=== PATIENT | female | born 1950 | race Caucasian/White ===

== ENCOUNTER 2019-08-08 19:57 | Inpatient (IN) | payer BC, MEDICARE ==
[~2019-08-08] VITALS: Ht 154.9 cm; Wt 88.6 kg
--- NOTE | 2019-08-08 20:04 | NUR ---
Verbal order from Dr Maciel to cancel the NS bolus since patient had 3L of NS at [facility].
[2019-08-08] MEDS ORDERED: normal saline 1000ML IV soln IV ONE (20:05)
--- NOTE | 2019-08-08 20:31 | NUR ---
Pt aware that we need a urine sample when she is able to give us one.
[2019-08-08 20:37] LABS: BASOPHILS % (AUTO) 0.1 % (0-1); EOSINOPHILS # (AUTO) 0.1 X10'3 (0-0.9); EOSINOPHILS % (AUTO) 0.5 % (0-6); HEMOGLOBIN 10.9 g/dl (12.0-16.0); LYMPHOCYTES # (AUTO) 0.6 X10'3 (1.1-4.8); LYMPHOCYTES % (AUTO) 4.2 % (21-51); MEAN CORPUSCULAR HEMOGLOBIN 31.1 PG (27.0-31.0); MEAN CORPUSCULAR HGB CONC 32.9 g/dL (33.0-36.5); MEAN CORPUSCULAR VOLUME 94.5 FL (78-98); MEAN PLATELET VOLUME 8.6 FL (7.4-10.4); MONOCYTES # (AUTO) 0.8 X10'3 (0-0.9); MONOCYTES % (AUTO) 5.6 % (2-12); NEUTROPHILS % (AUTO) 89.6 % (42-75); PLATELET COUNT 198 X10'3 (140-440); RED BLOOD COUNT 3.49 X10'6 (4.20-5.60); RED CELL DISTRIBUTION WIDTH 14.4 % (11.5-14.5); WHITE BLOOD COUNT 14.5 X10'3 (4.5-11.0)
[2019-08-08 20:48] LABS: PARTIAL THROMBOPLASTIN TIME 25 SECONDS (22-32)
[2019-08-08 20:57] LABS: ALANINE AMINOTRANSFERASE 19 U/L (12-78); ALBUMIN 2.8 G/DL (3.4-5.0); ALBUMIN/GLOBULIN RATIO 0.7 (1.1-1.5); ALKALINE PHOSPHATASE 67 IU/L (46-116); ANION GAP 12 (8-16); ASPARTATE AMINO TRANSFERASE 13 U/L (10-37); BILIRUBIN,TOTAL 0.7 MG/DL (0.1-1.0); BLOOD UREA NITROGEN 32 MG/DL (7-18); BUN/CREATININE RATIO 16.8 (6.6-38.0); CALCIUM 8.7 MG/DL (8.5-10.1); CHLORIDE 105 MMOL/L (99-107); CREATININE 1.91 MG/DL (0.40-0.90); GLUCOSE 137 MG/DL (70-104); MAGNESIUM 1.8 MG/DL (1.5-2.4); SODIUM 140 MMOL/L (135-145); TOTAL CARBON DIOXIDE 22.8 MMOL/L (24-32); eGFR 26 ML/MIN
[2019-08-08] MEDS ORDERED: temazepam 15mg capsule PO PRN (21:00)
[2019-08-08] MEDS ORDERED: GLIP5TAB13 PO (21:05)
[2019-08-08] MEDS ORDERED: SITA100T11 PO (21:05)
[2019-08-08] MEDS ORDERED: METF1000 PO (21:05)
[2019-08-08] MEDS ORDERED: GABA600T13 PO (21:05)
[2019-08-08] MEDS ORDERED: DULO-31 PO (21:05)
[2019-08-08] MEDS ORDERED: MERC50TA16 PO (21:05)
[2019-08-08] MEDS ORDERED: ATOR10TA70 PO (21:05)
[2019-08-08] MEDS ORDERED: PANT40TA4 PO (21:05)
[2019-08-08] MEDS ORDERED: BENA1TAB14 PO (21:05)
[2019-08-08] MEDS ORDERED: FOLI0.4T14 PO (21:12)
[2019-08-08] MEDS ORDERED: bisacodyl 10mg suppository rectal RC PRN (21:30)
[2019-08-08] MEDS ORDERED: magnesium Cl slow-release 64mg tablet PO PRN (21:30)
[2019-08-08] MEDS ORDERED: magnesium 2GM in 50ml NS 50 ML IV PRN (21:30)
[2019-08-08] MEDS ORDERED: metoclopramide 5 mg/ml inj IV PRN (21:30)
[2019-08-08] MEDS ORDERED: magnesium hydroxide 30ml (MOM) UD suspension PO PRN (21:30)
[2019-08-08] MEDS ORDERED: HYDROcodone/acetaminophen 10/325mg tab PO PRN (21:30)
[2019-08-08] MEDS ORDERED: acetaminophen 650mg rectal suppository RC PRN (21:30)
[2019-08-08] MEDS ORDERED: potassium Cl 20 mEq SR tablet PO PRN ×2 (21:30)
[2019-08-08] MEDS ORDERED: HYDROmorphone inj. 0.5 MG/0.5 ML DISP.SYRIN IV PRN (21:30)
[2019-08-08] MEDS ORDERED: potassium CL 10mEq/100ml bag 100 ML IV PRN ×2 (21:30)
[2019-08-08] MEDS ORDERED: ondansetron/PF 4mg/2ml inj IV PRN (21:30)
[2019-08-08] MEDS ORDERED: HYDROmorphone 1 mg/ml syringe IV PRN (21:30)
[2019-08-08] MEDS ORDERED: magnesium 4gm in 100ml NS 100 ML IV PRN (21:30)
[2019-08-08] MEDS ORDERED: mag hydrox/Alum hydrox/simeth 30ml oral suspension PO PRN (21:30)
[2019-08-08] MEDS ORDERED: acetaminophen 325mg tablet PO PRN ×2 (21:30)
[2019-08-08 21:39] LABS: CLARITY,URINE CLEAR (Clear); COLOR,URINE YELLOW (Yellow); GLUCOSE, URINE NEGATIVE (Neg); KETONES,URINE NEGATIVE (Neg); LEUKOCYTE ESTERASE ,URINE SMALL (Neg); NITRITES, URINE NEGATIVE (Neg); OCCULT BLOOD,URINE NEGATIVE (Neg); PH,URINE 5.5 (4.8-8.0); PROTEIN,URINE 30 mg/dl (Neg)
[2019-08-08 21:41] LABS: UA COLLECTION TYPE CLN CATCH MIDSTREAM
[2019-08-08 21:50] LABS: BACTERIA,URINE FEW /HPF (Neg); RBC,URINE NONE SEEN /HPF (0-2); SQUAMOUS EPITHELIAL CELL,UR FEW /LPF (FEW); WBC,URINE 0-4 /HPF (0-4)
[2019-08-08 22:50] VITALS: BP 122/45
[2019-08-08] MEDS: VANCOmycin 1250MG/NS 250ml Bag 250 ML IV SCH (23:24)
[2019-08-08] MEDS: normal saline 1000ml 1,000 ML IV SCH (23:28)
--- NOTE | 2019-08-08 23:35 | NUR ---
PT'S EKG SHOWED AFIB. PT IS NOT ON ANY BLOOD THINNERS AND NOT IN HISTORY. DR. FAIRBANKS MADE AWARE THIS IS NEW FOR THE PATIENT. LEFT MESSAGE WITH RECEIVING NURSE ON ORTH ABOUT PT'S NEW ONSET AFIB FROM EKG FOUND AT [facility] IN THE ED. DR. FAIRBANKS STATES HE WILL F/U WITH IT.
--- NOTE | 2019-08-08 23:37 | NUR ---
LAST NOTE IN REGARDS TO NEW ONSET AFIB WAS WRITTEN BY THIS NURSE LYSSA SCHERER NOT LYSSA GLEZ.
[2019-08-09] VITALS (20 sets, daily range): BP systolic 94–135; BP diastolic 31–84
[2019-08-09] MEDS: piperacillin/tazo 3.375gm/50ml 50 ML IV SCH ×3 (01:28→16:03)
[2019-08-09 05:09] LABS: BASOPHILS % (AUTO) 0.4 % (0-1); EOSINOPHILS # (AUTO) 0.1 X10'3 (0-0.9); EOSINOPHILS % (AUTO) 0.7 % (0-6); HEMOGLOBIN 9.3 g/dl (12.0-16.0); LYMPHOCYTES # (AUTO) 0.7 X10'3 (1.1-4.8); LYMPHOCYTES % (AUTO) 5.4 % (21-51); MEAN CORPUSCULAR HEMOGLOBIN 31.1 PG (27.0-31.0); MEAN CORPUSCULAR HGB CONC 33.2 g/dL (33.0-36.5); MEAN CORPUSCULAR VOLUME 93.6 FL (78-98); MEAN PLATELET VOLUME 9.1 FL (7.4-10.4); MONOCYTES # (AUTO) 0.9 X10'3 (0-0.9); MONOCYTES % (AUTO) 7.2 % (2-12); NEUTROPHILS # (AUTO) 11.1 X10'3 (1.8-7.7); NEUTROPHILS % (AUTO) 86.3 % (42-75); PLATELET COUNT 202 X10'3 (140-440); RED CELL DISTRIBUTION WIDTH 14.4 % (11.5-14.5); WHITE BLOOD COUNT 12.9 X10'3 (4.5-11.0)
[2019-08-09 05:20] LABS: ALANINE AMINOTRANSFERASE 15 U/L (12-78); ALBUMIN 2.4 G/DL (3.4-5.0); ALBUMIN/GLOBULIN RATIO 0.6 (1.1-1.5); ALKALINE PHOSPHATASE 65 IU/L (46-116); ANION GAP 9 (8-16); ASPARTATE AMINO TRANSFERASE 7 U/L (10-37); BILIRUBIN,TOTAL 0.5 MG/DL (0.1-1.0); BLOOD UREA NITROGEN 31 MG/DL (7-18); BUN/CREATININE RATIO 17.9 (6.6-38.0); CALCIUM 8.7 MG/DL (8.5-10.1); CHLORIDE 109 MMOL/L (99-107); CHOL/HDL RATIO 2.8 (0.00-4.99); CHOLESTEROL 116 MG/DL (0-200); CREATININE 1.73 MG/DL (0.40-0.90); GLUCOSE 140 MG/DL (70-104); HDL CHOLESTEROL 42 MG/DL (35-60); LDL CHOLESTEROL 56 MG/DL (50-100); MAGNESIUM 1.8 MG/DL (1.5-2.4); POTASSIUM 3.9 MMOL/L (3.5-5.1); SODIUM 141 MMOL/L (135-145); TOTAL CARBON DIOXIDE 23.2 MMOL/L (24-32); TOTAL PROTEIN 6.1 G/DL (6.4-8.2); TRIGLYCERIDES 96 MG/DL (20-135); eGFR 29 ML/MIN
--- NOTE | 2019-08-09 06:15 | NUR ---
Patient in room ORTHO 4016. I have received report from LYSSA Araiza, and had the opportunity to ask questions and assume patient care.
[2019-08-09] MEDS: normal saline 1000ml 1,000 ML IV SCH ×2 (07:26→14:58)
[2019-08-09] MEDS: K and/or MAG REPLACEMENT MC SCH ×2 (08:00→20:00)
[2019-08-09] MEDS: duloxetine 30mg CAPSULE.DR PO SCH (08:11)
[2019-08-09] MEDS: folic acid 0.4mg tablet PO SCH (08:11)
[2019-08-09] MEDS: atorvastatin 10mg tablet PO SCH (08:12)
[2019-08-09] MEDS: lisinopril 20mg tablet PO SCH (08:13)
[2019-08-09] MEDS: HYDROchlorothiazide 12.5mg capsule PO SCH (08:13)
[2019-08-09] MEDS: pantoprazole 40mg Tablet.DR PO SCH (08:13)
[2019-08-09] MEDS ORDERED: ringers solution, lacted 1,000 ML IV SCH (10:58)
[2019-08-09] MEDS ORDERED: ondansetron/PF 4mg/2ml inj IV PRN (11:00)
[2019-08-09] MEDS ORDERED: morphine 4 MG/ML inj SYRINge IV PRN (11:00)
[2019-08-09] MEDS ORDERED: meperidine/PF 25mg/ml syringe IV PRN (11:00)
[2019-08-09] MEDS ORDERED: proCHLORperazine 10 MG/2 ml inj IV PRN (11:00)
[2019-08-09] MEDS ORDERED: HYDROmorphone inj. 0.5 MG/0.5 ML DISP.SYRIN IV PRN ×2 (11:00)
[2019-08-09] MEDS ORDERED: morphine 2 MG/ML inj. syringe IV PRN (11:00)
[2019-08-09] MEDS ORDERED: sevoflurane 250ml liquid IH ONE (11:52)
[2019-08-09] MEDS ORDERED: midazolam 2 mg/2 ml injection ONE (11:59)
[2019-08-09] MEDS ORDERED: LIDOcaine 2% (20mg/ml) 5ml vial ONE (12:05)
[2019-08-09] MEDS ORDERED: propofol inj 20 ML IV ONE (12:05)
[2019-08-09] MEDS ORDERED: fentaNYL/PF 50MCG/1 ML 2ML syringe ONE (12:06)
[2019-08-09] MEDS ORDERED: dexamethasone sod phosphate 4mg/ml inj. ONE (12:08)
[2019-08-09] MEDS ORDERED: ondansetron/PF 4mg/2ml inj ONE (12:08)
--- NOTE | 2019-08-09 12:51 | NUR ---
DM Consult: Pt admit w/ L foot venous ulcer, cellulitis, and currently in OR per RN. A1C 7.2. Pt would benefit from high protein/DM eds once stable post-op. Will continue to monitor. Rec: 1. advance to carb controlled diet as medically indicated post-op 2. monitor for ONS needs post-op 3. routine bowel care 4. MVI for wound healing post-op 5. wt per rx 6. DM/high protein eds once stable post-op Addendum: 08/09/19 at [address] Amended: Links added.
--- NOTE | 2019-08-09 13:02 | NUR ---
Received from OR via , accompanied by Anesthesiologist DR BUTLER and report given by Anesthesiolgist. PT IS AWAKE, ALERT, MOVING EXT X 4, RIGHT PEDAL PULSE +3, LEFT PEDAL PULSE DOPPLER, LEFT GREAT TOE AMP HAS ONE PIECE OF BLACK SPONGE WITH WOUND VAC 125MMHG, LOW, CONT, NO C/O PAIN, VSS, PIV RIGHT AC 18G PATENT WITH LR 100ML/HR, SCDS.
--- NOTE | 2019-08-09 14:00 | NUR ---
Report called to receiving nurse. Transferred via BED Belongings . Special Issues communicated to receiving nurse.PT IS AWAKE, ALERT, MOVING EXT X 4, LEFT PEDAL PULSE DOPPLER, NO C/O PAIN, VSS, JAM ICE WATER, PIV PATENT, WOUND VAC TO 125MMHG LOW CONT. PLACED WOUND VAC SETTING AND WOUND CARE CONSULT ORDERS, PT MEETS DISCHARGE CRITERIA.
--- NOTE | 2019-08-09 18:15 | NUR ---
Problems reprioritized. Patient report given, questions answered & plan of care reviewed with LYSSA Taylor.
[2019-08-09] MEDS ORDERED: linagliptin 5mg tablet PO SCH (19:28)
[2019-08-09] MEDS ORDERED: MESSAGE TO PHARMACY PO ONE (20:05)
[2019-08-09] MEDS ORDERED: dextrose 50%-water 50ml dispensing syringe IV PRN ×2 (20:05)
[2019-08-09] MEDS ORDERED: glucagon, human recombinant 1mg kit SUBCUT PRN (20:05)
[2019-08-09] MEDS ORDERED: dextrose ORAL solution 15 GM/59 ML bottle PO PRN ×2 (20:05)
[2019-08-09] MEDS: gabapentin 300mg capsule PO SCH (21:18)
[2019-08-09] MEDS: HYDROcodone/acetaminophen 5mg/325mg tablet PO PRN (21:27)
[2019-08-09] MEDS: insulin glargine (Lantus) pen - multi-dose SQ SCH (21:43)
[2019-08-09] MEDS: insulin Lispro (HumaLOG) vial - multi-dose SQ SCH (21:46)
[2019-08-09] MEDS: VANCOmycin 1250MG/NS 250ml Bag 250 ML IV SCH (23:41)
[2019-08-10] MEDS: piperacillin/tazo 3.375gm/50ml 50 ML IV SCH ×3 (00:56→15:54)
[2019-08-10] MEDS: normal saline 1000ml 1,000 ML IV SCH ×3 (01:39→23:26)
[2019-08-10 02:00] VITALS: BP 115/55
[2019-08-10 04:49] LABS: BASOPHILS % (AUTO) 0.1 % (0-1); EOSINOPHILS % (AUTO) 0 % (0-6); HEMATOCRIT 27.4 % (35.0-45.0); HEMOGLOBIN 9.1 g/dl (12.0-16.0); LYMPHOCYTES # (AUTO) 0.4 X10'3 (1.1-4.8); LYMPHOCYTES % (AUTO) 4.2 % (21-51); MEAN CORPUSCULAR HEMOGLOBIN 31.2 PG (27.0-31.0); MEAN CORPUSCULAR HGB CONC 33.3 g/dL (33.0-36.5); MEAN CORPUSCULAR VOLUME 93.6 FL (78-98); MONOCYTES # (AUTO) 0.5 X10'3 (0-0.9); MONOCYTES % (AUTO) 5.2 % (2-12); NEUTROPHILS # (AUTO) 9.5 X10'3 (1.8-7.7); NEUTROPHILS % (AUTO) 90.5 % (42-75); PLATELET COUNT 214 X10'3 (140-440); RED BLOOD COUNT 2.93 X10'6 (4.20-5.60); RED CELL DISTRIBUTION WIDTH 14.2 % (11.5-14.5); WHITE BLOOD COUNT 10.5 X10'3 (4.5-11.0)
[2019-08-10 05:02] LABS: ALANINE AMINOTRANSFERASE 22 U/L (12-78); ALBUMIN 2.2 G/DL (3.4-5.0); ALBUMIN/GLOBULIN RATIO 0.6 (1.1-1.5); ALKALINE PHOSPHATASE 58 IU/L (46-116); ANION GAP 8 (8-16); ASPARTATE AMINO TRANSFERASE 15 U/L (10-37); BILIRUBIN,TOTAL 0.3 MG/DL (0.1-1.0); BLOOD UREA NITROGEN 28 MG/DL (7-18); BUN/CREATININE RATIO 19.2 (6.6-38.0); CALCIUM 8.5 MG/DL (8.5-10.1); CHLORIDE 108 MMOL/L (99-107); CREATININE 1.46 MG/DL (0.40-0.90); GLUCOSE 209 MG/DL (70-104); MAGNESIUM 1.8 MG/DL (1.5-2.4); POTASSIUM 4.3 MMOL/L (3.5-5.1); SODIUM 138 MMOL/L (135-145); TOTAL CARBON DIOXIDE 21.8 MMOL/L (24-32); TOTAL PROTEIN 6.1 G/DL (6.4-8.2); eGFR 35 ML/MIN
[2019-08-10 06:00] VITALS: BP 115/56
[2019-08-10] MEDS: K and/or MAG REPLACEMENT MC SCH ×2 (08:00→20:00)
[2019-08-10] MEDS: HYDROchlorothiazide 12.5mg capsule PO SCH (08:14)
[2019-08-10] MEDS: atorvastatin 10mg tablet PO SCH (08:14)
[2019-08-10] MEDS: folic acid 0.4mg tablet PO SCH (08:14)
[2019-08-10] MEDS: duloxetine 30mg CAPSULE.DR PO SCH (08:14)
[2019-08-10] MEDS: lisinopril 20mg tablet PO SCH (08:17)
[2019-08-10] MEDS: pantoprazole 40mg Tablet.DR PO SCH (08:18)
[2019-08-10] MEDS: insulin Lispro (HumaLOG) vial - multi-dose SQ SCH ×2 (08:35→19:03)
[2019-08-10 10:00] VITALS: BP 110/53
--- NOTE | 2019-08-10 17:46 | NUR ---
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 Pt seen by RD for written/verbal DM/high protein eds w/ RD contact information provided. Pt PO 75-100% past 2 meals meeting needs. 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 DM Consult: Pt admit w/ L foot venous ulcer, cellulitis, and currently in OR per RN. A1C 7.2. Pt would benefit from high protein/DM eds once stable post-op. Will continue to monitor. Rec: 1. continue carb controlled diet 2. strawberry Narinder smoothie BIDBD for wound healing 3. routine bowel care 4. MVI for wound healing post-op 5. wt per rx Addendum: 08/10/19 at [address] Amended: Links added.
[2019-08-10 18:00] VITALS: BP 122/58
--- NOTE | 2019-08-10 18:30 | NUR ---
Problems reprioritized. Patient report given, questions answered & plan of care reviewed with LYSSA Chowdhury.
--- NOTE | 2019-08-10 19:40 | NUR ---
Pulled 2mg and gave 2mg omnicel records show only 1mg was pulled. Pharmacists was called and was educated on how to fix discrepancy.
[2019-08-10] MEDS: gabapentin 300mg capsule PO SCH (20:39)
[2019-08-10] MEDS: lactobacillus rhamnosus 10,000 MMU CELLS/CAPSULE PO SCH (20:40)
[2019-08-10] MEDS: HYDROcodone/acetaminophen 5mg/325mg tablet PO PRN (20:40)
[2019-08-10] MEDS: insulin glargine (Lantus) pen - multi-dose SQ SCH (20:46)
[2019-08-10 22:00] VITALS: BP 132/55
[2019-08-10] MEDS: VANCOmycin 1250MG/NS 250ml Bag 250 ML IV SCH (23:14)
[2019-08-11] MEDS ORDERED: piperacillin/tazo 3.375gm/50ml 50 ML IV SCH (01:22)
[2019-08-11 06:00] VITALS: BP 121/60
[2019-08-11 06:06] LABS: BASOPHILS % (AUTO) 0.3 % (0-1); EOSINOPHILS # (AUTO) 0.1 X10'3 (0-0.9); EOSINOPHILS % (AUTO) 0.6 % (0-6); HEMATOCRIT 27.1 % (35.0-45.0); LYMPHOCYTES # (AUTO) 1.5 X10'3 (1.1-4.8); LYMPHOCYTES % (AUTO) 16.5 % (21-51); MEAN CORPUSCULAR HGB CONC 33.1 g/dL (33.0-36.5); MEAN CORPUSCULAR VOLUME 93.7 FL (78-98); MONOCYTES # (AUTO) 0.8 X10'3 (0-0.9); MONOCYTES % (AUTO) 9.1 % (2-12); NEUTROPHILS # (AUTO) 6.8 X10'3 (1.8-7.7); NEUTROPHILS % (AUTO) 73.5 % (42-75); PLATELET COUNT 248 X10'3 (140-440); RED BLOOD COUNT 2.89 X10'6 (4.20-5.60); RED CELL DISTRIBUTION WIDTH 14.2 % (11.5-14.5); WHITE BLOOD COUNT 9.2 X10'3 (4.5-11.0)
--- NOTE | 2019-08-11 06:17 | NUR ---
Problems reprioritized. Patient report given, questions answered & plan of care reviewed with
[2019-08-11 06:29] LABS: ALANINE AMINOTRANSFERASE 26 U/L (12-78); ALBUMIN 2.2 G/DL (3.4-5.0); ALBUMIN/GLOBULIN RATIO 0.6 (1.1-1.5); ALKALINE PHOSPHATASE 55 IU/L (46-116); ANION GAP 8 (8-16); ASPARTATE AMINO TRANSFERASE 16 U/L (10-37); BILIRUBIN,TOTAL 0.3 MG/DL (0.1-1.0); BLOOD UREA NITROGEN 30 MG/DL (7-18); BUN/CREATININE RATIO 18.9 (6.6-38.0); CALCIUM 8.8 MG/DL (8.5-10.1); CHLORIDE 110 MMOL/L (99-107); CREATININE 1.59 MG/DL (0.40-0.90); GLUCOSE 121 MG/DL (70-104); MAGNESIUM 1.7 MG/DL (1.5-2.4); POTASSIUM 4.5 MMOL/L (3.5-5.1); SODIUM 141 MMOL/L (135-145); TOTAL CARBON DIOXIDE 23.5 MMOL/L (24-32); TOTAL PROTEIN 6.1 G/DL (6.4-8.2); eGFR 32 ML/MIN
--- NOTE | 2019-08-11 06:30 | NUR ---
Patient in room ORTHO 4016. I have received report from LYSSA Betts and had the opportunity to ask questions and assume patient care.
[2019-08-11] MEDS ORDERED: JUVEN Smoothie Arginine/Glut./Ca2+Bmb (Juven 19.3pkt) 240ml cup PO SCH (07:30)
[2019-08-11] MEDS: K and/or MAG REPLACEMENT MC SCH ×2 (08:00→20:00)
[2019-08-11] MEDS: normal saline 1000ml 1,000 ML IV SCH (08:23)
[2019-08-11] MEDS: lisinopril 20mg tablet PO SCH (08:25)
[2019-08-11] MEDS: lactobacillus rhamnosus 10,000 MMU CELLS/CAPSULE PO SCH ×2 (08:26→20:17)
[2019-08-11] MEDS: atorvastatin 10mg tablet PO SCH (08:26)
[2019-08-11] MEDS: HYDROchlorothiazide 12.5mg capsule PO SCH (08:26)
[2019-08-11] MEDS: HYDROcodone/acetaminophen 5mg/325mg tablet PO PRN (08:26)
[2019-08-11] MEDS: duloxetine 30mg CAPSULE.DR PO SCH (08:26)
[2019-08-11] MEDS: folic acid 0.4mg tablet PO SCH (08:27)
[2019-08-11] MEDS: pantoprazole 40mg Tablet.DR PO SCH (08:27)
[2019-08-11] MEDS: insulin Lispro (HumaLOG) vial - multi-dose SQ SCH ×2 (08:51→13:08)
[2019-08-11 09:08] LABS: TOTAL CELLS COUNTED 100
[2019-08-11 09:09] LABS: ANISOCYTOSIS FEW; PLATELET ESTIMATE NORMAL; TOXIC GRANULATION 1+; TOXIC VACUOLATION FEW
[2019-08-11 10:00] VITALS: BP 117/51
[2019-08-11] MEDS: JUVEN Smoothie Arginine/Glut./Ca2+Bmb (Juven 19.3pkt) 240ml cup PO SCH (12:30)
--- NOTE | 2019-08-11 15:28 | NUR ---
Reassessment: Pt PO 50-75% avg meals closer to 75% recently in addition to 100% Narinder smoothie per pt report yesterday during RD visit. LBM 08/08. Will continue to monitor for additional protein needs post-op. Rec: 1. continue carb controlled diet; encourage PO 2. strawberry Narinder smoothie BIDBD for wound healing 3. routine bowel care 4. MVI for wound healing post-op 5. wt per rx Addendum: 08/11/19 at [address] Amended: Links added. Addendum: 08/11/19 at [address] CORRECTION: Reassessment: Pt PO 50-75% avg meals closer to 75% recently in addition to starting Narinder smoothie today since MD see ONS. Dietary notified. LBM 08/08. Will continue to monitor for additional protein needs post-op.
[2019-08-11] MEDS: amox tr/potassium clavulanate 875/125mg TAB PO SCH (17:21)
[2019-08-11] MEDS: DOXYCYCLINE 100MG CAPSULE PO SCH (17:23)
[2019-08-11 18:00] VITALS: BP_SYST 131; BP_SYST 142; BP_DIAS 59; BP_DIAS 62
--- NOTE | 2019-08-11 18:10 | NUR ---
Patient in room ORTHO 4016. I have received report from Radha OMALLEY and had the opportunity to ask questions and assume patient care.
--- NOTE | 2019-08-11 18:30 | NUR ---
Problems reprioritized. Patient report given, questions answered & plan of care reviewed with LYSSA Betts.
[2019-08-11] MEDS: gabapentin 300mg capsule PO SCH (20:18)
[2019-08-11] MEDS: insulin glargine (Lantus) pen - multi-dose SQ SCH (21:30)
[2019-08-11] MEDS ORDERED: VANCOMYCIN LEVEL IV ONE (22:30)
[2019-08-12 06:00] VITALS: BP 142/62
--- NOTE | 2019-08-12 06:31 | NUR ---
Problems reprioritized. Patient report given, questions answered & plan of care reviewed with Stephanie OMALLEY.
[2019-08-12 06:45] LABS: BASOPHILS % (AUTO) 0.3 % (0-1); EOSINOPHILS # (AUTO) 0.1 X10'3 (0-0.9); EOSINOPHILS % (AUTO) 1.1 % (0-6); HEMATOCRIT 28.6 % (35.0-45.0); HEMOGLOBIN 9.5 g/dl (12.0-16.0); LYMPHOCYTES # (AUTO) 1.6 X10'3 (1.1-4.8); LYMPHOCYTES % (AUTO) 14.3 % (21-51); MEAN CORPUSCULAR HEMOGLOBIN 30.9 PG (27.0-31.0); MEAN CORPUSCULAR HGB CONC 33.3 g/dL (33.0-36.5); MEAN CORPUSCULAR VOLUME 92.8 FL (78-98); MEAN PLATELET VOLUME 8.3 FL (7.4-10.4); MONOCYTES # (AUTO) 1.4 X10'3 (0-0.9); MONOCYTES % (AUTO) 12.9 % (2-12); NEUTROPHILS # (AUTO) 7.9 X10'3 (1.8-7.7); NEUTROPHILS % (AUTO) 71.4 % (42-75); PLATELET COUNT 282 X10'3 (140-440); RED BLOOD COUNT 3.08 X10'6 (4.20-5.60); RED CELL DISTRIBUTION WIDTH 14.1 % (11.5-14.5); WHITE BLOOD COUNT 11.1 X10'3 (4.5-11.0)
[2019-08-12 07:03] LABS: ALANINE AMINOTRANSFERASE 26 U/L (12-78); ALBUMIN 2.3 G/DL (3.4-5.0); ALBUMIN/GLOBULIN RATIO 0.6 (1.1-1.5); ALKALINE PHOSPHATASE 67 IU/L (46-116); ANION GAP 6 (8-16); ASPARTATE AMINO TRANSFERASE 15 U/L (10-37); BILIRUBIN,TOTAL 0.3 MG/DL (0.1-1.0); BLOOD UREA NITROGEN 29 MG/DL (7-18); BUN/CREATININE RATIO 19.9 (6.6-38.0); CALCIUM 9.1 MG/DL (8.5-10.1); CHLORIDE 108 MMOL/L (99-107); CREATININE 1.46 MG/DL (0.40-0.90); GLUCOSE 126 MG/DL (70-104); MAGNESIUM 1.6 MG/DL (1.5-2.4); POTASSIUM 4.2 MMOL/L (3.5-5.1); SODIUM 139 MMOL/L (135-145); TOTAL CARBON DIOXIDE 24.6 MMOL/L (24-32); TOTAL PROTEIN 6.3 G/DL (6.4-8.2); eGFR 35 ML/MIN
[2019-08-12] MEDS: JUVEN Smoothie Arginine/Glut./Ca2+Bmb (Juven 19.3pkt) 240ml cup PO SCH ×2 (07:30→13:16)
[2019-08-12 07:51] LABS: PLATELET ESTIMATE NORMAL; TOTAL CELLS COUNTED 100
[2019-08-12] MEDS: K and/or MAG REPLACEMENT MC SCH (08:00)
[2019-08-12] MEDS: insulin Lispro (HumaLOG) vial - multi-dose SQ SCH ×2 (08:22→12:53)
[2019-08-12] MEDS: amox tr/potassium clavulanate 875/125mg TAB PO SCH (08:24)
[2019-08-12] MEDS: duloxetine 30mg CAPSULE.DR PO SCH (08:24)
[2019-08-12] MEDS: lactobacillus rhamnosus 10,000 MMU CELLS/CAPSULE PO SCH (08:25)
[2019-08-12] MEDS: DOXYCYCLINE 100MG CAPSULE PO SCH (08:25)
[2019-08-12] MEDS: atorvastatin 10mg tablet PO SCH (08:25)
[2019-08-12] MEDS: folic acid 0.4mg tablet PO SCH (08:25)
[2019-08-12] MEDS: pantoprazole 40mg Tablet.DR PO SCH (08:25)
[2019-08-12] MEDS: lisinopril 20mg tablet PO SCH (08:29)
[2019-08-12] MEDS: HYDROchlorothiazide 12.5mg capsule PO SCH (08:29)
[2019-08-12 10:00] VITALS: BP 140/66
[2019-08-12] MEDS ORDERED: AMOX-580 PO (14:18)
[2019-08-12] MEDS ORDERED: DOXY-224 PO (14:18)
--- NOTE | 2019-08-12 14:33 | NUR ---
Facility receiving patient wanted wound vac removed, made aware and approved for wound vac to be removed. Wound vac removed, wet to dry dressing applied. Patient tolerated removal of wound vac well.
--- NOTE | 2019-08-12 14:34 | NUR ---
Report called to [facility].
--- NOTE | 2019-08-12 14:35 | NUR ---
PIV removed, cannula intact. Belongings gathered, patient ready for transfer to [facility].
--- NOTE | 2019-08-12 14:45 | NUR ---
Patient picked up by [facility]. Belongings sent with patient.
== END 2019-08-12 14:45 | DRG 239 ==
LOC: ER 19:57 → ED HOLD 21:26 → ORTHO 4S 22:25 → PACU 08-09 10:34 → ORTHO 4S 08-09 14:29
PROVIDERS: ADMIT Family Medicine; ATTEND Internal Medicine
PROC: 0Y6N0Z9 Detachment at Left Foot, Partial 1st Ray, Open Approach (ICD-10-PCS; 2019-08-09)
PROC: 0Y6Q0Z0 Detachment at Left 1st Toe, Complete, Open Approach (ICD-10-PCS; principal; 2019-08-09 11:52)
DX: E11.52 Type 2 diabetes mellitus with diabetic peripheral angiopathy with gangrene (principal); A48.0 Gas gangrene; L03.116 Cellulitis of left lower limb; N17.9 Acute kidney failure, unspecified; D62 Acute posthemorrhagic anemia; E11.628 Type 2 diabetes mellitus with other skin complications; E11.22 Type 2 diabetes mellitus with diabetic chronic kidney disease; E11.42 Type 2 diabetes mellitus with diabetic polyneuropathy; E11.621 Type 2 diabetes mellitus with foot ulcer; L97.529 Non-pressure chronic ulcer of other part of left foot with unspecified severity; K21.9 Gastro-esophageal reflux disease without esophagitis; F32.9 Major depressive disorder, single episode, unspecified; E78.5 Hyperlipidemia, unspecified; I12.9 Hypertensive chronic kidney disease with stage 1 through stage 4 chronic kidney disease, or unspecified chronic kidney disease; N18.9 Chronic kidney disease, unspecified; Z79.84 Long term (current) use of oral hypoglycemic drugs; Z90.711 Acquired absence of uterus with remaining cervical stump; Z90.49 Acquired absence of other specified parts of digestive tract; Z79.899 Other long term (current) drug therapy
CPT/HCPCS: 99285; Z7506; Z7508; 36415; 71045; 73620; 80053; 80061; 80202; 81001; 82948; 83036; 83605; 83735; 84145; 85025; 85610; 85730; 87040; 87081; 87088; 93005; 97110; 97116; 97161; 97164; 97530; A4618; A6449; A6550; A7000; G0378; J1100; J1815; J2001; J2250; J2405; J2543; J2704; J3010; J3370; J7030; J7120

== ENCOUNTER 2019-08-19 09:40 | Day surgery (SDC) | payer BC, MEDICARE ==
[~2019-08-19 09:40] MED LIST: AMOX-580 PO; ATOR10TA70 PO; BENA1TAB14 PO; DOXY-224 PO; DULO-31 PO; FOLI0.4T14 PO; GABA600T13 PO; GLIP5TAB13 PO; MERC50TA16 PO; METF1000 PO; PANT40TA4 PO; SITA100T11 PO
[2019-08-19] MEDS ORDERED: LIDOcaine 2% 5ml jelly ONE (10:10)
== END 2019-08-19 10:54 | disposition home or self-care (01) ==
LOC: WOUND CARE 09:40
PROVIDERS: ATTEND Orthopaedic Surgery
DX: T81.89XA Other complications of procedures, not elsewhere classified, initial encounter (principal); E11.622 Type 2 diabetes mellitus with other skin ulcer; L97.522 Non-pressure chronic ulcer of other part of left foot with fat layer exposed; E11.65 Type 2 diabetes mellitus with hyperglycemia; E11.52 Type 2 diabetes mellitus with diabetic peripheral angiopathy with gangrene; A48.0 Gas gangrene; E11.42 Type 2 diabetes mellitus with diabetic polyneuropathy; E11.22 Type 2 diabetes mellitus with diabetic chronic kidney disease; I12.9 Hypertensive chronic kidney disease with stage 1 through stage 4 chronic kidney disease, or unspecified chronic kidney disease; N18.9 Chronic kidney disease, unspecified; E78.5 Hyperlipidemia, unspecified; F32.9 Major depressive disorder, single episode, unspecified; Z90.710 Acquired absence of both cervix and uterus; Z89.412 Acquired absence of left great toe; Z79.84 Long term (current) use of oral hypoglycemic drugs; Z90.49 Acquired absence of other specified parts of digestive tract; Z90.711 Acquired absence of uterus with remaining cervical stump; Z79.899 Other long term (current) drug therapy; Y92.89 Other specified places as the place of occurrence of the external cause; Y83.8 Other surgical procedures as the cause of abnormal reaction of the patient, or of later complication, without mention of misadventure at the time of the procedure
CPT/HCPCS: 36416; 82948; 97597; 97598

== ENCOUNTER 2019-08-26 10:31 | Day surgery (SDC) | payer BC, MEDICARE ==
[~2019-08-26] VITALS: Ht 154.9 cm; Wt 89.0 kg
[2019-08-26] VITALS (8 sets, daily range): BP systolic 122–133; BP diastolic 50–72
[~2019-08-26 10:31] MED LIST changes: +AMOX-318 PO; -AMOX-580 PO; +BISA-155 PR; +DIPH25CA83 PO; +DOXY-1 PO; -DOXY-224 PO; +HCTZ25T PO; +HYDR-3964 PO; +LACT1CAP57 PO; +LISI40TA4 PO; +MAGN400O6 PO; +METF-900 PO; -METF1000 PO; +MULT-215 PO; +OMEP-50 PO; +OMEPRA; -PANT40TA4 PO; +SALINE ENEMA PR; +TYL650S PO; +ceFAZolin 1,000 MG/D5W 50ML IVPB Premixed bag IV ONE; +famotidine 20mg tablet PO ONE; +ringers solution, lacted 1,000 ML IV SCH
[2019-08-26] MEDS ORDERED: ondansetron/PF 4mg/2ml inj IV PRN (12:40)
[2019-08-26] MEDS ORDERED: morphine 2 MG/ML inj. syringe IV PRN (12:40)
[2019-08-26] MEDS ORDERED: morphine 4 MG/ML inj SYRINge IV PRN (12:40)
[2019-08-26] MEDS ORDERED: hydrALAZINE 20mg/ml inj. IV PRN (12:40)
[2019-08-26] MEDS ORDERED: labetalol 20mg/4ml (5mg/ml) syringe IV PRN (12:40)
[2019-08-26] MEDS ORDERED: fentaNYL/PF 50MCG/1 ML 2ML syringe IV PRN ×2 (12:40)
[2019-08-26] MEDS ORDERED: ringers solution, lacted 1,000 ML IV SCH (12:40)
[2019-08-26] MEDS ORDERED: mineral oil 10ml sterile, topical TP ONE ×2 (13:31→15:21)
[2019-08-26] MEDS ORDERED: sevoflurane 250ml liquid IH ONE (14:35)
[2019-08-26] MEDS ORDERED: fentaNYL/PF 50MCG/1 ML 2ML syringe ONE (14:39)
[2019-08-26] MEDS ORDERED: midazolam 2 mg/2 ml injection ONE (14:40)
[2019-08-26] MEDS ORDERED: propofol inj 20 ML IV ONE (14:42)
[2019-08-26] MEDS ORDERED: LIDOcaine 2% (20mg/ml) 5ml vial ONE (14:42)
[2019-08-26] MEDS ORDERED: ondansetron/PF 4mg/2ml inj ONE (14:44)
[2019-08-26] MEDS ORDERED: ePHEDrine 50MG/ML INJ. ONE (15:02)
--- NOTE | 2019-08-26 15:29 | NUR ---
Received from OR via [facility] , accompanied by Anesthesiologist JERALD and report given by Anesthesiolgist. PATIENT WITH 20G PIV IN LEFT UE RUNNING LR AT 100. DENIES PAIN. LEFT THIGH DRESSING IS CDI WELL TROY TO LEFT FOOT. VSS. 10L MASK ON WITH `100% SATURATIONS. Addendum: 08/26/19 at 1541 by Brayan Burch RN, RN Amended: Links added.
== END 2019-08-26 16:29 | disposition home or self-care (01) ==
LOC: PAS 10:31
PROVIDERS: ATTEND Orthopaedic Surgery
DX: Z48.1 Encounter for planned postprocedural wound closure (principal); E11.22 Type 2 diabetes mellitus with diabetic chronic kidney disease; I12.9 Hypertensive chronic kidney disease with stage 1 through stage 4 chronic kidney disease, or unspecified chronic kidney disease; N18.3 Chronic kidney disease, stage 3 (moderate); E78.5 Hyperlipidemia, unspecified; F32.9 Major depressive disorder, single episode, unspecified; E11.40 Type 2 diabetes mellitus with diabetic neuropathy, unspecified; E66.9 Obesity, unspecified; Z68.37 Body mass index [BMI] 37.0-37.9, adult; Z90.710 Acquired absence of both cervix and uterus; Z96.652 Presence of left artificial knee joint; Z89.412 Acquired absence of left great toe; Z98.890 Other specified postprocedural states; Z79.899 Other long term (current) drug therapy; Z90.49 Acquired absence of other specified parts of digestive tract; Z98.1 Arthrodesis status; Z82.49 Family history of ischemic heart disease and other diseases of the circulatory system; Z80.9 Family history of malignant neoplasm, unspecified
CPT/HCPCS: 13160; 15120; 82948; A6223; J0690; J2001; J2250; J2405; J2704; J3010; A4618; A6258; A6446; A6449; A7000; J7120

== ENCOUNTER 2019-09-03 11:15 | Outpatient (CLI) | payer BC, MEDICARE ==
[~2019-09-03 11:15] MED LIST changes: -OMEPRA; -ceFAZolin 1,000 MG/D5W 50ML IVPB Premixed bag IV ONE; -famotidine 20mg tablet PO ONE; -ringers solution, lacted 1,000 ML IV SCH
== END 2019-09-03 12:27 | disposition home or self-care (01) ==
LOC: WOUND CARE 11:15
PROVIDERS: ATTEND Nurse Practitioner
DX: T81.89XA Other complications of procedures, not elsewhere classified, initial encounter (principal); E11.622 Type 2 diabetes mellitus with other skin ulcer; L97.522 Non-pressure chronic ulcer of other part of left foot with fat layer exposed; E11.65 Type 2 diabetes mellitus with hyperglycemia; E11.52 Type 2 diabetes mellitus with diabetic peripheral angiopathy with gangrene; A48.0 Gas gangrene; E11.42 Type 2 diabetes mellitus with diabetic polyneuropathy; E11.22 Type 2 diabetes mellitus with diabetic chronic kidney disease; I12.9 Hypertensive chronic kidney disease with stage 1 through stage 4 chronic kidney disease, or unspecified chronic kidney disease; N18.9 Chronic kidney disease, unspecified; E78.5 Hyperlipidemia, unspecified; F32.9 Major depressive disorder, single episode, unspecified; Z90.710 Acquired absence of both cervix and uterus; Z89.412 Acquired absence of left great toe; Z79.84 Long term (current) use of oral hypoglycemic drugs; Z90.49 Acquired absence of other specified parts of digestive tract; Z90.711 Acquired absence of uterus with remaining cervical stump; Z79.899 Other long term (current) drug therapy; Y92.89 Other specified places as the place of occurrence of the external cause; Y83.8 Other surgical procedures as the cause of abnormal reaction of the patient, or of later complication, without mention of misadventure at the time of the procedure
CPT/HCPCS: 36416; 82948; G0463

== ENCOUNTER 2019-09-16 11:40 | Day surgery (SDC) | payer BC, MEDICARE ==
[2019-09-16] MEDS ORDERED: LIDOcaine 2% 5ml jelly ONE (12:12)
== END 2019-09-16 12:52 | disposition home or self-care (01) ==
LOC: WOUND CARE 11:40
PROVIDERS: ATTEND Nurse Practitioner
DX: T81.89XD Other complications of procedures, not elsewhere classified, subsequent encounter (principal); E11.622 Type 2 diabetes mellitus with other skin ulcer; L97.522 Non-pressure chronic ulcer of other part of left foot with fat layer exposed; E11.65 Type 2 diabetes mellitus with hyperglycemia; E11.52 Type 2 diabetes mellitus with diabetic peripheral angiopathy with gangrene; A48.0 Gas gangrene; E11.42 Type 2 diabetes mellitus with diabetic polyneuropathy; E11.22 Type 2 diabetes mellitus with diabetic chronic kidney disease; I12.9 Hypertensive chronic kidney disease with stage 1 through stage 4 chronic kidney disease, or unspecified chronic kidney disease; N18.9 Chronic kidney disease, unspecified; E78.5 Hyperlipidemia, unspecified; F32.9 Major depressive disorder, single episode, unspecified; Z90.710 Acquired absence of both cervix and uterus; Z89.412 Acquired absence of left great toe; Z79.84 Long term (current) use of oral hypoglycemic drugs; Z90.49 Acquired absence of other specified parts of digestive tract; Z90.711 Acquired absence of uterus with remaining cervical stump; Z79.899 Other long term (current) drug therapy; Y83.8 Other surgical procedures as the cause of abnormal reaction of the patient, or of later complication, without mention of misadventure at the time of the procedure
CPT/HCPCS: 36416; 82948; 97597

== ENCOUNTER 2022-01-12 14:43 | Inpatient (IN) | payer BC, MEDICARE ==
[~2022-01-12] VITALS: Ht 154.9 cm; Wt 96.8 kg
[~2022-01-12 14:43] MED LIST changes: -HCTZ25T PO; +HYDR25TA5 PO; +LINE600T14 PO; +LISI40TA13 PO; -LISI40TA4 PO; -OMEP-50 PO; +OMEP20CA16 PO
[2022-01-12] MEDS ORDERED: temazepam 15mg capsule PO PRN (21:00)
[2022-01-12 21:15] LABS: BASOPHILS # (AUTO) 0.1 X10'3 (0-0.2); EOSINOPHILS # (AUTO) 0.2 X10'3 (0-0.9); EOSINOPHILS % (AUTO) 2.9 % (0-6); HEMATOCRIT 35.3 % (35.0-45.0); HEMOGLOBIN 11.7 g/dl (12.0-16.0); LYMPHOCYTES # (AUTO) 1.1 X10'3 (1.1-4.8); LYMPHOCYTES % (AUTO) 21.5 % (21-51); MEAN CORPUSCULAR HEMOGLOBIN 31.3 PG (27.0-31.0); MEAN CORPUSCULAR HGB CONC 33.3 g/dL (33.0-36.5); MEAN CORPUSCULAR VOLUME 94.1 FL (78-98); MEAN PLATELET VOLUME 8.9 FL (7.4-10.4); MONOCYTES # (AUTO) 0.7 X10'3 (0-0.9); MONOCYTES % (AUTO) 13.5 % (2-12); NEUTROPHILS # (AUTO) 3.2 X10'3 (1.8-7.7); NEUTROPHILS % (AUTO) 61.1 % (42-75); PLATELET COUNT 312 X10'3 (140-440); RED BLOOD COUNT 3.75 X10'6 (4.20-5.60); RED CELL DISTRIBUTION WIDTH 16.4 % (11.5-14.5); WHITE BLOOD COUNT 5.3 X10'3 (4.5-11.0)
[2022-01-12 21:29] LABS: ALANINE AMINOTRANSFERASE 34 U/L (12-78); ALBUMIN 3.7 G/DL (3.4-5.0); ALBUMIN/GLOBULIN RATIO 0.8 (1.1-1.5); ALKALINE PHOSPHATASE 108 IU/L (46-116); ANION GAP 11 (8-16); ASPARTATE AMINO TRANSFERASE 20 U/L (10-37); BILIRUBIN,TOTAL 0.3 MG/DL (0.1-1.0); BLOOD UREA NITROGEN 38 MG/DL (7-18); BUN/CREATININE RATIO 16.7 (6.6-38.0); CALCIUM 9.6 MG/DL (8.5-10.1); CHLORIDE 97 MMOL/L (99-107); CREATININE 2.28 MG/DL (0.40-0.90); GLUCOSE 282 MG/DL (70-104); SODIUM 134 MMOL/L (135-145); TOTAL CARBON DIOXIDE 25.7 MMOL/L (24-32); TOTAL PROTEIN 8.4 G/DL (6.4-8.2); eGFR 21 ML/MIN
[2022-01-12] MEDS ORDERED: meropenem inj 500 MG in normal saline 100ml IV soln 100 ML IV ONE (22:15)
[2022-01-12] MEDS ORDERED: acetaminophen 325mg tablet PO PRN (23:50)
[2022-01-12] MEDS ORDERED: ondansetron/PF 4mg/2ml inj IV PRN (23:50)
[2022-01-12] MEDS ORDERED: HYDROcodone/acetaminophen 5mg/325mg tablet PO PRN (23:50)
[2022-01-12] MEDS ORDERED: magnesium hydroxide 30ml (MOM) UD suspension PO PRN (23:50)
[2022-01-12] MEDS ORDERED: mag hydrox/Alum hydrox/simeth 30ml oral suspension PO PRN (23:50)
[2022-01-12] MEDS ORDERED: diphenhydrAMINE 25mg capsule PO PRN (23:50)
[2022-01-12] MEDS ORDERED: diphenhydrAMINE 50 mg/ml inj IV PRN (23:50)
[2022-01-12] MEDS ORDERED: bisacodyl 10mg suppository rectal RC PRN (23:50)
[2022-01-12] MEDS ORDERED: morphine 2 MG/ML inj. syringe IV PRN ×2 (23:50)
[2022-01-12] MEDS ORDERED: ondansetron 4mg rapidly disintigrating tab PO PRN (23:50)
[2022-01-12] MEDS ORDERED: acetaminophen 650mg rectal suppository RC PRN (23:50)
[2022-01-12] MEDS ORDERED: dextrose 50%-water 50ml dispensing syringe IV PRN ×2 (23:55)
[2022-01-12] MEDS ORDERED: DEXTROSE 15 GM of carb/4 tabs (each vial/BOTTLE has 4 tablets) PO PRN ×2 (23:55)
[2022-01-12] MEDS ORDERED: glucagon, human recombinant 1mg kit SUBCUT PRN (23:55)
[2022-01-12] MEDS ORDERED: MESSAGE TO PHARMACY PO ONE (23:55)
[2022-01-13] MEDS ORDERED: BENA1TAB19 PO (00:33)
[2022-01-13] MEDS ORDERED: MESA1.2T3 PO (00:33)
[2022-01-13] MEDS ORDERED: SITA50TA7 PO (00:33)
[2022-01-13] MEDS ORDERED: ALBU8.5H17 PO (00:39)
[2022-01-13] MEDS ORDERED: FOLI1TAB27 PO (00:39)
[2022-01-13] MEDS ORDERED: PANT40TA54 PO (00:39)
[2022-01-13 00:57] LABS: C-REACTIVE PROTEIN 2.32 MG/DL (0.0-0.5); MAGNESIUM 2.3 MG/DL (1.5-2.4); PHOSPHORUS 4.6 MG/DL (2.3-4.5)
[2022-01-13 01:04] LABS: APTT 26 SECONDS (22-32)
[2022-01-13] MEDS ORDERED: diphenhydrAMINE 25mg capsule PO PRN (01:40)
[2022-01-13] MEDS ORDERED: albuterol 2.5 MG/3 ML nebule NEB PRN (01:40)
[2022-01-13] MEDS: heparin, porcine 5000 units/ml vial SQ SCH ×3 (02:18→16:47)
[2022-01-13] MEDS: normal saline 1000ml 1,000 ML IV SCH ×3 (02:18→16:54)
[2022-01-13 04:58] VITALS: BP 131/55
--- NOTE | 2022-01-13 06:40 | NUR ---
Patient in room PCU 3025. I have received report from Luke OMALLEY and had the opportunity to ask questions and assume patient care.
[2022-01-13 06:44] LABS: BASOPHILS % (AUTO) 0.8 % (0-1); EOSINOPHILS # (AUTO) 0.2 X10'3 (0-0.9); EOSINOPHILS % (AUTO) 3.2 % (0-6); HEMATOCRIT 31.2 % (35.0-45.0); HEMOGLOBIN 10.4 g/dl (12.0-16.0); LYMPHOCYTES % (AUTO) 19.1 % (21-51); MEAN CORPUSCULAR HEMOGLOBIN 31.3 PG (27.0-31.0); MEAN CORPUSCULAR HGB CONC 33.3 g/dL (33.0-36.5); MEAN PLATELET VOLUME 9.2 FL (7.4-10.4); MONOCYTES # (AUTO) 0.6 X10'3 (0-0.9); MONOCYTES % (AUTO) 11.1 % (2-12); NEUTROPHILS # (AUTO) 3.4 X10'3 (1.8-7.7); NEUTROPHILS % (AUTO) 65.8 % (42-75); PLATELET COUNT 259 X10'3 (140-440); RED BLOOD COUNT 3.32 X10'6 (4.20-5.60); RED CELL DISTRIBUTION WIDTH 16.1 % (11.5-14.5); WHITE BLOOD COUNT 5.2 X10'3 (4.5-11.0)
[2022-01-13 07:09] LABS: ALANINE AMINOTRANSFERASE 31 U/L (12-78); ALBUMIN 3.1 G/DL (3.4-5.0); ALBUMIN/GLOBULIN RATIO 0.8 (1.1-1.5); ALKALINE PHOSPHATASE 92 IU/L (46-116); ANION GAP 9 (8-16); ASPARTATE AMINO TRANSFERASE 31 U/L (10-37); BILIRUBIN,TOTAL 0.3 MG/DL (0.1-1.0); BLOOD UREA NITROGEN 38 MG/DL (7-18); BUN/CREATININE RATIO 17.8 (6.6-38.0); CALCIUM 8.8 MG/DL (8.5-10.1); CHLORIDE 101 MMOL/L (99-107); CREATININE 2.13 MG/DL (0.40-0.90); GLUCOSE 266 MG/DL (70-104); SODIUM 136 MMOL/L (135-145); TOTAL CARBON DIOXIDE 25.8 MMOL/L (24-32); TOTAL PROTEIN 7.2 G/DL (6.4-8.2); eGFR 23 ML/MIN
[2022-01-13 07:10] LABS: POTASSIUM 4.2 MMOL/L (3.5-5.1)
[2022-01-13 07:41] VITALS: BP 136/74
[2022-01-13] MEDS: meropenem inj 500 MG in normal saline 100ml IV soln 100 ML IV SCH ×2 (07:52→16:56)
[2022-01-13] MEDS: pantoprazole 40mg Tablet.DR PO SCH (07:54)
[2022-01-13] MEDS: HYDROchlorothiazide 25mg tablet PO SCH (07:54)
[2022-01-13] MEDS: docusate sod 100mg capsule PO SCH ×2 (07:54→20:00)
[2022-01-13] MEDS: folic acid 1mg tablet PO SCH (07:55)
[2022-01-13] MEDS: lisinopril 20mg tablet PO SCH (07:55)
[2022-01-13] MEDS: atorvastatin 10mg tablet PO SCH (07:55)
[2022-01-13] MEDS: mesalamine 1.2gm ER tablet PO SCH ×4 (08:00→20:32)
[2022-01-13 08:45] LABS: HEMOGLOBIN A1C 10.5 % (4.5-6.2)
[2022-01-13] MEDS: insulin Lispro (HumaLOG) vial - multi-dose SQ SCH ×3 (09:16→19:15)
--- NOTE | 2022-01-13 09:33 | NUR ---
Diabetes consult: Pt w/ hx of DM A1c 10.5 per EMR. Provided pt w/ written and verbal DM ed w/ RD contact info. Addendum: 01/13/22 at [address] Amended: Links added.
[2022-01-13 11:00] VITALS: BP 123/53
[2022-01-13] MEDS: loperamide 2mg capsule PO PRN (11:45)
[2022-01-13 15:30] VITALS: BP 127/50
--- NOTE | 2022-01-13 18:44 | NUR ---
Problems reprioritized. Patient report given, questions answered & plan of care reviewed with Tosin Leahy RN.
--- NOTE | 2022-01-13 18:45 | NUR ---
Patient in room PCU 3025. I have received report from WU OMALLEY AND BRITTNEY OMALLEY and had the opportunity to ask questions and assume patient care.
[2022-01-13 20:00] VITALS: BP 134/48
[2022-01-13] MEDS: duloxetine 30mg CAPSULE.DR PO SCH (20:32)
[2022-01-13] MEDS: gabapentin 300mg capsule PO SCH (20:33)
[2022-01-13 22:00] VITALS: BP 138/51
[2022-01-13] MEDS: insulin glargine (Lantus) pen - multi-dose SQ SCH (22:29)
[2022-01-14] MEDS: meropenem inj 500 MG in normal saline 100ml IV soln 100 ML IV SCH ×3 (00:47→16:10)
[2022-01-14] MEDS: heparin, porcine 5000 units/ml vial SQ SCH ×4 (00:50→23:36)
[2022-01-14 02:00] VITALS: BP 128/56
[2022-01-14] MEDS: normal saline 1000ml 1,000 ML IV SCH ×2 (04:59→16:25)
[2022-01-14 06:00] VITALS: BP 133/50
[2022-01-14 06:29] LABS: BASOPHILS % (AUTO) 0.8 % (0-1); EOSINOPHILS # (AUTO) 0.1 X10'3 (0-0.9); EOSINOPHILS % (AUTO) 3.5 % (0-6); HEMATOCRIT 29.2 % (35.0-45.0); HEMOGLOBIN 10.1 g/dl (12.0-16.0); LYMPHOCYTES # (AUTO) 1.1 X10'3 (1.1-4.8); MEAN CORPUSCULAR HEMOGLOBIN 32.2 PG (27.0-31.0); MEAN CORPUSCULAR HGB CONC 34.8 g/dL (33.0-36.5); MEAN CORPUSCULAR VOLUME 92.5 FL (78-98); MEAN PLATELET VOLUME 8.5 FL (7.4-10.4); MONOCYTES # (AUTO) 0.4 X10'3 (0-0.9); MONOCYTES % (AUTO) 9.4 % (2-12); NEUTROPHILS # (AUTO) 2.4 X10'3 (1.8-7.7); NEUTROPHILS % (AUTO) 59.3 % (42-75); PLATELET COUNT 252 X10'3 (140-440); RED BLOOD COUNT 3.15 X10'6 (4.20-5.60); RED CELL DISTRIBUTION WIDTH 15.8 % (11.5-14.5); WHITE BLOOD COUNT 4.1 X10'3 (4.5-11.0)
--- NOTE | 2022-01-14 06:40 | NUR ---
Problems reprioritized. Patient report given, questions answered & plan of care reviewed with SELENA OMALLEY.
[2022-01-14 06:43] LABS: ANION GAP 10 (8-16); BLOOD UREA NITROGEN 26 MG/DL (7-18); BUN/CREATININE RATIO 15.1 (6.6-38.0); CHLORIDE 106 MMOL/L (99-107); CREATININE 1.72 MG/DL (0.40-0.90); GLUCOSE 236 MG/DL (70-104); POTASSIUM 4.4 MMOL/L (3.5-5.1); SODIUM 139 MMOL/L (135-145); TOTAL CARBON DIOXIDE 23.1 MMOL/L (24-32)
[2022-01-14 06:44] LABS: ALANINE AMINOTRANSFERASE 31 U/L (12-78); ALBUMIN 2.8 G/DL (3.4-5.0); ALBUMIN/GLOBULIN RATIO 0.7 (1.1-1.5); ALKALINE PHOSPHATASE 88 IU/L (46-116); ASPARTATE AMINO TRANSFERASE 27 U/L (10-37); BILIRUBIN,TOTAL 0.3 MG/DL (0.1-1.0); CALCIUM 8.8 MG/DL (8.5-10.1); TOTAL PROTEIN 6.7 G/DL (6.4-8.2); eGFR 29 ML/MIN
--- NOTE | 2022-01-14 06:45 | NUR ---
Patient in room PCU 3025B. I have received report from RAMSES PEARCE RN and had the opportunity to ask questions and assume patient care.
[2022-01-14] MEDS: docusate sod 100mg capsule PO SCH ×2 (08:00→20:00)
[2022-01-14] MEDS: mesalamine 1.2gm ER tablet PO SCH ×4 (08:43→21:48)
[2022-01-14] MEDS: folic acid 1mg tablet PO SCH (08:43)
[2022-01-14] MEDS: lisinopril 20mg tablet PO SCH (08:44)
[2022-01-14] MEDS: pantoprazole 40mg Tablet.DR PO SCH (08:44)
[2022-01-14] MEDS: HYDROchlorothiazide 25mg tablet PO SCH (08:44)
[2022-01-14] MEDS: atorvastatin 10mg tablet PO SCH (08:45)
[2022-01-14] MEDS: insulin Lispro (HumaLOG) vial - multi-dose SQ SCH ×3 (09:02→19:44)
[2022-01-14] MEDS: loperamide 2mg capsule PO PRN (09:12)
[2022-01-14 11:00] VITALS: BP 128/46
[2022-01-14] MEDS: acetaminophen 325mg tablet PO PRN (13:43)
[2022-01-14 15:00] VITALS: BP 131/55
[2022-01-14 18:00] VITALS: BP 140/58
--- NOTE | 2022-01-14 18:12 | NUR ---
Student documentation: I have reviewed and agree with all assessments performed and documented by GORGE EARLY .
--- NOTE | 2022-01-14 18:50 | NUR ---
Patient in room PCU 3025. I have received report from Maria R Porter and Imelda student counselor and had the opportunity to ask questions and assume patient care.
--- NOTE | 2022-01-14 19:06 | NUR ---
Problems reprioritized. Patient report given, questions answered & plan of care reviewed with LYSSA ORDAZ.
[2022-01-14] MEDS: duloxetine 30mg CAPSULE.DR PO SCH (21:47)
[2022-01-14] MEDS: gabapentin 300mg capsule PO SCH (21:48)
[2022-01-14] MEDS: insulin glargine (Lantus) pen - multi-dose SQ SCH (21:58)
[2022-01-14 22:00] VITALS: BP 138/55
[2022-01-15] VITALS (7 sets, daily range): BP systolic 138–157; BP diastolic 54–67
[2022-01-15] MEDS: normal saline 1000ml 1,000 ML IV SCH ×3 (01:50→17:49)
[2022-01-15 06:27] LABS: BASOPHILS % (AUTO) 0.5 % (0-1); EOSINOPHILS # (AUTO) 0.2 X10'3 (0-0.9); EOSINOPHILS % (AUTO) 4.6 % (0-6); LYMPHOCYTES # (AUTO) 0.9 X10'3 (1.1-4.8); LYMPHOCYTES % (AUTO) 20.5 % (21-51); MEAN CORPUSCULAR HEMOGLOBIN 31.4 PG (27.0-31.0); MEAN CORPUSCULAR HGB CONC 33.4 g/dL (33.0-36.5); MEAN CORPUSCULAR VOLUME 94.2 FL (78-98); MEAN PLATELET VOLUME 8.5 FL (7.4-10.4); MONOCYTES # (AUTO) 0.5 X10'3 (0-0.9); MONOCYTES % (AUTO) 10.6 % (2-12); NEUTROPHILS # (AUTO) 2.8 X10'3 (1.8-7.7); NEUTROPHILS % (AUTO) 63.8 % (42-75); PLATELET COUNT 239 X10'3 (140-440); RED BLOOD COUNT 3.18 X10'6 (4.20-5.60); RED CELL DISTRIBUTION WIDTH 15.7 % (11.5-14.5); WHITE BLOOD COUNT 4.3 X10'3 (4.5-11.0)
[2022-01-15 06:50] LABS: ALANINE AMINOTRANSFERASE 31 U/L (12-78); ALBUMIN 2.8 G/DL (3.4-5.0); ALBUMIN/GLOBULIN RATIO 0.7 (1.1-1.5); ALKALINE PHOSPHATASE 88 IU/L (46-116); ANION GAP 10 (8-16); ASPARTATE AMINO TRANSFERASE 27 U/L (10-37); BILIRUBIN,TOTAL 0.3 MG/DL (0.1-1.0); BLOOD UREA NITROGEN 23 MG/DL (7-18); BUN/CREATININE RATIO 15.3 (6.6-38.0); CHLORIDE 106 MMOL/L (99-107); GLUCOSE 216 MG/DL (70-104); POTASSIUM 4.6 MMOL/L (3.5-5.1); SODIUM 138 MMOL/L (135-145); TOTAL CARBON DIOXIDE 22.4 MMOL/L (24-32); TOTAL PROTEIN 6.6 G/DL (6.4-8.2); eGFR 34 ML/MIN
--- NOTE | 2022-01-15 06:50 | NUR ---
Problems reprioritized. Patient report given, questions answered & plan of care reviewed with Maria R OMALLEY and Imelda inpatient nursing aide..
[2022-01-15] MEDS: docusate sod 100mg capsule PO SCH ×2 (08:00→20:00)
[2022-01-15] MEDS ORDERED: meropenem inj 500 MG in normal saline 100ml IV soln 100 ML IV SCH (08:00)
[2022-01-15] MEDS: folic acid 1mg tablet PO SCH (09:07)
[2022-01-15] MEDS: atorvastatin 10mg tablet PO SCH (09:08)
[2022-01-15] MEDS: pantoprazole 40mg Tablet.DR PO SCH (09:08)
[2022-01-15] MEDS: HYDROchlorothiazide 25mg tablet PO SCH (09:09)
[2022-01-15] MEDS: lisinopril 20mg tablet PO SCH (09:10)
[2022-01-15] MEDS: mesalamine 1.2gm ER tablet PO SCH ×4 (09:10→22:05)
[2022-01-15] MEDS: heparin, porcine 5000 units/ml vial SQ SCH ×2 (09:12→16:57)
[2022-01-15] MEDS: insulin Lispro (HumaLOG) vial - multi-dose SQ SCH ×2 (09:51→19:09)
[2022-01-15] MEDS: acetaminophen 325mg tablet PO PRN (11:26)
[2022-01-15] MEDS: meropenem inj 500 MG in normal saline 100ml IV soln 100 ML IV SCH ×2 (14:12→22:04)
--- NOTE | 2022-01-15 15:37 | NUR ---
PRESSURE ULCER EDUCATION: DEFINITION: A pressure ulcer is an area of skin that breaks down when you stay in one position too long. The constant pressure against the skin reduces the blood flow to that area and the affected tissue dies. CAUSES: "Being bedridden or in a wheelchair "Fragile skin "Having a chronic condition, such as diabetes or vascular disease "Inability to move certain parts of your body without assistance "Older age "Incontinence of urine or stool SYMPTOMS: "A reddened area that DOES NOT turn white when pressed on - this can be the beginning of a pressure ulcer "A blister, deep sore or a crater - these can be advanced pressure ulcers FIRST AID: "Relieve the pressure on this area "Keep the area clean and dry "Call your primary doctor if you see any of the above symptoms "DO NOT massage the area "DO NOT use a donut shaped or ring shaped pillow- these actually interfere with the blood flow and cause complications PREVENTION: "Check for pressure ulcers everyday "Change position at least every two hours to relieve pressure "Use items that help relieve pressure- pillows, sheepskin, foam padding, and powders. "Keep skin clean and dry "Eat healthy well balanced meals "Exercise daily IF YOU SEE ANY OF THESE SYMPTOMS WHILE IN THE HOSPITAL - TELL YOUR NURSE IMMEDIATELY. IF YOU SEE ANY OF THESE SYMPTOMS WHILE AT HOME OR HAVE ANY QUESTIONS OR CONCERNS ABOUT PRESSURE ULCERS - CALL YOUR PRIMARY DOCTOR IMMEDIATELY. Addendum: 01/15/22 at 1537 by Nora Marshall LVN Amended: Links added.
--- NOTE | 2022-01-15 17:30 | NUR ---
Student documentation: I have reviewed and agree with all assessments performed and documented by GORGE EARLY .
--- NOTE | 2022-01-15 18:30 | NUR ---
Patient in room PCU 3025. I have received report from Maria R OMALLEY and had the opportunity to ask questions and assume patient care.
--- NOTE | 2022-01-15 18:40 | NUR ---
Patient in room PCU 3025. I have received report from Maria R OMALLEY and patient care nursing assistant Imelda and had the opportunity to ask questions and assume patient care.
--- NOTE | 2022-01-15 18:45 | NUR ---
Problems reprioritized. Patient report given, questions answered & plan of care reviewed with LYSSA ORDAZ.
[2022-01-15] MEDS: gabapentin 300mg capsule PO SCH (22:05)
[2022-01-15] MEDS: duloxetine 30mg CAPSULE.DR PO SCH (22:05)
[2022-01-15] MEDS: insulin glargine (Lantus) pen - multi-dose SQ SCH (22:14)
[2022-01-16] MEDS: heparin, porcine 5000 units/ml vial SQ SCH ×2 (00:49→08:54)
[2022-01-16 02:00] VITALS: BP 144/59
[2022-01-16] MEDS: meropenem inj 500 MG in normal saline 100ml IV soln 100 ML IV SCH ×2 (02:21→08:51)
[2022-01-16 06:00] VITALS: BP 139/57
--- NOTE | 2022-01-16 06:38 | NUR ---
Patient in room PCU 3025B. I have received report from LYSSA ORDAZ and had the opportunity to ask questions and assume patient care.
[2022-01-16 06:40] LABS: BASOPHILS % (AUTO) 0.6 % (0-1); EOSINOPHILS # (AUTO) 0.3 X10'3 (0-0.9); EOSINOPHILS % (AUTO) 6.3 % (0-6); HEMATOCRIT 30.2 % (35.0-45.0); HEMOGLOBIN 10.1 g/dl (12.0-16.0); LYMPHOCYTES # (AUTO) 1.3 X10'3 (1.1-4.8); LYMPHOCYTES % (AUTO) 23.4 % (21-51); MEAN CORPUSCULAR HEMOGLOBIN 31.3 PG (27.0-31.0); MEAN CORPUSCULAR HGB CONC 33.5 g/dL (33.0-36.5); MEAN CORPUSCULAR VOLUME 93.5 FL (78-98); MEAN PLATELET VOLUME 8.3 FL (7.4-10.4); MONOCYTES # (AUTO) 0.6 X10'3 (0-0.9); MONOCYTES % (AUTO) 10.5 % (2-12); NEUTROPHILS # (AUTO) 3.2 X10'3 (1.8-7.7); NEUTROPHILS % (AUTO) 59.2 % (42-75); PLATELET COUNT 243 X10'3 (140-440); RED BLOOD COUNT 3.23 X10'6 (4.20-5.60); RED CELL DISTRIBUTION WIDTH 15.9 % (11.5-14.5); WHITE BLOOD COUNT 5.5 X10'3 (4.5-11.0)
--- NOTE | 2022-01-16 06:50 | NUR ---
Problems reprioritized. Patient report given, questions answered & plan of care reviewed with Maria R Porter.
[2022-01-16 07:07] LABS: ALANINE AMINOTRANSFERASE 33 U/L (12-78); ALBUMIN 2.7 G/DL (3.4-5.0); ALBUMIN/GLOBULIN RATIO 0.7 (1.1-1.5); ALKALINE PHOSPHATASE 85 IU/L (46-116); ANION GAP 9 (8-16); ASPARTATE AMINO TRANSFERASE 28 U/L (10-37); BILIRUBIN,TOTAL 0.3 MG/DL (0.1-1.0); BLOOD UREA NITROGEN 23 MG/DL (7-18); BUN/CREATININE RATIO 14.6 (6.6-38.0); CHLORIDE 108 MMOL/L (99-107); CREATININE 1.58 MG/DL (0.40-0.90); GLUCOSE 191 MG/DL (70-104); POTASSIUM 4.6 MMOL/L (3.5-5.1); SODIUM 138 MMOL/L (135-145); TOTAL CARBON DIOXIDE 20.7 MMOL/L (24-32); TOTAL PROTEIN 6.7 G/DL (6.4-8.2); eGFR 32 ML/MIN
[2022-01-16] MEDS: normal saline 1000ml 1,000 ML IV SCH (07:50)
[2022-01-16] MEDS: docusate sod 100mg capsule PO SCH (08:00)
[2022-01-16] MEDS: insulin Lispro (HumaLOG) vial - multi-dose SQ SCH (08:48)
[2022-01-16] MEDS: lisinopril 20mg tablet PO SCH (08:55)
[2022-01-16] MEDS: HYDROchlorothiazide 25mg tablet PO SCH (08:55)
[2022-01-16] MEDS: pantoprazole 40mg Tablet.DR PO SCH (08:56)
[2022-01-16] MEDS: atorvastatin 10mg tablet PO SCH (08:56)
[2022-01-16] MEDS: mesalamine 1.2gm ER tablet PO SCH (08:56)
[2022-01-16] MEDS: folic acid 1mg tablet PO SCH (08:56)
[2022-01-16 10:00] VITALS: BP 135/68
--- NOTE | 2022-01-16 17:13 | NUR ---
PATIENT STABLE AND APPROPRIATE FOR DISCHARGE, IV REMOVED, EDUCATION GIVEN, MIDLINE PLACED, ALL BELONGINGS SENT WITH PATIENT, PATIENT TAKEN TO LOBBY BY WHEELCHAIR TO AN AWAITING CAR WHERE PATIENT WILL TAKE SELF HOME HOME
== END 2022-01-16 12:20 | disposition home or self-care (01) | DRG 603 ==
LOC: ER 14:44 → ED HOLD 23:53 → PCU 3S 01-13 02:35
PROVIDERS: ADMIT Family Medicine; ATTEND Internal Medicine
DX: L03.031 Cellulitis of right toe (principal); I13.0 Hypertensive heart and chronic kidney disease with heart failure and stage 1 through stage 4 chronic kidney disease, or unspecified chronic kidney disease; I50.32 Chronic diastolic (congestive) heart failure; N17.9 Acute kidney failure, unspecified; Z16.24 Resistance to multiple antibiotics; Z68.41 Body mass index [BMI] 40.0-44.9, adult; E87.20 Acidosis, unspecified; L02.611 Cutaneous abscess of right foot; B96.1 Klebsiella pneumoniae [K. pneumoniae] as the cause of diseases classified elsewhere; D64.9 Anemia, unspecified; E11.22 Type 2 diabetes mellitus with diabetic chronic kidney disease; E11.40 Type 2 diabetes mellitus with diabetic neuropathy, unspecified; N18.30 Chronic kidney disease, stage 3 unspecified; E11.51 Type 2 diabetes mellitus with diabetic peripheral angiopathy without gangrene; M54.50 Low back pain, unspecified; E11.621 Type 2 diabetes mellitus with foot ulcer; L84 Corns and callosities; E11.65 Type 2 diabetes mellitus with hyperglycemia; M25.474 Effusion, right foot; E66.01 Morbid (severe) obesity due to excess calories; E78.5 Hyperlipidemia, unspecified; G89.4 Chronic pain syndrome; K21.9 Gastro-esophageal reflux disease without esophagitis; L97.519 Non-pressure chronic ulcer of other part of right foot with unspecified severity; Z79.84 Long term (current) use of oral hypoglycemic drugs; Z79.899 Other long term (current) drug therapy; Z89.412 Acquired absence of left great toe
CPT/HCPCS: 36410; 36415; 73620; 73718; 76942; 80053; 82948; 83036; 83605; 83735; 83880; 84100; 84145; 85025; 85610; 85651; 85730; 86140; 87040; 87081; 93922; 94760; 99285; A4649; A6446; A6449; C1751; G0378; J1644; J1815; J2185; J3490; J7030

== ENCOUNTER 2022-01-29 11:22 | Inpatient (IN) | payer BC, MEDICARE ==
[~2022-01-29] VITALS: Ht 157.5 cm; Wt 92.4 kg
[~2022-01-29 11:22] MED LIST changes: +ALBU8.5H17 PO; -AMOX-318 PO; -BENA1TAB14 PO; +BENA1TAB19 PO; -DOXY-1 PO; -FOLI0.4T14 PO; +FOLI1TAB27 PO; -GLIP5TAB13 PO; -HYDR-3964 PO; -HYDR25TA5 PO; -LINE600T14 PO; -LISI40TA13 PO; -MERC50TA16 PO; +MESA1.2T3 PO; -METF-900 PO; -OMEP20CA16 PO; +PANT40TA54 PO; -SITA100T11 PO; +SITA50TA7 PO
--- NOTE | 2022-01-29 11:30 | NUR ---
verbal order from dr chun to put the order for versed and fentnyl drip and restrain orders.will follow the orders.
[2022-01-29] MEDS ORDERED: FENTANYL-0.9 % NACL/PF 100 ML IV PRN ×2 (11:35→11:37)
[2022-01-29] MEDS ORDERED: midazolam 100mg in NS 100ml 100 ML IV PRN ×2 (11:35→11:38)
[2022-01-29 11:42] LABS: ABG BASE EXCESS -11.3 mmol/L (-2.0-2.0); ABG HCO3 15.1 mmol/L (22.0-26.0); ABG OXYGEN SATURATION 99.5 % (94-97); ABG PCO2 (T) 33.2 mmHg (32.0-45.0); ABG PO2 (T) 428.6 mmHg (75.0-100.0); ALLEN'S TEST POSITIVE; FCOHb 0.3 % (0.0-3.9); FMetHb 0.4 % (0.0-1.5); FO2Hb 98.8 % (94-97); PATIENT TEMPERATURE 35.5; PEEP 5 cm H2O; RESPIRATORY RATE 16 b/min; TIDAL VOLUME 400 mL; TOTAL HEMOGLOBIN 12.8 G/dl (12.0-16.0)
[2022-01-29 11:48] VITALS: BP 145/50
[2022-01-29 12:04] LABS: BASOPHILS # (AUTO) 0.1 X10'3 (0-0.2); BASOPHILS % (AUTO) 0.3 % (0-1); EOSINOPHILS % (AUTO) 0 % (0-6); HEMATOCRIT 39.1 % (35.0-45.0); HEMOGLOBIN 12.6 g/dl (12.0-16.0); LYMPHOCYTES # (AUTO) 0.6 X10'3 (1.1-4.8); LYMPHOCYTES % (AUTO) 2.1 % (21-51); MEAN CORPUSCULAR HEMOGLOBIN 30.3 PG (27.0-31.0); MEAN CORPUSCULAR HGB CONC 32.3 g/dL (33.0-36.5); MEAN CORPUSCULAR VOLUME 93.7 FL (78-98); MEAN PLATELET VOLUME 9.3 FL (7.4-10.4); MONOCYTES # (AUTO) 1.5 X10'3 (0-0.9); MONOCYTES % (AUTO) 4.7 % (2-12); NEUTROPHILS # (AUTO) 29.1 X10'3 (1.8-7.7); NEUTROPHILS % (AUTO) 92.9 % (42-75); PLATELET COUNT 339 X10'3 (140-440); RED BLOOD COUNT 4.17 X10'6 (4.20-5.60); RED CELL DISTRIBUTION WIDTH 15.9 % (11.5-14.5)
[2022-01-29 12:06] LABS: WHITE BLOOD COUNT 31.3 X10'3 (4.5-11.0)
[2022-01-29 12:10] LABS: CLARITY,URINE CLOUDY (Clear); COLOR,URINE YELLOW (Yellow); GLUCOSE, URINE NEGATIVE (Neg); KETONES,URINE 15 mg/dl (Neg); LEUKOCYTE ESTERASE ,URINE NEGATIVE (Neg); NITRITES, URINE NEGATIVE (Neg); OCCULT BLOOD,URINE LARGE (Neg); PROTEIN,URINE 100 mg/dl (Neg); UROBILINOGEN,URINE 0.2 E.U/dL (0.2-1.0)
[2022-01-29 12:12] LABS: UA COLLECTION TYPE FOLEY CATH
[2022-01-29] MEDS ORDERED: vancomycin/NS 1 GM ADD-VANTAGE 250 ML IV ONE (12:15)
[2022-01-29] MEDS ORDERED: piperacillin/tazo 3.375gm/50ml 50 ML IV ONE (12:15)
[2022-01-29 12:18] LABS: URINE AMPHETAMINE SCREEN NEGATIVE (Neg); URINE BARBITUATE SCREEN NEGATIVE (Neg); URINE BENZODIAZEPINES SCREEN NEGATIVE (Neg); URINE CANNABINOID SCREEN NEGATIVE (Neg); URINE COCAINE SCREEN NEGATIVE (Neg); URINE METHADONE SCREEN NEGATIVE (Neg); URINE OPIATE SCREEN NEGATIVE (Neg); URINE PHENCYCLIDINE SCREEN NEGATIVE (Neg)
[2022-01-29] MEDS ORDERED: normal saline 1000ML IV soln IV ONE (12:21)
[2022-01-29] MEDS ORDERED: CefTRIAXone 2gm/D5W 50ml BAG 50 ML IV ONE (12:30)
[2022-01-29 12:31] LABS: SQUAMOUS EPITHELIAL CELL,UR MODERATE /LPF (FEW)
[2022-01-29 12:32] LABS: COARSE GRANULAR CAST 0-3 /LPF (NEGATIVE); FINE GRANULAR CAST 0-3 /LPF (NEGATIVE); TRANSITIONAL EPI CELLS,URINE FEW /HPF
[2022-01-29 12:33] LABS: RBC,URINE 0-2 /HPF (0-2); WBC,URINE 0-4 /HPF (0-4)
[2022-01-29 12:34] LABS: AMORPHOUS PHOSPHATES 2+; BACTERIA,URINE 1+ /HPF (Neg)
[2022-01-29 12:37] LABS: PLATELET ESTIMATE NORMAL; TOTAL CELLS COUNTED 100
[2022-01-29] MEDS ORDERED: GLU850T PO (12:37)
[2022-01-29] MEDS ORDERED: GLIP2.5T3 PO (12:37)
[2022-01-29] MEDS ORDERED: MERC50TA16 PO (12:37)
[2022-01-29] MEDS ORDERED: GABA300C PO (12:42)
[2022-01-29] MEDS ORDERED: GLIP5TAB26 PO (12:47)
[2022-01-29] MEDS ORDERED: METF-1203 PO (12:47)
[2022-01-29 13:18] LABS: ALANINE AMINOTRANSFERASE 95 U/L (12-78); ALBUMIN 3.6 G/DL (3.4-5.0); ALBUMIN/GLOBULIN RATIO 0.7 (1.1-1.5); ALKALINE PHOSPHATASE 97 IU/L (46-116); ANION GAP 19 (8-16); ASPARTATE AMINO TRANSFERASE 279 U/L (10-37); BILIRUBIN,TOTAL 0.5 MG/DL (0.1-1.0); BLOOD UREA NITROGEN 84 MG/DL (7-18); BUN/CREATININE RATIO 21.8 (6.6-38.0); CALCIUM 9.9 MG/DL (8.5-10.1); CHLORIDE 100 MMOL/L (99-107); CREATININE 3.85 MG/DL (0.40-0.90); ETHANOL < 0.010 GM/DL (0.0-0.010); GLUCOSE 264 MG/DL (70-104); LIPASE 626 U/L (73-393); MAGNESIUM 3.1 MG/DL (1.5-2.4); SODIUM 135 MMOL/L (135-145); TOTAL CARBON DIOXIDE 16.1 MMOL/L (24-32); TOTAL PROTEIN 8.5 G/DL (6.4-8.2); eGFR 11 ML/MIN
[2022-01-29 13:22] LABS: POTASSIUM 4.9 MMOL/L (3.5-5.1)
[2022-01-29 13:39] VITALS: BP 138/51
[2022-01-29] MEDS ORDERED: POTASSIUM BICARB 20meq eff tab 20 MEQ TABLET.EFF PO PRN (14:15)
[2022-01-29] MEDS ORDERED: WATER IV SCH (14:15)
[2022-01-29] MEDS ORDERED: acetaminophen 325mg tablet PO PRN (14:15)
[2022-01-29] MEDS ORDERED: LIDOcaine 2% 10ml TOPICAL JELLY (Urojet) TP ONE (14:15)
[2022-01-29] MEDS ORDERED: magnesium hydroxide 30ml (MOM) UD suspension PO PRN (14:15)
[2022-01-29] MEDS ORDERED: DEXTROSE 5% IV SCH (14:15)
[2022-01-29] MEDS ORDERED: SODIUM BICARBONATE IV SCH (14:15)
[2022-01-29] MEDS ORDERED: ondansetron/PF 4mg/2ml inj IV PRN (14:15)
--- NOTE | 2022-01-29 14:39 | NUR ---
pt has an witness episode of seizure lasted for 45 sec ,versed bolus was given ,notified dr chun ,made him aware .verbal orders to give keppra 1gm iv once.will follow the orders.
[2022-01-29 14:57] LABS: CREATINE KINASE 12884 U/L (26-192)
[2022-01-29] MEDS ORDERED: CefTRIAXone 2gm/D5W 50ml BAG 50 ML IV SCH ×2 (15:12→16:07)
[2022-01-29] MEDS: levetiracetam inj 1,000 MG in normal saline 100ml IV soln 100 ML IV SCH ×2 (15:15→22:12)
[2022-01-29] MEDS ORDERED: sodium bicarbonate (8.4%) 1 mEq/ml syringe IV ONE (15:15)
[2022-01-29] MEDS ORDERED: VANCOMYCIN 750MG IV in NS 250 ML IV ONE (15:20)
[2022-01-29] MEDS ORDERED: vancomycin/NS 1 GM ADD-VANTAGE 250 ML IV PRN (15:25)
--- NOTE | 2022-01-29 15:35 | NUR ---
Dr harper at the bedside talking to the pt and giving verbal order to stop the versed and fentnyl drip ,informed that pt sedation were started by dr chun verbal order post intubation ,also informed that pt had witness seizure activity and bolus dose of sedation medication were admin as per md stop the versed and fentnyl and start with propofol drip .
--- NOTE | 2022-01-29 15:50 | NUR ---
ir team at bedside ,given bolus dose of bicarb and started the propofol drip and given bolus dose as pt was trying to wake up .
[2022-01-29] MEDS: propofol 1000mg/100ml bottle 100 ML IV SCH (15:59)
[2022-01-29] MEDS ORDERED: midazolam 1 mg/ML 2ml injection ONE (16:20)
[2022-01-29] MEDS: sodium bicarbonate (8.4%) inj. 150 MEQ in dextrose 5%-water 1,000 ML IV SCH ×2 (16:49→22:09)
[2022-01-29] MEDS: ampicillin inj 1 GM in normal saline 100ml IV soln 100 ML IV SCH ×2 (16:54→22:12)
[2022-01-29] MEDS: heparin, porcine 5000 units/ml vial SQ SCH (16:54)
[2022-01-29] MEDS: normal saline 1000ml 1,000 ML IV SCH (16:59)
--- NOTE | 2022-01-29 17:42 | NUR ---
PT PLACED ON DROPLET PRECAUTIONS PENDING LAB RESULTS.
--- NOTE | 2022-01-29 17:58 | NUR ---
HEAVEN KACEY, DAUGHTER, MIGDALIA GREGG, DAUGHTER,
[2022-01-29 18:11] LABS: APPEARANCE,CSF CLEAR; CSF SUPERNATANT COLOR COLORLESS; CSF VOLUME 10 ML; TUBE# COUNTED 1
[2022-01-29 18:12] LABS: LYMPHOCYTES,CSF 12 % (40-80); MONOCYTES,CSF 10 % (15-45); NEUTRO,CSF 78 % (0-6)
[2022-01-29 18:13] LABS: APPEARANCE,CSF CLEAR; CSF SUPERNATANT COLOR COLORLESS; CSF VOLUME 10 ML; LYMPHOCYTES,CSF 2 % (40-80); MONOCYTES,CSF 7 % (15-45); NEUTRO,CSF 91 % (0-6); TUBE# COUNTED 4
[2022-01-29] MEDS ORDERED: normal saline 1000ML IV soln IVB ONE (18:45)
--- NOTE | 2022-01-29 18:45 | NUR ---
notified the family member at bedside that no abx needed at this time per dr chun orders.will call you if anything changes.
[2022-01-29 19:08] VITALS: BP 154/66
[2022-01-29] MEDS ORDERED: ampicillin inj 2 GM in normal saline 100ml IV soln 100 ML IV SCH (20:00)
[2022-01-29 20:54] VITALS: BP 146/59
[2022-01-29 22:20] VITALS: BP 145/60
[2022-01-30] VITALS (30 sets, daily range): BP systolic 109–149; BP diastolic 34–62
[2022-01-30] MEDS: sodium bicarbonate (8.4%) inj. 150 MEQ in dextrose 5%-water 1,000 ML IV SCH ×3 (00:21→07:57)
[2022-01-30] MEDS: ampicillin inj 1 GM in normal saline 100ml IV soln 100 ML IV SCH ×4 (00:23→13:50)
--- NOTE | 2022-01-30 00:30 | NUR ---
Patient in room CICU 2013. I have received report from Briana OMALLEY and had the opportunity to ask questions and assume patient care. Patient transferred to hospital bed with board and tolerated well. Skin assessment performed. Patient now laying in bed sedated with propofol. Will continue to monitor patient.
[2022-01-30] MEDS: CefTRIAXone 2gm/D5W 50ml BAG 50 ML IV SCH ×2 (01:59→13:07)
[2022-01-30] MEDS: heparin, porcine 5000 units/ml vial SQ SCH ×3 (02:00→15:56)
[2022-01-30] MEDS ORDERED: glucagon, human recombinant 1mg kit SUBCUT PRN (02:45)
[2022-01-30] MEDS ORDERED: dextrose 50%-water 50ml dispensing syringe IV PRN ×2 (02:45)
[2022-01-30] MEDS ORDERED: DEXTROSE 15 GM of carb/4 tabs (each vial/BOTTLE has 4 tablets) PO PRN ×2 (02:45)
[2022-01-30] MEDS: VANCOMYCIN LEVEL IV SCH (02:48)
[2022-01-30] MEDS: insulin Lispro (HumaLOG) vial - multi-dose SQ SCH ×4 (03:23→21:10)
[2022-01-30 03:24] LABS: ABG BASE EXCESS 4.1 mmol/L (-2.0-2.0); ABG OXYGEN SATURATION 98.4 % (94-97); ABG PO2 (T) 127.2 mmHg (75.0-100.0); ALLEN'S TEST POSITIVE; FCOHb 0.2 % (0.0-3.9); FMetHb 0.2 % (0.0-1.5); PATIENT TEMPERATURE 37.1; PEEP 5 cm H2O; RESPIRATORY RATE 12 b/min; TIDAL VOLUME 400 mL; TOTAL HEMOGLOBIN 9.6 G/dl (12.0-16.0)
[2022-01-30 03:32] LABS: CSF RBC 287 /CU MM (0); CSF WBC CT 59 /CU MM (0-5)
[2022-01-30 03:34] LABS: CSF RBC 437 /CU MM (0); CSF WBC CT 52 /CU MM (0-5)
[2022-01-30] MEDS: normal saline 1000ml 1,000 ML IV SCH ×2 (03:35→17:11)
[2022-01-30] MEDS: propofol 1000mg/100ml bottle 100 ML IV SCH (04:14)
--- NOTE | 2022-01-30 06:22 | NUR ---
Problems reprioritized. Patient report given, questions answered & plan of care reviewed with Lillian OMALLEY.
[2022-01-30 06:40] LABS: BASOPHILS % (AUTO) 0.2 % (0-1); EOSINOPHILS % (AUTO) 0 % (0-6); HEMATOCRIT 30.5 % (35.0-45.0); HEMOGLOBIN 10.2 g/dl (12.0-16.0); LYMPHOCYTES # (AUTO) 0.7 X10'3 (1.1-4.8); LYMPHOCYTES % (AUTO) 3.9 % (21-51); MEAN CORPUSCULAR HEMOGLOBIN 30.8 PG (27.0-31.0); MEAN CORPUSCULAR HGB CONC 33.6 g/dL (33.0-36.5); MEAN CORPUSCULAR VOLUME 91.7 FL (78-98); MEAN PLATELET VOLUME 9.2 FL (7.4-10.4); MONOCYTES # (AUTO) 1.4 X10'3 (0-0.9); MONOCYTES % (AUTO) 8.1 % (2-12); NEUTROPHILS # (AUTO) 14.8 X10'3 (1.8-7.7); NEUTROPHILS % (AUTO) 87.8 % (42-75); PLATELET COUNT 260 X10'3 (140-440); RED BLOOD COUNT 3.33 X10'6 (4.20-5.60); RED CELL DISTRIBUTION WIDTH 16.1 % (11.5-14.5); WHITE BLOOD COUNT 16.9 X10'3 (4.5-11.0)
[2022-01-30 06:44] LABS: APTT 25 SECONDS (22-32)
[2022-01-30 07:11] LABS: ALANINE AMINOTRANSFERASE 79 U/L (12-78); ALBUMIN 2.6 G/DL (3.4-5.0); ALBUMIN/GLOBULIN RATIO 0.6 (1.1-1.5); ALKALINE PHOSPHATASE 75 IU/L (46-116); ANION GAP 14 (8-16); ASPARTATE AMINO TRANSFERASE 185 U/L (10-37); BILIRUBIN,TOTAL 0.3 MG/DL (0.1-1.0); BLOOD UREA NITROGEN 67 MG/DL (7-18); BUN/CREATININE RATIO 23.3 (6.6-38.0); CALCIUM 8.7 MG/DL (8.5-10.1); CHLORIDE 103 MMOL/L (99-107); CREATININE 2.87 MG/DL (0.40-0.90); GLUCOSE 295 MG/DL (70-104); MAGNESIUM 2.6 MG/DL (1.5-2.4); PHOSPHORUS 3.6 MG/DL (2.3-4.5); POTASSIUM 3.2 MMOL/L (3.5-5.1); SODIUM 143 MMOL/L (135-145); TOTAL CARBON DIOXIDE 25.7 MMOL/L (24-32); TOTAL PROTEIN 6.9 G/DL (6.4-8.2); VANCOMYCIN,RANDOM 16.9 UG/ML; eGFR 16 ML/MIN
[2022-01-30] MEDS: levetiracetam inj 1,000 MG in normal saline 100ml IV soln 100 ML IV SCH ×2 (07:29→20:12)
[2022-01-30] MEDS: K and/or MAG REPLACEMENT MC SCH (07:32)
[2022-01-30] MEDS: POTASSIUM BICARB 20meq eff tab 20 MEQ TABLET.EFF PO PRN ×2 (07:57→12:12)
[2022-01-30 10:42] LABS: GLUCOSE,CSF 178 MG/DL (40-75); TOTAL PROTEIN,CSF 44 MG/DL (30-60)
--- NOTE | 2022-01-30 11:50 | NUR ---
Nutrition/Prem Consults: Pt intubated admit DX sepsis, ORTEGA on CKD, metabolic acidosis, transaminitis, DM, new onset seizure, and ALOC possible meningitis per furnace loader at rounds. Plan of possibly extubating today if pt appropriate per furnace loader at rounds. OG in place w/ MAP 62 during rounds; EN recs below in case prolonged intubation. Pt hx T2DM A1C 10.5% recent 01/13/[address] written/verbal ed at that time. Prem 12 w/ L foot sores otherwise skin intact per EMR. Propofol running at 7.2ml/hr per RN at rounds providing additional 190 kcals/day. LBM 01/30 per EMR. Will continue to monitor. Rec: 1. IF TF; Vital HP at 55ml/hr goal 2. IF TF; additional water flush per MD; initial serum Na 135mmol/L s/p NS 3. routine bowel care 4. daily scaled wts 5. upon extubation; advance diet as medically indicated to carb controlled; consider MONITORING ANALYST BSS Addendum: 01/30/22 at [address] Amended: Links added.
[2022-01-30] MEDS: mesalamine 1.2gm ER tablet PO SCH (12:04)
--- NOTE | 2022-01-30 14:24 | NUR ---
Wound care here to see pt. .
--- NOTE | 2022-01-30 15:27 | NUR ---
DIABETIC FOOT CARE EDUCATION PROVIDED BY WOUND CARE * Wash your feet daily with lukewarm water and soap. * Dry your feet well, especially between the toes. * Keep the skin moisturized with lotion, but do not apply it between the toes. * Check your feet for blisters, cuts or sores. * Use an emery board to shape your toenails even with the ends of your toes. * Change daily into clean, soft socks or stockings, not too big or too small. * Keep your feet warm and dry. * Preferably wear special padded socks and shoes that fit well. * Never walk barefoot indoors or outdoors. * Examine your shoes everyday for cracks, wei, nails or anything that could hurt your feet. * Tell your doctor if you find any of these problems or have any concerns after examining your feet. Addendum: 01/30/22 at 1528 by Kaye Hook RN Amended: Links added.
--- NOTE | 2022-01-30 15:27 | NUR ---
PRESSURE ULCER EDUCATION: DEFINITION: A pressure ulcer is an area of skin that breaks down when you stay in one position too long. The constant pressure against the skin reduces the blood flow to that area and the affected tissue dies. CAUSES: "Being bedridden or in a wheelchair "Fragile skin "Having a chronic condition, such as diabetes or vascular disease "Inability to move certain parts of your body without assistance "Older age "Incontinence of urine or stool SYMPTOMS: "A reddened area that DOES NOT turn white when pressed on - this can be the beginning of a pressure ulcer "A blister, deep sore or a crater - these can be advanced pressure ulcers FIRST AID: "Relieve the pressure on this area "Keep the area clean and dry "Call your primary doctor if you see any of the above symptoms "DO NOT massage the area "DO NOT use a donut shaped or ring shaped pillow- these actually interfere with the blood flow and cause complications PREVENTION: "Check for pressure ulcers everyday "Change position at least every two hours to relieve pressure "Use items that help relieve pressure- pillows, sheepskin, foam padding, and powders. "Keep skin clean and dry "Eat healthy well balanced meals "Exercise daily IF YOU SEE ANY OF THESE SYMPTOMS WHILE IN THE HOSPITAL - TELL YOUR NURSE IMMEDIATELY. IF YOU SEE ANY OF THESE SYMPTOMS WHILE AT HOME OR HAVE ANY QUESTIONS OR CONCERNS ABOUT PRESSURE ULCERS - CALL YOUR PRIMARY DOCTOR IMMEDIATELY. Addendum: 01/30/22 at 1528 by Kaye Hook RN Amended: Links added.
[2022-01-30] MEDS: duloxetine 30mg CAPSULE.DR PO SCH (20:12)
[2022-01-30] MEDS: gabapentin 300mg capsule PO SCH (20:12)
[2022-01-30] MEDS: insulin glargine (Lantus) pen - multi-dose SQ SCH (21:09)
[2022-01-31] VITALS (23 sets, daily range): BP systolic 91–138; BP diastolic 36–63
[2022-01-31] MEDS: heparin, porcine 5000 units/ml vial SQ SCH ×3 (01:02→17:30)
[2022-01-31] MEDS: CefTRIAXone 2gm/D5W 50ml BAG 50 ML IV SCH ×2 (01:03→12:32)
[2022-01-31] MEDS: VANCOMYCIN LEVEL IV SCH (03:00)
--- NOTE | 2022-01-31 05:30 | NUR ---
Pt is calm and cooperative. Oriented to self. Not oriented to time or place. Sometimes cannot state birthday. No changes in LOC throughout shift. Pt denies pain or discomfort.
[2022-01-31 06:26] LABS: APTT 23 SECONDS (22-32)
[2022-01-31 06:40] LABS: ALANINE AMINOTRANSFERASE 62 U/L (12-78); ALBUMIN 2.3 G/DL (3.4-5.0); ALBUMIN/GLOBULIN RATIO 0.6 (1.1-1.5); ALKALINE PHOSPHATASE 64 IU/L (46-116); ANION GAP 9 (8-16); ASPARTATE AMINO TRANSFERASE 120 U/L (10-37); BILIRUBIN,TOTAL 0.3 MG/DL (0.1-1.0); BLOOD UREA NITROGEN 40 MG/DL (7-18); BUN/CREATININE RATIO 21.9 (6.6-38.0); CALCIUM 8.6 MG/DL (8.5-10.1); CHLORIDE 107 MMOL/L (99-107); CREATININE 1.83 MG/DL (0.40-0.90); GLUCOSE 215 MG/DL (70-104); MAGNESIUM 2.5 MG/DL (1.5-2.4); PHOSPHORUS 2.6 MG/DL (2.3-4.5); POTASSIUM 3.7 MMOL/L (3.5-5.1); SODIUM 146 MMOL/L (135-145); TOTAL CARBON DIOXIDE 30.5 MMOL/L (24-32); TOTAL PROTEIN 6.1 G/DL (6.4-8.2); VANCOMYCIN,RANDOM 8.2 UG/ML; eGFR 27 ML/MIN
[2022-01-31 06:52] LABS: BASOPHILS % (AUTO) 0.2 % (0-1); EOSINOPHILS % (AUTO) 0.1 % (0-6); HEMATOCRIT 27.5 % (35.0-45.0); HEMOGLOBIN 9.2 g/dl (12.0-16.0); LYMPHOCYTES % (AUTO) 8.7 % (21-51); MEAN CORPUSCULAR HEMOGLOBIN 30.9 PG (27.0-31.0); MEAN CORPUSCULAR HGB CONC 33.3 g/dL (33.0-36.5); MEAN CORPUSCULAR VOLUME 92.9 FL (78-98); MEAN PLATELET VOLUME 9.2 FL (7.4-10.4); MONOCYTES # (AUTO) 0.9 X10'3 (0-0.9); MONOCYTES % (AUTO) 7.9 % (2-12); NEUTROPHILS # (AUTO) 9.1 X10'3 (1.8-7.7); NEUTROPHILS % (AUTO) 83.1 % (42-75); PLATELET COUNT 211 X10'3 (140-440); RED BLOOD COUNT 2.96 X10'6 (4.20-5.60); RED CELL DISTRIBUTION WIDTH 16.3 % (11.5-14.5); WHITE BLOOD COUNT 10.9 X10'3 (4.5-11.0)
[2022-01-31] MEDS: K and/or MAG REPLACEMENT MC SCH (08:00)
[2022-01-31] MEDS ORDERED: vancomycin/NS 1 GM ADD-VANTAGE 250 ML IV ONE (08:15)
[2022-01-31] MEDS: levetiracetam inj 1,000 MG in normal saline 100ml IV soln 100 ML IV SCH ×2 (09:07→21:22)
[2022-01-31] MEDS: gabapentin 300mg capsule PO SCH ×2 (09:08→21:24)
[2022-01-31] MEDS: normal saline 1000ml 1,000 ML IV SCH ×2 (09:08→21:39)
[2022-01-31] MEDS: folic acid 1mg tablet PO SCH (09:08)
[2022-01-31] MEDS: mesalamine 1.2gm ER tablet PO SCH (09:08)
[2022-01-31] MEDS: propofol 1000mg/100ml bottle 100 ML IV SCH (09:20)
[2022-01-31] MEDS: insulin Lispro (HumaLOG) vial - multi-dose SQ SCH ×2 (10:25→14:20)
[2022-01-31] MEDS: duloxetine 30mg CAPSULE.DR PO SCH (21:22)
[2022-01-31] MEDS: insulin glargine (Lantus) pen - multi-dose SQ SCH (21:39)
--- NOTE | 2022-01-31 23:00 | NUR ---
Patient in room MT 340. I have received report from Mac RN and had the opportunity to ask questions and assume patient care.
[2022-02-01] MEDS: CefTRIAXone 2gm/D5W 50ml BAG 50 ML IV SCH ×2 (00:07→12:58)
[2022-02-01] MEDS: heparin, porcine 5000 units/ml vial SQ SCH ×3 (00:14→16:36)
[2022-02-01] MEDS: VANCOMYCIN LEVEL IV SCH (03:00)
[2022-02-01 06:00] VITALS: BP 165/62
[2022-02-01 06:10] LABS: BASOPHILS % (AUTO) 0.3 % (0-1); EOSINOPHILS # (AUTO) 0.1 X10'3 (0-0.9); EOSINOPHILS % (AUTO) 0.6 % (0-6); HEMATOCRIT 26.1 % (35.0-45.0); HEMOGLOBIN 8.6 g/dl (12.0-16.0); LYMPHOCYTES % (AUTO) 12.1 % (21-51); MEAN CORPUSCULAR HEMOGLOBIN 31.3 PG (27.0-31.0); MEAN CORPUSCULAR HGB CONC 32.9 g/dL (33.0-36.5); MEAN CORPUSCULAR VOLUME 95.1 FL (78-98); MEAN PLATELET VOLUME 9.1 FL (7.4-10.4); MONOCYTES # (AUTO) 0.7 X10'3 (0-0.9); MONOCYTES % (AUTO) 8.8 % (2-12); NEUTROPHILS # (AUTO) 6.6 X10'3 (1.8-7.7); NEUTROPHILS % (AUTO) 78.2 % (42-75); PLATELET COUNT 231 X10'3 (140-440); RED BLOOD COUNT 2.74 X10'6 (4.20-5.60); WHITE BLOOD COUNT 8.4 X10'3 (4.5-11.0)
[2022-02-01 06:27] LABS: APTT 23 SECONDS (22-32)
--- NOTE | 2022-02-01 06:29 | NUR ---
Problems reprioritized. Patient report given, questions answered & plan of care reviewed with Blanca OMALLEY.
[2022-02-01 06:44] LABS: ALANINE AMINOTRANSFERASE 76 U/L (12-78); ALBUMIN 2.4 G/DL (3.4-5.0); ALBUMIN/GLOBULIN RATIO 0.6 (1.1-1.5); ALKALINE PHOSPHATASE 68 IU/L (46-116); ANION GAP 10 (8-16); ASPARTATE AMINO TRANSFERASE 128 U/L (10-37); BILIRUBIN,TOTAL 0.3 MG/DL (0.1-1.0); BLOOD UREA NITROGEN 33 MG/DL (7-18); BUN/CREATININE RATIO 21.4 (6.6-38.0); CALCIUM 8.9 MG/DL (8.5-10.1); CHLORIDE 108 MMOL/L (99-107); CREATININE 1.54 MG/DL (0.40-0.90); GLUCOSE 177 MG/DL (70-104); MAGNESIUM 2.1 MG/DL (1.5-2.4); PHOSPHORUS 2.4 MG/DL (2.3-4.5); POTASSIUM 3.9 MMOL/L (3.5-5.1); SODIUM 148 MMOL/L (135-145); TOTAL CARBON DIOXIDE 29.8 MMOL/L (24-32); TOTAL PROTEIN 6.5 G/DL (6.4-8.2); VANCOMYCIN,RANDOM 13.7 UG/ML; eGFR 33 ML/MIN
[2022-02-01] MEDS: mesalamine 1.2gm ER tablet PO SCH (07:26)
[2022-02-01] MEDS: gabapentin 300mg capsule PO SCH (07:26)
[2022-02-01] MEDS: folic acid 1mg tablet PO SCH (07:27)
[2022-02-01] MEDS: K and/or MAG REPLACEMENT MC SCH (08:00)
[2022-02-01] MEDS: normal saline 1000ml 1,000 ML IV SCH ×2 (08:55→09:40)
[2022-02-01] MEDS: levetiracetam inj 1,000 MG in normal saline 100ml IV soln 100 ML IV SCH ×2 (09:32→20:41)
[2022-02-01] MEDS: insulin Lispro (HumaLOG) vial - multi-dose SQ SCH (09:37)
[2022-02-01 10:00] VITALS: BP 149/54
[2022-02-01 15:27] LABS: VDRL, CSF Non Reactive (Non Rea:<1:1)
[2022-02-01 18:00] VITALS: BP 148/92
--- NOTE | 2022-02-01 18:38 | NUR ---
Patient in room MT 340. I have received report from DMITRI OMALLEY and had the opportunity to ask questions and assume patient care.
[2022-02-01] MEDS: duloxetine 30mg CAPSULE.DR PO SCH (20:40)
[2022-02-01] MEDS: acetaminophen 325mg tablet PO PRN (20:47)
[2022-02-01 22:00] VITALS: BP 158/69
[2022-02-01] MEDS: insulin glargine (Lantus) pen - multi-dose SQ SCH (22:18)
[2022-02-02] MEDS: heparin, porcine 5000 units/ml vial SQ SCH ×3 (00:31→15:46)
[2022-02-02] MEDS: CefTRIAXone 2gm/D5W 50ml BAG 50 ML IV SCH ×2 (00:31→11:18)
[2022-02-02] MEDS: normal saline 1000ml 1,000 ML IV SCH ×2 (00:31→15:53)
[2022-02-02 06:00] VITALS: BP 119/56
[2022-02-02 06:11] LABS: BASOPHILS % (AUTO) 0.3 % (0-1); EOSINOPHILS # (AUTO) 0.2 X10'3 (0-0.9); EOSINOPHILS % (AUTO) 3.2 % (0-6); HEMATOCRIT 27.1 % (35.0-45.0); HEMOGLOBIN 8.9 g/dl (12.0-16.0); MEAN CORPUSCULAR HEMOGLOBIN 30.8 PG (27.0-31.0); MEAN CORPUSCULAR HGB CONC 32.7 g/dL (33.0-36.5); MEAN PLATELET VOLUME 8.8 FL (7.4-10.4); MONOCYTES # (AUTO) 0.6 X10'3 (0-0.9); MONOCYTES % (AUTO) 8.8 % (2-12); NEUTROPHILS # (AUTO) 5.3 X10'3 (1.8-7.7); NEUTROPHILS % (AUTO) 73.7 % (42-75); PLATELET COUNT 234 X10'3 (140-440); RED BLOOD COUNT 2.88 X10'6 (4.20-5.60); RED CELL DISTRIBUTION WIDTH 15.8 % (11.5-14.5); WHITE BLOOD COUNT 7.2 X10'3 (4.5-11.0)
[2022-02-02 06:16] LABS: APTT 24 SECONDS (22-32)
--- NOTE | 2022-02-02 06:27 | NUR ---
Problems reprioritized. Patient report given, questions answered & plan of care reviewed with LETTY OMALLEY.
[2022-02-02 06:34] LABS: ALANINE AMINOTRANSFERASE 75 U/L (12-78); ALBUMIN 2.4 G/DL (3.4-5.0); ALBUMIN/GLOBULIN RATIO 0.6 (1.1-1.5); ALKALINE PHOSPHATASE 69 IU/L (46-116); ANION GAP 9 (8-16); ASPARTATE AMINO TRANSFERASE 110 U/L (10-37); BILIRUBIN,TOTAL 0.4 MG/DL (0.1-1.0); BLOOD UREA NITROGEN 35 MG/DL (7-18); BUN/CREATININE RATIO 23.3 (6.6-38.0); CALCIUM 8.9 MG/DL (8.5-10.1); CHLORIDE 108 MMOL/L (99-107); GLUCOSE 145 MG/DL (70-104); MAGNESIUM 1.9 MG/DL (1.5-2.4); PHOSPHORUS 2.8 MG/DL (2.3-4.5); POTASSIUM 3.8 MMOL/L (3.5-5.1); SODIUM 145 MMOL/L (135-145); TOTAL CARBON DIOXIDE 27.8 MMOL/L (24-32); TOTAL PROTEIN 6.3 G/DL (6.4-8.2); eGFR 34 ML/MIN
[2022-02-02] MEDS: gabapentin 300mg capsule PO SCH (07:06)
[2022-02-02] MEDS: folic acid 1mg tablet PO SCH (07:07)
[2022-02-02] MEDS: mesalamine 1.2gm ER tablet PO SCH (07:07)
[2022-02-02] MEDS: levetiracetam inj 1,000 MG in normal saline 100ml IV soln 100 ML IV SCH ×2 (07:08→21:22)
[2022-02-02 10:00] VITALS: BP 152/87
[2022-02-02] MEDS: insulin Lispro (HumaLOG) vial - multi-dose SQ SCH ×2 (13:37→19:52)
[2022-02-02] MEDS: acetaminophen 325mg tablet PO PRN (15:50)
--- NOTE | 2022-02-02 16:07 | NUR ---
F/u 02/02: Pt currently DX encephalopathy with evidence of meningitis with CSF pleocytosis, possible L lower lobe PNA, DM, anemia, and CKD 3 per EMR. Initial two days of PO poor s/p extubation 01/30 mostly 0-25% advanced to carb controlled/EC7 diet 01/31 per PLANT UTILITY PERSON/MD. PO much improved today 50-63% breakfast and lunch w/ pt cognition continuing to improve per ID MD note. Given overall poor PO intake RD recommends Glucerna ONS TIDWM; MD notified. LBM 02/01. Will monitor for further PO acceptance and nutrition intervention needs this admit. Rec: 1. Continue carb controlled/EC7 diet per PLANT UTILITY PERSON/MD recs; encourage PO 2. Glucerna TIDWM; pending MD verification in EMR 3. routine bowel care 4. weekly wts Addendum: 02/02/22 at [address] Amended: Links added.
--- NOTE | 2022-02-02 16:18 | NUR ---
pt continues to answer questions appropriately with moments of confusion. pt ambulated to bathroom with FWW stand by assist. pt voids in toilet and has 1 bowel movement today. will continue to monitor patient
[2022-02-02 18:00] VITALS: BP 147/55
--- NOTE | 2022-02-02 18:31 | NUR ---
Patient in room MT 340. I have received report from LETTY OMALLEY and had the opportunity to ask questions and assume patient care.
[2022-02-02] MEDS: duloxetine 30mg CAPSULE.DR PO SCH (21:23)
[2022-02-02] MEDS: insulin glargine (Lantus) pen - multi-dose SQ SCH (21:52)
[2022-02-02 22:00] VITALS: BP 158/59
[2022-02-03] MEDS: heparin, porcine 5000 units/ml vial SQ SCH ×3 (00:51→15:35)
[2022-02-03] MEDS: CefTRIAXone 2gm/D5W 50ml BAG 50 ML IV SCH ×2 (00:51→10:47)
[2022-02-03 06:00] VITALS: BP 154/70
--- NOTE | 2022-02-03 06:25 | NUR ---
Patient in room MT 340. I have received report from LYSSA Michele and had the opportunity to ask questions and assume patient care.
[2022-02-03 06:28] LABS: APTT 24 SECONDS (22-32)
--- NOTE | 2022-02-03 06:29 | NUR ---
Problems reprioritized. Patient report given, questions answered & plan of care reviewed with MAURICIO RN.
[2022-02-03 06:32] LABS: BASOPHILS % (AUTO) 0.3 % (0-1); EOSINOPHILS # (AUTO) 0.4 X10'3 (0-0.9); EOSINOPHILS % (AUTO) 5.3 % (0-6); HEMATOCRIT 27.5 % (35.0-45.0); HEMOGLOBIN 9.1 g/dl (12.0-16.0); LYMPHOCYTES # (AUTO) 1.3 X10'3 (1.1-4.8); LYMPHOCYTES % (AUTO) 15.5 % (21-51); MEAN CORPUSCULAR HEMOGLOBIN 30.9 PG (27.0-31.0); MEAN CORPUSCULAR HGB CONC 33.2 g/dL (33.0-36.5); MEAN CORPUSCULAR VOLUME 93.2 FL (78-98); MONOCYTES # (AUTO) 0.8 X10'3 (0-0.9); MONOCYTES % (AUTO) 9.5 % (2-12); NEUTROPHILS # (AUTO) 5.7 X10'3 (1.8-7.7); NEUTROPHILS % (AUTO) 69.4 % (42-75); PLATELET COUNT 234 X10'3 (140-440); RED BLOOD COUNT 2.95 X10'6 (4.20-5.60); RED CELL DISTRIBUTION WIDTH 15.9 % (11.5-14.5); WHITE BLOOD COUNT 8.2 X10'3 (4.5-11.0)
[2022-02-03 06:42] LABS: ALANINE AMINOTRANSFERASE 66 U/L (12-78); ALBUMIN 2.3 G/DL (3.4-5.0); ALBUMIN/GLOBULIN RATIO 0.6 (1.1-1.5); ALKALINE PHOSPHATASE 67 IU/L (46-116); ANION GAP 10 (8-16); ASPARTATE AMINO TRANSFERASE 67 U/L (10-37); BILIRUBIN,TOTAL 0.3 MG/DL (0.1-1.0); BLOOD UREA NITROGEN 33 MG/DL (7-18); BUN/CREATININE RATIO 23.4 (6.6-38.0); CALCIUM 8.7 MG/DL (8.5-10.1); CHLORIDE 108 MMOL/L (99-107); CREATININE 1.41 MG/DL (0.40-0.90); GLUCOSE 117 MG/DL (70-104); MAGNESIUM 1.7 MG/DL (1.5-2.4); PHOSPHORUS 3.7 MG/DL (2.3-4.5); POTASSIUM 3.7 MMOL/L (3.5-5.1); SODIUM 143 MMOL/L (135-145); TOTAL CARBON DIOXIDE 24.6 MMOL/L (24-32); TOTAL PROTEIN 6.1 G/DL (6.4-8.2); eGFR 37 ML/MIN
[2022-02-03 07:18] LABS: ANISOCYTOSIS 1+; PLATELET ESTIMATE NORMAL; POLYCHROMASIA FEW; TOTAL CELLS COUNTED 100
[2022-02-03] MEDS: folic acid 1mg tablet PO SCH (09:00)
[2022-02-03] MEDS: gabapentin 300mg capsule PO SCH (09:00)
[2022-02-03] MEDS: levetiracetam inj 1,000 MG in normal saline 100ml IV soln 100 ML IV SCH ×2 (09:00→19:33)
[2022-02-03] MEDS: mesalamine 1.2gm ER tablet PO SCH (09:00)
[2022-02-03] MEDS: insulin Lispro (HumaLOG) vial - multi-dose SQ SCH ×3 (09:51→19:36)
[2022-02-03 10:00] VITALS: BP 141/68
[2022-02-03] MEDS: pantoprazole 40mg Tablet.DR PO SCH (13:38)
[2022-02-03] MEDS: normal saline 1000ml 1,000 ML IV SCH (14:52)
[2022-02-03] MEDS: fluconazole 100mg tablet PO SCH (15:31)
[2022-02-03] MEDS: nystatin 500,000 unit/5ML UD oral suspension PO SCH ×2 (15:31→21:39)
[2022-02-03 18:00] VITALS: BP 165/60
--- NOTE | 2022-02-03 18:35 | NUR ---
Problems reprioritized. Patient report given, questions answered & plan of care reviewed with LYSSA Michele.
--- NOTE | 2022-02-03 19:07 | NUR ---
Patient in room MT 340. I have received report from MAURICIO OMALLEY and had the opportunity to ask questions and assume patient care.
[2022-02-03] MEDS ORDERED: nystatin 500,000 unit/5ML UD oral suspension PO SCH (21:00)
[2022-02-03] MEDS: duloxetine 30mg CAPSULE.DR PO SCH (21:39)
[2022-02-03] MEDS: insulin glargine (Lantus) pen - multi-dose SQ SCH (21:43)
[2022-02-03 22:00] VITALS: BP 148/74
[2022-02-04] MEDS: CefTRIAXone 2gm/D5W 50ml BAG 50 ML IV SCH ×2 (00:32→12:40)
[2022-02-04] MEDS: heparin, porcine 5000 units/ml vial SQ SCH ×3 (00:33→16:40)
[2022-02-04] MEDS: normal saline 1000ml 1,000 ML IV SCH (05:20)
[2022-02-04 06:00] VITALS: BP 146/66
[2022-02-04 06:16] LABS: MEAN CORPUSCULAR VOLUME 91.5 FL (78-98); RED CELL DISTRIBUTION WIDTH 15.9 % (11.5-14.5)
[2022-02-04 06:18] LABS: BASOPHILS % (AUTO) 0.4 % (0-1); EOSINOPHILS # (AUTO) 0.4 X10'3 (0-0.9); EOSINOPHILS % (AUTO) 4.9 % (0-6); HEMATOCRIT 26.5 % (35.0-45.0); LYMPHOCYTES # (AUTO) 1.4 X10'3 (1.1-4.8); MEAN CORPUSCULAR HGB CONC 33.9 g/dL (33.0-36.5); MEAN PLATELET VOLUME 8.7 FL (7.4-10.4); MONOCYTES # (AUTO) 0.9 X10'3 (0-0.9); MONOCYTES % (AUTO) 10.3 % (2-12); NEUTROPHILS # (AUTO) 6.1 X10'3 (1.8-7.7); NEUTROPHILS % (AUTO) 68.4 % (42-75); PLATELET COUNT 232 X10'3 (140-440); WHITE BLOOD COUNT 8.9 X10'3 (4.5-11.0)
--- NOTE | 2022-02-04 06:20 | NUR ---
Patient in room MT 340. I have received report from LYSSA Michele and had the opportunity to ask questions and assume patient care.
[2022-02-04 06:24] LABS: APTT 25 SECONDS (22-32)
--- NOTE | 2022-02-04 06:30 | NUR ---
Problems reprioritized. Patient report given, questions answered & plan of care reviewed with LYSSA Marcano.
--- NOTE | 2022-02-04 06:41 | NUR ---
Problems reprioritized. Patient report given, questions answered & plan of care reviewed with MAURICIO RN.
[2022-02-04 06:47] LABS: ALANINE AMINOTRANSFERASE 62 U/L (12-78); ALBUMIN 2.1 G/DL (3.4-5.0); ALBUMIN/GLOBULIN RATIO 0.6 (1.1-1.5); ALKALINE PHOSPHATASE 67 IU/L (46-116); ANION GAP 12 (8-16); ASPARTATE AMINO TRANSFERASE 52 U/L (10-37); BILIRUBIN,TOTAL 0.3 MG/DL (0.1-1.0); BLOOD UREA NITROGEN 26 MG/DL (7-18); BUN/CREATININE RATIO 20.6 (6.6-38.0); CALCIUM 8.3 MG/DL (8.5-10.1); CHLORIDE 108 MMOL/L (99-107); CREATININE 1.26 MG/DL (0.40-0.90); GLUCOSE 111 MG/DL (70-104); MAGNESIUM 1.5 MG/DL (1.5-2.4); PHOSPHORUS 3.4 MG/DL (2.3-4.5); POTASSIUM 3.7 MMOL/L (3.5-5.1); SODIUM 142 MMOL/L (135-145); TOTAL CARBON DIOXIDE 22.4 MMOL/L (24-32); TOTAL PROTEIN 5.9 G/DL (6.4-8.2); eGFR 42 ML/MIN
[2022-02-04 07:57] LABS: TOTAL CELLS COUNTED 100
[2022-02-04 07:58] LABS: ANISOCYTOSIS 1+; PLATELET ESTIMATE NORMAL; POLYCHROMASIA FEW
[2022-02-04] MEDS: levetiracetam inj 1,000 MG in normal saline 100ml IV soln 100 ML IV SCH ×2 (09:07→20:11)
[2022-02-04] MEDS: pantoprazole 40mg Tablet.DR PO SCH (09:07)
[2022-02-04] MEDS: gabapentin 300mg capsule PO SCH (09:07)
[2022-02-04] MEDS: mesalamine 1.2gm ER tablet PO SCH (09:07)
[2022-02-04] MEDS: nystatin 500,000 unit/5ML UD oral suspension PO SCH ×3 (09:07→21:20)
[2022-02-04] MEDS: folic acid 1mg tablet PO SCH (09:07)
[2022-02-04] MEDS: fluconazole 100mg tablet PO SCH (09:08)
[2022-02-04] MEDS: insulin Lispro (HumaLOG) vial - multi-dose SQ SCH ×3 (09:28→19:16)
[2022-02-04 10:00] VITALS: BP 157/57
[2022-02-04 18:40] VITALS: BP 144/60
[2022-02-04] MEDS: duloxetine 30mg CAPSULE.DR PO SCH (21:20)
[2022-02-04] MEDS: insulin glargine (Lantus) pen - multi-dose SQ SCH (21:26)
[2022-02-04 22:00] VITALS: BP 147/68
[2022-02-05] VITALS (7 sets, daily range): BP systolic 134–156; BP diastolic 58–61
[2022-02-05] MEDS: CefTRIAXone 2gm/D5W 50ml BAG 50 ML IV SCH (00:24)
[2022-02-05] MEDS: heparin, porcine 5000 units/ml vial SQ SCH ×4 (00:25→23:52)
--- NOTE | 2022-02-05 06:30 | NUR ---
Problems reprioritized. Patient report given, questions answered & plan of care reviewed with FREDDY. Addendum: 02/05/22 at 0643 by Marco Aguilar RN Amended: Links added.
[2022-02-05] MEDS: pantoprazole 40mg Tablet.DR PO SCH (06:47)
[2022-02-05] MEDS: acetaminophen 325mg tablet PO PRN (06:48)
--- NOTE | 2022-02-05 06:49 | NUR ---
Patient in room MT 340. I have received report from Jeet OMALLEY and had the opportunity to ask questions and assume patient care.
[2022-02-05 06:53] LABS: BASOPHILS % (AUTO) 0.5 % (0-1); EOSINOPHILS # (AUTO) 0.4 X10'3 (0-0.9); EOSINOPHILS % (AUTO) 4.4 % (0-6); HEMATOCRIT 26.4 % (35.0-45.0); HEMOGLOBIN 8.9 g/dl (12.0-16.0); LYMPHOCYTES # (AUTO) 1.5 X10'3 (1.1-4.8); LYMPHOCYTES % (AUTO) 18.1 % (21-51); MEAN CORPUSCULAR HEMOGLOBIN 31.4 PG (27.0-31.0); MEAN CORPUSCULAR HGB CONC 33.8 g/dL (33.0-36.5); MEAN CORPUSCULAR VOLUME 93.1 FL (78-98); MEAN PLATELET VOLUME 8.4 FL (7.4-10.4); MONOCYTES # (AUTO) 0.9 X10'3 (0-0.9); MONOCYTES % (AUTO) 10.6 % (2-12); NEUTROPHILS # (AUTO) 5.5 X10'3 (1.8-7.7); NEUTROPHILS % (AUTO) 66.4 % (42-75); PLATELET COUNT 220 X10'3 (140-440); RED BLOOD COUNT 2.83 X10'6 (4.20-5.60); RED CELL DISTRIBUTION WIDTH 16.1 % (11.5-14.5); WHITE BLOOD COUNT 8.3 X10'3 (4.5-11.0)
[2022-02-05 07:08] LABS: APTT 24 SECONDS (22-32)
[2022-02-05 07:10] LABS: ALANINE AMINOTRANSFERASE 66 U/L (12-78); ALBUMIN 2.1 G/DL (3.4-5.0); ALBUMIN/GLOBULIN RATIO 0.6 (1.1-1.5); ALKALINE PHOSPHATASE 65 IU/L (46-116); ANION GAP 10 (8-16); ASPARTATE AMINO TRANSFERASE 46 U/L (10-37); BILIRUBIN,TOTAL 0.3 MG/DL (0.1-1.0); BLOOD UREA NITROGEN 22 MG/DL (7-18); BUN/CREATININE RATIO 16.3 (6.6-38.0); CALCIUM 8.9 MG/DL (8.5-10.1); CHLORIDE 107 MMOL/L (99-107); CREATININE 1.35 MG/DL (0.40-0.90); GLUCOSE 137 MG/DL (70-104); MAGNESIUM 1.5 MG/DL (1.5-2.4); PHOSPHORUS 3.3 MG/DL (2.3-4.5); POTASSIUM 3.9 MMOL/L (3.5-5.1); SODIUM 140 MMOL/L (135-145); TOTAL PROTEIN 5.8 G/DL (6.4-8.2); eGFR 38 ML/MIN
[2022-02-05 07:33] LABS: ANISOCYTOSIS 1+; PLATELET ESTIMATE NORMAL; TOTAL CELLS COUNTED 100
[2022-02-05 07:34] LABS: POLYCHROMASIA FEW
[2022-02-05] MEDS: gabapentin 300mg capsule PO SCH (08:08)
[2022-02-05] MEDS: folic acid 1mg tablet PO SCH (08:08)
[2022-02-05] MEDS: fluconazole 100mg tablet PO SCH (08:09)
[2022-02-05] MEDS: mesalamine 1.2gm ER tablet PO SCH (08:09)
[2022-02-05] MEDS: nystatin 500,000 unit/5ML UD oral suspension PO SCH ×3 (08:10→19:46)
[2022-02-05] MEDS: levetiracetam inj 1,000 MG in normal saline 100ml IV soln 100 ML IV SCH (08:13)
[2022-02-05] MEDS: insulin Lispro (HumaLOG) vial - multi-dose SQ SCH ×3 (08:22→19:52)
--- NOTE | 2022-02-05 08:30 | NUR ---
Reassessment; Pt continues on Carb control/EC7 diet w/ avg intake 50% x 9 meals partially meeting needs. Glucerna TID remains unverified in EMR though pt can still benefit from them. LBM 02/04. No change to recommendations at this time, will continue to monitor. Rec: 1. Continue carb controlled/EC7 diet per YARN POLISHING MACHINE OPERATOR/ recs; encourage PO 2. Glucerna TIDWM; pending MD verification in EMR 3. routine bowel care 4. weekly wts Addendum: 02/05/22 at [address] Amended: Links added.
--- NOTE | 2022-02-05 17:37 | NUR ---
PAGER ID: [phone] MESSAGE: NAIN Mckeon RM 531K would it be possible to switch her IV Keppra to PO? Lynsey [phone]
--- NOTE | 2022-02-05 18:16 | NUR ---
Problems reprioritized. Patient report given, questions answered & plan of care reviewed with Jeet OMALLEY.
[2022-02-05] MEDS: duloxetine 30mg CAPSULE.DR PO SCH (19:46)
[2022-02-05] MEDS: levetiracetam 250mg tablet PO SCH (19:46)
[2022-02-05] MEDS: insulin glargine (Lantus) pen - multi-dose SQ SCH (22:15)
[2022-02-06 06:03] LABS: BASOPHILS % (AUTO) 0.5 % (0-1); EOSINOPHILS # (AUTO) 0.4 X10'3 (0-0.9); EOSINOPHILS % (AUTO) 4.9 % (0-6); HEMATOCRIT 26.8 % (35.0-45.0); LYMPHOCYTES # (AUTO) 1.6 X10'3 (1.1-4.8); LYMPHOCYTES % (AUTO) 18.9 % (21-51); MEAN CORPUSCULAR HEMOGLOBIN 31.4 PG (27.0-31.0); MEAN CORPUSCULAR HGB CONC 33.5 g/dL (33.0-36.5); MEAN CORPUSCULAR VOLUME 93.5 FL (78-98); MEAN PLATELET VOLUME 8.3 FL (7.4-10.4); MONOCYTES # (AUTO) 0.9 X10'3 (0-0.9); MONOCYTES % (AUTO) 10.2 % (2-12); NEUTROPHILS # (AUTO) 5.7 X10'3 (1.8-7.7); NEUTROPHILS % (AUTO) 65.5 % (42-75); PLATELET COUNT 244 X10'3 (140-440); RED BLOOD COUNT 2.87 X10'6 (4.20-5.60); RED CELL DISTRIBUTION WIDTH 16.7 % (11.5-14.5); WHITE BLOOD COUNT 8.7 X10'3 (4.5-11.0)
[2022-02-06 06:10] LABS: APTT 25 SECONDS (22-32)
[2022-02-06 06:18] LABS: ALANINE AMINOTRANSFERASE 65 U/L (12-78); ALBUMIN 2.3 G/DL (3.4-5.0); ALBUMIN/GLOBULIN RATIO 0.6 (1.1-1.5); ALKALINE PHOSPHATASE 65 IU/L (46-116); ANION GAP 9 (8-16); ASPARTATE AMINO TRANSFERASE 43 U/L (10-37); BILIRUBIN,TOTAL 0.4 MG/DL (0.1-1.0); BLOOD UREA NITROGEN 24 MG/DL (7-18); BUN/CREATININE RATIO 15.9 (6.6-38.0); CHLORIDE 108 MMOL/L (99-107); CREATININE 1.51 MG/DL (0.40-0.90); GLUCOSE 111 MG/DL (70-104); MAGNESIUM 1.6 MG/DL (1.5-2.4); PHOSPHORUS 3.8 MG/DL (2.3-4.5); SODIUM 139 MMOL/L (135-145); eGFR 34 ML/MIN
--- NOTE | 2022-02-06 06:25 | NUR ---
Problems reprioritized. Patient report given, questions answered & plan of care reviewed with FREDDY. Addendum: 02/06/22 at 0628 by Marco Aguliar RN Amended: Links added.
[2022-02-06 06:54] VITALS: BP 139/58
[2022-02-06] MEDS: gabapentin 300mg capsule PO SCH (08:02)
[2022-02-06] MEDS: levetiracetam 250mg tablet PO SCH ×2 (08:03→20:13)
[2022-02-06] MEDS: pantoprazole 40mg Tablet.DR PO SCH (08:03)
[2022-02-06] MEDS: mesalamine 1.2gm ER tablet PO SCH (08:03)
[2022-02-06] MEDS: folic acid 1mg tablet PO SCH (08:03)
[2022-02-06] MEDS: nystatin 500,000 unit/5ML UD oral suspension PO SCH ×3 (08:03→20:13)
[2022-02-06] MEDS: heparin, porcine 5000 units/ml vial SQ SCH ×2 (08:04→16:28)
[2022-02-06 09:08] LABS: ANISOCYTOSIS 1+; PLATELET ESTIMATE NORMAL; TOTAL CELLS COUNTED 100
[2022-02-06 09:09] LABS: POLYCHROMASIA FEW
[2022-02-06] MEDS: insulin Lispro (HumaLOG) vial - multi-dose SQ SCH ×3 (09:37→20:17)
[2022-02-06 10:00] VITALS: BP 154/64
--- NOTE | 2022-02-06 15:39 | NUR ---
PAGER ID: [phone] MESSAGE: Fina-Surg [phone]: Linda [phone] please call re: placement issue casemanagement discussed with daughter Addendum: 02/06/22 at 1545 by Fina Curiel RN Dr Silveira aware that patient's daughter will come on Feb 08 to pick patient up and take back to [place]. Dr Silveira also aware family would like patients RX's on discharge to be called to [facility] in [facility]. Neither I or Case managment could find that pharmacy in our computer medication system.
--- NOTE | 2022-02-06 15:41 | NUR ---
Pt up with nursing for 300 ft ambulation with FWW, pt was stable. Pt back in room in recliner chair with feet elevated.
[2022-02-06 18:00] VITALS: BP 155/56
--- NOTE | 2022-02-06 18:20 | NUR ---
Patient in room MT 340. I have received report from SEVERINO Menon and had the opportunity to ask questions and assume patient care.
--- NOTE | 2022-02-06 18:33 | NUR ---
Problems reprioritized. Patient report given, questions answered & plan of care reviewed with Malu OMALLEY.
[2022-02-06] MEDS: duloxetine 30mg CAPSULE.DR PO SCH (20:13)
[2022-02-06 22:00] VITALS: BP 154/58
[2022-02-06] MEDS: insulin glargine (Lantus) pen - multi-dose SQ SCH (22:06)
--- NOTE | 2022-02-07 00:05 | NUR ---
Patient in room MT 340. I have received report from LYSSA Marroquin and had the opportunity to ask questions and assume patient care.
[2022-02-07] MEDS: heparin, porcine 5000 units/ml vial SQ SCH ×3 (01:31→16:12)
[2022-02-07 06:00] VITALS: BP 149/62
[2022-02-07 06:13] LABS: BASOPHILS % (AUTO) 0.5 % (0-1); EOSINOPHILS # (AUTO) 0.4 X10'3 (0-0.9); EOSINOPHILS % (AUTO) 4.5 % (0-6); HEMATOCRIT 27.2 % (35.0-45.0); LYMPHOCYTES # (AUTO) 1.7 X10'3 (1.1-4.8); LYMPHOCYTES % (AUTO) 19.5 % (21-51); MEAN CORPUSCULAR HEMOGLOBIN 30.8 PG (27.0-31.0); MEAN CORPUSCULAR VOLUME 93.5 FL (78-98); MEAN PLATELET VOLUME 8.6 FL (7.4-10.4); MONOCYTES % (AUTO) 11.8 % (2-12); NEUTROPHILS # (AUTO) 5.6 X10'3 (1.8-7.7); NEUTROPHILS % (AUTO) 63.7 % (42-75); PLATELET COUNT 251 X10'3 (140-440); RED BLOOD COUNT 2.91 X10'6 (4.20-5.60); RED CELL DISTRIBUTION WIDTH 16.6 % (11.5-14.5); WHITE BLOOD COUNT 8.9 X10'3 (4.5-11.0)
[2022-02-07 06:29] LABS: ALANINE AMINOTRANSFERASE 77 U/L (12-78); ALBUMIN 2.4 G/DL (3.4-5.0); ALBUMIN/GLOBULIN RATIO 0.6 (1.1-1.5); ALKALINE PHOSPHATASE 70 IU/L (46-116); ANION GAP 7 (8-16); ASPARTATE AMINO TRANSFERASE 48 U/L (10-37); BILIRUBIN,TOTAL 0.5 MG/DL (0.1-1.0); BLOOD UREA NITROGEN 22 MG/DL (7-18); BUN/CREATININE RATIO 16.7 (6.6-38.0); CALCIUM 9.2 MG/DL (8.5-10.1); CHLORIDE 106 MMOL/L (99-107); CREATININE 1.32 MG/DL (0.40-0.90); GLUCOSE 108 MG/DL (70-104); MAGNESIUM 1.6 MG/DL (1.5-2.4); POTASSIUM 3.9 MMOL/L (3.5-5.1); SODIUM 137 MMOL/L (135-145); TOTAL CARBON DIOXIDE 23.9 MMOL/L (24-32); TOTAL PROTEIN 6.1 G/DL (6.4-8.2); eGFR 39 ML/MIN
--- NOTE | 2022-02-07 06:30 | NUR ---
Problems reprioritized. Patient report given, questions answered & plan of care reviewed with SEVERINO Menon.
--- NOTE | 2022-02-07 06:49 | NUR ---
Patient in room MT 340. I have received report from gadiel Porter and had the opportunity to ask questions and assume patient care.
--- NOTE | 2022-02-07 06:49 | NUR ---
Patient in room MT 340. I have received report from Malu OMALLEY and had the opportunity to ask questions and assume patient care.
[2022-02-07] MEDS: mesalamine 1.2gm ER tablet PO SCH (07:56)
[2022-02-07] MEDS: folic acid 1mg tablet PO SCH (07:57)
[2022-02-07] MEDS: gabapentin 300mg capsule PO SCH (07:57)
[2022-02-07] MEDS: pantoprazole 40mg Tablet.DR PO SCH (07:57)
[2022-02-07] MEDS: levetiracetam 250mg tablet PO SCH ×2 (07:57→21:30)
[2022-02-07] MEDS: nystatin 500,000 unit/5ML UD oral suspension PO SCH ×3 (07:58→21:31)
[2022-02-07 08:30] LABS: APTT 24 SECONDS (22-32)
[2022-02-07 10:44] LABS: TOTAL CELLS COUNTED 100
[2022-02-07 10:45] LABS: ANISOCYTOSIS 1+; PLATELET ESTIMATE NORMAL; POLYCHROMASIA FEW
[2022-02-07 10:46] LABS: ELLIPTOCYTES FEW; STOMATOCYTES FEW; TEAR DROP CELLS FEW
[2022-02-07 11:00] VITALS: BP 156/65
[2022-02-07] MEDS: insulin Lispro (HumaLOG) vial - multi-dose SQ SCH ×2 (13:25→19:41)
--- NOTE | 2022-02-07 15:04 | NUR ---
Maria R HAQ Physical assessment reviewed and agree with findings. Findings correlate with my P.A. findings.
--- NOTE | 2022-02-07 17:37 | NUR ---
Student documentation: I have reviewed and agree with all interventions, assessments performed and documented by SN Prudence.
--- NOTE | 2022-02-07 18:35 | NUR ---
Patient in room MT 340. I have received report from NAREN OMALLEY and had the opportunity to ask questions and assume patient care.
[2022-02-07 19:00] VITALS: BP 137/50
[2022-02-07] MEDS: duloxetine 30mg CAPSULE.DR PO SCH (21:31)
[2022-02-07] MEDS: insulin glargine (Lantus) pen - multi-dose SQ SCH (21:52)
[2022-02-07 23:00] VITALS: BP 151/70
[2022-02-08] MEDS: heparin, porcine 5000 units/ml vial SQ SCH ×2 (00:13→08:39)
--- NOTE | 2022-02-08 01:10 | NUR ---
Patient report given, questions answered & plan of care reviewed with KATINA OMALLEY.
[2022-02-08 06:00] VITALS: BP 151/57
[2022-02-08 06:18] LABS: BASOPHILS % (AUTO) 0.5 % (0-1); EOSINOPHILS # (AUTO) 0.3 X10'3 (0-0.9); HEMATOCRIT 27.4 % (35.0-45.0); HEMOGLOBIN 9.3 g/dl (12.0-16.0); LYMPHOCYTES # (AUTO) 1.6 X10'3 (1.1-4.8); LYMPHOCYTES % (AUTO) 19.6 % (21-51); MEAN CORPUSCULAR HEMOGLOBIN 31.5 PG (27.0-31.0); MEAN CORPUSCULAR HGB CONC 33.8 g/dL (33.0-36.5); MEAN CORPUSCULAR VOLUME 93.3 FL (78-98); MEAN PLATELET VOLUME 8.5 FL (7.4-10.4); MONOCYTES # (AUTO) 0.9 X10'3 (0-0.9); MONOCYTES % (AUTO) 11.1 % (2-12); NEUTROPHILS # (AUTO) 5.4 X10'3 (1.8-7.7); NEUTROPHILS % (AUTO) 64.8 % (42-75); PLATELET COUNT 236 X10'3 (140-440); RED BLOOD COUNT 2.94 X10'6 (4.20-5.60); RED CELL DISTRIBUTION WIDTH 16.6 % (11.5-14.5); WHITE BLOOD COUNT 8.4 X10'3 (4.5-11.0)
[2022-02-08 06:22] LABS: APTT 26 SECONDS (22-32)
--- NOTE | 2022-02-08 06:32 | NUR ---
Patient in room MT 340. I have received report from gadiel OMALLEY and had the opportunity to ask questions and assume patient care.
[2022-02-08 06:36] LABS: ALANINE AMINOTRANSFERASE 81 U/L (12-78); ALBUMIN 2.6 G/DL (3.4-5.0); ALBUMIN/GLOBULIN RATIO 0.7 (1.1-1.5); ALKALINE PHOSPHATASE 76 IU/L (46-116); ANION GAP 8 (8-16); ASPARTATE AMINO TRANSFERASE 45 U/L (10-37); BILIRUBIN,TOTAL 0.6 MG/DL (0.1-1.0); BLOOD UREA NITROGEN 22 MG/DL (7-18); BUN/CREATININE RATIO 16.3 (6.6-38.0); CALCIUM 9.1 MG/DL (8.5-10.1); CHLORIDE 104 MMOL/L (99-107); CREATININE 1.35 MG/DL (0.40-0.90); GLUCOSE 142 MG/DL (70-104); MAGNESIUM 1.4 MG/DL (1.5-2.4); PHOSPHORUS 3.9 MG/DL (2.3-4.5); SODIUM 137 MMOL/L (135-145); TOTAL CARBON DIOXIDE 24.7 MMOL/L (24-32); TOTAL PROTEIN 6.3 G/DL (6.4-8.2); eGFR 38 ML/MIN
--- NOTE | 2022-02-08 06:48 | NUR ---
Problems reprioritized. Patient report given, questions answered & plan of care reviewed with LYSSA Omalley.
[2022-02-08 08:00] LABS: ANISOCYTOSIS 1+; PLATELET ESTIMATE NORMAL; POLYCHROMASIA FEW; TOTAL CELLS COUNTED 100
[2022-02-08] MEDS: nystatin 500,000 unit/5ML UD oral suspension PO SCH (08:38)
[2022-02-08] MEDS: pantoprazole 40mg Tablet.DR PO SCH (08:40)
[2022-02-08] MEDS: folic acid 1mg tablet PO SCH (08:40)
[2022-02-08] MEDS: mesalamine 1.2gm ER tablet PO SCH (08:41)
[2022-02-08] MEDS: gabapentin 300mg capsule PO SCH (08:42)
[2022-02-08] MEDS: levetiracetam 250mg tablet PO SCH (08:42)
[2022-02-08 10:00] VITALS: BP_SYST 126; BP_SYST 151; BP_DIAS 57; BP_DIAS 73
[2022-02-08] MEDS: insulin Lispro (HumaLOG) vial - multi-dose SQ SCH (10:36)
[2022-02-08] MEDS ORDERED: LEVE250T PO (12:49)
[2022-02-08] MEDS ORDERED: THIA50TA10 PO (12:49)
--- NOTE | 2022-02-08 14:45 | NUR ---
Pt DC to home with daughter in [place]. Pt is A 7 ox4 and in noo apparent distress. Pt and daughter verbalized understanding of all DC orders, and the fact that there is no P.T or HH in [place] for patient. Education given on wound care for pt, S&S of infection and when to follow up with PCP. Daughter states understanding of follow up care and assumes care for pt. pt able to ambulate with FWW and a stand by person as she uses the bathroom. No assistance needed on getting dress or ADL's Pt wheeled to the front where daughter took her home.
== END 2022-02-08 14:44 | disposition home or self-care (01) | DRG 871 ==
LOC: ER 11:22 → ED HOLD 14:48 → CICU 2S 23:40 → SUR 3N 01-31 23:06
PROVIDERS: ADMIT Internal Medicine Critical Care Medicine; ATTEND Internal Medicine Critical Care Medicine
PROC: 009U3ZX Drainage of Spinal Canal, Percutaneous Approach, Diagnostic (ICD-10-PCS; principal; 2022-01-29)
PROC: B01B1ZZ Fluoroscopy of Spinal Cord using Low Osmolar Contrast (ICD-10-PCS; 2022-01-29)
PROC: 5A1945Z Respiratory Ventilation, 24-96 Consecutive Hours (ICD-10-PCS; 2022-01-29)
PROC: 0BH17EZ Insertion of Endotracheal Airway into Trachea, Via Natural or Artificial Opening (ICD-10-PCS; 2022-01-29)
DX: A41.9 Sepsis, unspecified organism (principal); G03.9 Meningitis, unspecified; I21.4 Non-ST elevation (NSTEMI) myocardial infarction; J96.00 Acute respiratory failure, unspecified whether with hypoxia or hypercapnia; J18.9 Pneumonia, unspecified organism; L97.429 Non-pressure chronic ulcer of left heel and midfoot with unspecified severity; G93.40 Encephalopathy, unspecified; N17.9 Acute kidney failure, unspecified; E87.20 Acidosis, unspecified; E87.0 Hyperosmolality and hypernatremia; D72.823 Leukemoid reaction; E11.22 Type 2 diabetes mellitus with diabetic chronic kidney disease; Z20.822 Contact with and (suspected) exposure to COVID-19; E11.621 Type 2 diabetes mellitus with foot ulcer; E78.5 Hyperlipidemia, unspecified; R74.01 Elevation of levels of liver transaminase levels; D64.9 Anemia, unspecified; E11.65 Type 2 diabetes mellitus with hyperglycemia; I12.9 Hypertensive chronic kidney disease with stage 1 through stage 4 chronic kidney disease, or unspecified chronic kidney disease; K21.9 Gastro-esophageal reflux disease without esophagitis; N18.30 Chronic kidney disease, stage 3 unspecified; Z89.412 Acquired absence of left great toe; Z90.49 Acquired absence of other specified parts of digestive tract; Z90.710 Acquired absence of both cervix and uterus; Z98.1 Arthrodesis status; Z78.9 Other specified health status; Z79.899 Other long term (current) drug therapy
CPT/HCPCS: 31500; 36415; 36600; 62328; 70450; 70544; 70547; 70551; 71045; 71250; 72141; 73030; 74176; 77003; 80053; 80202; 80305; 80320; 81001; 82550; 82553; 82803; 82948; 83605; 83690; 83735; 83874; 84100; 84145; 84484; 85007; 85018; 85025; 85610; 85730; 86592; 86788; 86789; 87015; 87040; 87070; 87081; 87529; 87811; 89051; 92508; 92616; 93005; 94002; 94003; 94760; 94799; 96365; 96366; 96368; 97116; 97161; 97530; 99291; 99292; A4615; A4649; A6212; A6213; A6250; A6449; G0378; J0290; J0696; J1644; J1815; J1953; J2250; J2704; J3010; J3370; J3490; J7030; J7040; J7042; J7050; J7070

== ENCOUNTER 2022-07-03 11:53 | Inpatient (IN) | payer BC, MEDICARE, OTHER ==
[~2022-07-03] VITALS: Ht 154.9 cm; Wt 81.0 kg
[~2022-07-03 11:53] MED LIST changes: -BISA-155 PR; -DIPH25CA83 PO; +GABA300C PO; -GABA600T13 PO; +GLIP5TAB26 PO; -LACT1CAP57 PO; +LEVE250T PO; -MAGN400O6 PO; +MERC50TA16 PO; +METF-1203 PO; -MULT-215 PO; -SALINE ENEMA PR; +THIA50TA10 PO; -TYL650S PO
[2022-07-03] MEDS ORDERED: magnesium hydroxide 30ml (MOM) UD suspension PO PRN (12:25)
[2022-07-03] MEDS ORDERED: glucagon, human recombinant 1mg kit SUBCUT PRN (12:25)
[2022-07-03] MEDS ORDERED: HYDROcodone/acetaminophen 10/325mg tab PO PRN (12:25)
[2022-07-03] MEDS ORDERED: acetaminophen 325mg tablet PO PRN ×2 (12:25)
[2022-07-03] MEDS ORDERED: DEXTROSE 15 GM of carb/4 tabs (each vial/BOTTLE has 4 tablets) PO PRN ×2 (12:25)
[2022-07-03] MEDS ORDERED: ondansetron/PF 4mg/2ml inj IV PRN (12:25)
[2022-07-03] MEDS ORDERED: insulin Lispro (HumaLOG) vial - multi-dose SQ SCH (12:25)
[2022-07-03] MEDS ORDERED: HYDROcodone/acetaminophen 5mg/325mg tablet PO PRN (12:25)
[2022-07-03] MEDS ORDERED: dextrose 50%-water 50ml dispensing syringe IV PRN ×2 (12:25)
[2022-07-03] MEDS ORDERED: MESSAGE TO PHARMACY PO ONE (12:25)
[2022-07-03] MEDS ORDERED: morphine 2 MG/ML inj. syringe IV PRN ×2 (12:25)
[2022-07-03] MEDS ORDERED: mag hydrox/Alum hydrox/simeth 30ml oral suspension PO PRN (12:25)
[2022-07-03] MEDS ORDERED: CEFTAZIDIME IV SCH (12:36)
[2022-07-03] MEDS ORDERED: AVIBACTAM IV SCH (12:36)
[2022-07-03] MEDS ORDERED: NORMAL SALINE IV SCH (12:36)
[2022-07-03] MEDS ORDERED: SULF1TAB45 PO (13:58)
[2022-07-03] MEDS ORDERED: AMOX-580 PO (13:58)
[2022-07-03] MEDS ORDERED: LEVE500T PO (13:58)
[2022-07-03 15:00] VITALS: BP 115/55
--- NOTE | 2022-07-03 15:00 | NUR ---
received report from LYSSA Hansen in outpt clinic. patient arrived to floor. VSS. dressing CDI and newly placed. Per WOCN pictures will be taken tomorrow by wound care because they were just dressed outpatient.
[2022-07-03 15:31] LABS: BASOPHILS % (AUTO) 0.6 % (0-1); EOSINOPHILS # (AUTO) 0.1 X10'3 (0-0.9); HEMATOCRIT 28.7 % (35.0-45.0); HEMOGLOBIN 9.5 g/dl (12.0-16.0); LYMPHOCYTES # (AUTO) 0.9 X10'3 (1.1-4.8); LYMPHOCYTES % (AUTO) 28.7 % (21-51); MEAN CORPUSCULAR HEMOGLOBIN 34.6 PG (27.0-31.0); MEAN CORPUSCULAR VOLUME 104.8 FL (78-98); MONOCYTES # (AUTO) 0.2 X10'3 (0-0.9); NEUTROPHILS # (AUTO) 1.8 X10'3 (1.8-7.7); NEUTROPHILS % (AUTO) 60.7 % (42-75); PLATELET COUNT 281 X10'3 (140-440); RED BLOOD COUNT 2.74 X10'6 (4.20-5.60); RED CELL DISTRIBUTION WIDTH 20.4 % (11.5-14.5)
[2022-07-03 15:56] LABS: ALANINE AMINOTRANSFERASE 19 U/L (12-78); ALBUMIN 3.3 G/DL (3.4-5.0); ALBUMIN/GLOBULIN RATIO 0.7 (1.1-1.5); ALKALINE PHOSPHATASE 83 IU/L (46-116); ANION GAP 9 (8-16); ASPARTATE AMINO TRANSFERASE 18 U/L (10-37); BILIRUBIN,TOTAL 0.4 MG/DL (0.1-1.0); BLOOD UREA NITROGEN 30 MG/DL (7-18); BUN/CREATININE RATIO 19.1 (10.0-20.0); CALCIUM 9.7 MG/DL (8.5-10.1); CHLORIDE 105 MMOL/L (99-107); CREATININE 1.57 MG/DL (0.40-0.90); GLUCOSE 157 MG/DL (70-104); SODIUM 138 MMOL/L (135-145); TOTAL CARBON DIOXIDE 24.1 MMOL/L (24-32); TOTAL PROTEIN 8.1 G/DL (6.4-8.2); eGFR 32 ML/MIN
[2022-07-03 16:14] LABS: TOTAL CELLS COUNTED 100
[2022-07-03 16:15] LABS: ANISOCYTOSIS 3+; PLATELET ESTIMATE NORMAL
--- NOTE | 2022-07-03 16:34 | NUR ---
new admits needing darting [id number] & [id number] thanks! :)
[2022-07-03] MEDS ORDERED: albuterol 2.5 MG/3 ML nebule NEB PRN (17:55)
[2022-07-03 18:00] VITALS: BP 140/74
--- NOTE | 2022-07-03 18:15 | NUR ---
Problems reprioritized. Patient report given, questions answered & plan of care reviewed with LYSSA Murcia.
[2022-07-03] MEDS: docusate sod 100mg capsule PO SCH (20:00)
[2022-07-03] MEDS: gabapentin 300mg capsule PO SCH (20:11)
[2022-07-03] MEDS: levetiracetam 250mg tablet PO SCH (20:12)
[2022-07-03] MEDS: mesalamine 1.2gm ER tablet PO SCH (20:12)
[2022-07-03] MEDS: insulin glargine (Lantus) pen - multi-dose SQ SCH (20:19)
[2022-07-03 22:00] VITALS: BP 117/50
[2022-07-03] MEDS: CEFTAZIDIME IV SCH (23:42)
[2022-07-03] MEDS: NORMAL SALINE IV SCH (23:42)
[2022-07-03] MEDS: AVIBACTAM IV SCH (23:42)
[2022-07-04 06:00] VITALS: BP 114/60
[2022-07-04 06:40] VITALS: BP 114/60
[2022-07-04 07:11] LABS: BASOPHILS % (AUTO) 0.6 % (0-1); EOSINOPHILS # (AUTO) 0.2 X10'3 (0-0.9); EOSINOPHILS % (AUTO) 5.5 % (0-6); HEMATOCRIT 27.2 % (35.0-45.0); HEMOGLOBIN 9.2 g/dl (12.0-16.0); LYMPHOCYTES # (AUTO) 0.9 X10'3 (1.1-4.8); LYMPHOCYTES % (AUTO) 29.9 % (21-51); MEAN CORPUSCULAR HGB CONC 33.6 g/dL (33.0-36.5); MEAN PLATELET VOLUME 7.9 FL (7.4-10.4); MONOCYTES # (AUTO) 0.2 X10'3 (0-0.9); MONOCYTES % (AUTO) 6.4 % (2-12); NEUTROPHILS # (AUTO) 1.8 X10'3 (1.8-7.7); NEUTROPHILS % (AUTO) 57.6 % (42-75); PLATELET COUNT 274 X10'3 (140-440); RED BLOOD COUNT 2.62 X10'6 (4.20-5.60); RED CELL DISTRIBUTION WIDTH 19.7 % (11.5-14.5); WHITE BLOOD COUNT 3.1 X10'3 (4.5-11.0)
[2022-07-04 07:13] LABS: ALBUMIN 2.9 G/DL (3.4-5.0); ANION GAP 11 (8-16); BLOOD UREA NITROGEN 29 MG/DL (7-18); CALCIUM 9.5 MG/DL (8.5-10.1); CHLORIDE 108 MMOL/L (99-107); CREATININE 1.38 MG/DL (0.40-0.90); GLUCOSE 147 MG/DL (70-104); POTASSIUM 4.1 MMOL/L (3.5-5.1); SODIUM 140 MMOL/L (135-145); TOTAL CARBON DIOXIDE 20.7 MMOL/L (24-32); eGFR 37 ML/MIN
[2022-07-04] MEDS: docusate sod 100mg capsule PO SCH ×2 (08:00→20:00)
[2022-07-04] MEDS ORDERED: HYDROCHLOROTHIAZIDE PO SCH (08:00)
[2022-07-04] MEDS ORDERED: [UNRECOGNIZED DRUG - OTHER] PO SCH (08:00)
[2022-07-04] MEDS ORDERED: BENAZEPRIL PO SCH (08:00)
[2022-07-04 08:48] LABS: ANISOCYTOSIS 2+; MICROCYTOSIS 1+; PLATELET ESTIMATE NORMAL
[2022-07-04] MEDS: AVIBACTAM IV SCH ×2 (09:31→16:00)
[2022-07-04] MEDS: NORMAL SALINE IV SCH ×2 (09:31→16:00)
[2022-07-04] MEDS: CEFTAZIDIME IV SCH ×2 (09:31→16:00)
[2022-07-04] MEDS: levetiracetam 250mg tablet PO SCH ×2 (09:32→20:30)
[2022-07-04] MEDS: mesalamine 1.2gm ER tablet PO SCH ×4 (09:32→20:29)
[2022-07-04] MEDS: lisinopril 20mg tablet PO SCH (09:32)
[2022-07-04] MEDS: pantoprazole 40mg Tablet.DR PO SCH (09:32)
[2022-07-04] MEDS: atorvastatin 10mg tablet PO SCH (09:34)
[2022-07-04] MEDS: folic acid 1mg tablet PO SCH (09:35)
[2022-07-04] MEDS: enoxaparin 40mg/0.4ml syringe SUBCUT SCH (09:35)
[2022-07-04] MEDS: HYDROchlorothiazide 25mg tablet PO SCH (09:35)
[2022-07-04 11:00] VITALS: BP 118/45
--- NOTE | 2022-07-04 11:18 | NUR ---
[facility] Avycaz is not available for tonights dose but they will be able to get it tomorrow. Addendum: 07/04/22 at 1119 by Fina Curiel RN I advised that Dr David Parker saw the patient today.
[2022-07-04 11:54] VITALS: BP 118/45
--- NOTE | 2022-07-04 12:48 | NUR ---
DM Consult: Pt hx DM A1C 7.0% significantly improved from prior 10.5% 01/27' admit per EMR. A1C appropriate given age; currently on heart healthy carb controlled diet per EMR. Addendum: 07/04/22 at [address] Amended: Links added.
--- NOTE | 2022-07-04 15:30 | NUR ---
PRESSURE ULCER EDUCATION: DEFINITION: A pressure ulcer is an area of skin that breaks down when you stay in one position too long. The constant pressure against the skin reduces the blood flow to that area and the affected tissue dies. CAUSES: "Being bedridden or in a wheelchair "Fragile skin "Having a chronic condition, such as diabetes or vascular disease "Inability to move certain parts of your body without assistance "Older age "Incontinence of urine or stool SYMPTOMS: "A reddened area that DOES NOT turn white when pressed on - this can be the beginning of a pressure ulcer "A blister, deep sore or a crater - these can be advanced pressure ulcers FIRST AID: "Relieve the pressure on this area "Keep the area clean and dry "Call your primary doctor if you see any of the above symptoms "DO NOT massage the area "DO NOT use a donut shaped or ring shaped pillow- these actually interfere with the blood flow and cause complications PREVENTION: "Check for pressure ulcers everyday "Change position at least every two hours to relieve pressure "Use items that help relieve pressure- pillows, sheepskin, foam padding, and powders. "Keep skin clean and dry "Eat healthy well balanced meals "Exercise daily IF YOU SEE ANY OF THESE SYMPTOMS WHILE IN THE HOSPITAL - TELL YOUR NURSE IMMEDIATELY. IF YOU SEE ANY OF THESE SYMPTOMS WHILE AT HOME OR HAVE ANY QUESTIONS OR CONCERNS ABOUT PRESSURE ULCERS - CALL YOUR PRIMARY DOCTOR IMMEDIATELY. Addendum: 07/04/22 at 1530 by Kaye Hook RN Amended: Links added.
[2022-07-04] MEDS: CLINDAMYCIN 600mg IN NS 50ML 50 ML IV SCH (16:11)
[2022-07-04 18:00] VITALS: BP 116/54
--- NOTE | 2022-07-04 18:47 | NUR ---
Problems reprioritized. Patient report given, questions answered & plan of care reviewed with Manju RN.
[2022-07-04] MEDS: gabapentin 300mg capsule PO SCH (20:30)
[2022-07-04] MEDS: insulin glargine (Lantus) pen - multi-dose SQ SCH (20:39)
--- NOTE | 2022-07-04 22:28 | NUR ---
Pt. is awake alert oriented in good spirits ate all of dinner able to take oral meds without difficulty. Both feet wrapped in dressings and non slip socks. No c/o pain or discomfort. Peripheral IV/SL intact. Plan: continue antibiotic therapy home discharge soon.
[2022-07-05] VITALS (8 sets, daily range): BP systolic 101–143; BP diastolic 45–61
[2022-07-05] MEDS: CLINDAMYCIN 600mg IN NS 50ML 50 ML IV SCH ×3 (00:27→15:38)
[2022-07-05 06:13] LABS: ALBUMIN 2.9 G/DL (3.4-5.0); ANION GAP 9 (8-16); BLOOD UREA NITROGEN 33 MG/DL (7-18); BUN/CREATININE RATIO 22.3 (10.0-20.0); CALCIUM 9.7 MG/DL (8.5-10.1); CHLORIDE 106 MMOL/L (99-107); CREATININE 1.48 MG/DL (0.40-0.90); GLUCOSE 176 MG/DL (70-104); SODIUM 139 MMOL/L (135-145); eGFR 35 ML/MIN
[2022-07-05 06:20] LABS: BASOPHILS % (AUTO) 0.7 % (0-1); EOSINOPHILS # (AUTO) 0.2 X10'3 (0-0.9); EOSINOPHILS % (AUTO) 4.7 % (0-6); HEMATOCRIT 26.9 % (35.0-45.0); HEMOGLOBIN 9.2 g/dl (12.0-16.0); LYMPHOCYTES # (AUTO) 1.3 X10'3 (1.1-4.8); LYMPHOCYTES % (AUTO) 37.4 % (21-51); MEAN CORPUSCULAR HEMOGLOBIN 35.5 PG (27.0-31.0); MEAN CORPUSCULAR VOLUME 104.4 FL (78-98); MEAN PLATELET VOLUME 7.5 FL (7.4-10.4); MONOCYTES # (AUTO) 0.2 X10'3 (0-0.9); MONOCYTES % (AUTO) 6.4 % (2-12); NEUTROPHILS # (AUTO) 1.8 X10'3 (1.8-7.7); NEUTROPHILS % (AUTO) 50.8 % (42-75); PLATELET COUNT 321 X10'3 (140-440); RED BLOOD COUNT 2.58 X10'6 (4.20-5.60); RED CELL DISTRIBUTION WIDTH 19.4 % (11.5-14.5); WHITE BLOOD COUNT 3.6 X10'3 (4.5-11.0)
--- NOTE | 2022-07-05 06:40 | NUR ---
Patient in room MT 352. I have received report from erika rn and had the opportunity to ask questions and assume patient care.
[2022-07-05] MEDS: docusate sod 100mg capsule PO SCH ×2 (08:00→20:00)
[2022-07-05] MEDS: vitamin A & D ointment-NF 1 APPLIC TUBE TP SCH (08:00)
[2022-07-05] MEDS: enoxaparin 40mg/0.4ml syringe SUBCUT SCH (08:12)
[2022-07-05] MEDS: mesalamine 1.2gm ER tablet PO SCH ×4 (08:13→20:39)
[2022-07-05] MEDS: pantoprazole 40mg Tablet.DR PO SCH (08:13)
[2022-07-05] MEDS: atorvastatin 10mg tablet PO SCH (08:13)
[2022-07-05] MEDS: levetiracetam 250mg tablet PO SCH ×2 (08:13→20:39)
[2022-07-05] MEDS: folic acid 1mg tablet PO SCH (08:13)
[2022-07-05] MEDS: HYDROchlorothiazide 25mg tablet PO SCH (08:13)
[2022-07-05] MEDS: lisinopril 20mg tablet PO SCH (08:14)
[2022-07-05] MEDS: AVIBACTAM IV SCH ×4 (09:05→16:35)
[2022-07-05] MEDS: CEFTAZIDIME IV SCH ×4 (09:05→16:35)
[2022-07-05] MEDS: NORMAL SALINE IV SCH ×4 (09:05→16:35)
[2022-07-05] MEDS ORDERED: SITA50TA PO (16:00)
[2022-07-05] MEDS ORDERED: enoxaparin 30mg/0.3ml syringe SUBCUT SCH (17:50)
--- NOTE | 2022-07-05 18:28 | NUR ---
Problems reprioritized. Patient report given, questions answered & plan of care reviewed with KATINA OMALLEY.
--- NOTE | 2022-07-05 18:30 | NUR ---
Patient in room MT 352. I have received report from LYSSA Thomas and had the opportunity to ask questions and assume patient care.
[2022-07-05] MEDS: gabapentin 300mg capsule PO SCH (20:39)
[2022-07-05] MEDS: insulin glargine (Lantus) pen - multi-dose SQ SCH (21:00)
[2022-07-06] MEDS: NORMAL SALINE IV SCH (00:17)
[2022-07-06] MEDS: CLINDAMYCIN 600mg IN NS 50ML 50 ML IV SCH ×2 (00:17→07:57)
[2022-07-06] MEDS: CEFTAZIDIME IV SCH (00:17)
[2022-07-06] MEDS: AVIBACTAM IV SCH (00:17)
--- NOTE | 2022-07-06 06:15 | NUR ---
Problems reprioritized. Patient report given, questions answered & plan of care reviewed with LYSSA Thomas.
--- NOTE | 2022-07-06 06:26 | NUR ---
Patient in room MT 352. I have received report from gadiel putnam and had the opportunity to ask questions and assume patient care.
[2022-07-06 06:27] VITALS: BP 128/76
[2022-07-06 07:11] LABS: ALBUMIN 2.8 G/DL (3.4-5.0); ANION GAP 10 (8-16); BLOOD UREA NITROGEN 36 MG/DL (7-18); BUN/CREATININE RATIO 22.6 (10.0-20.0); CALCIUM 9.2 MG/DL (8.5-10.1); CHLORIDE 106 MMOL/L (99-107); CREATININE 1.59 MG/DL (0.40-0.90); GLUCOSE 158 MG/DL (70-104); POTASSIUM 4.2 MMOL/L (3.5-5.1); SODIUM 137 MMOL/L (135-145); TOTAL CARBON DIOXIDE 21.4 MMOL/L (24-32); eGFR 32 ML/MIN
[2022-07-06 07:22] LABS: BASOPHILS % (AUTO) 0.4 % (0-1); EOSINOPHILS # (AUTO) 0.2 X10'3 (0-0.9); EOSINOPHILS % (AUTO) 5.4 % (0-6); HEMATOCRIT 26.7 % (35.0-45.0); LYMPHOCYTES # (AUTO) 1.4 X10'3 (1.1-4.8); LYMPHOCYTES % (AUTO) 33.8 % (21-51); MEAN CORPUSCULAR HEMOGLOBIN 35.1 PG (27.0-31.0); MEAN CORPUSCULAR HGB CONC 33.7 g/dL (33.0-36.5); MEAN CORPUSCULAR VOLUME 104.2 FL (78-98); MEAN PLATELET VOLUME 7.8 FL (7.4-10.4); MONOCYTES # (AUTO) 0.2 X10'3 (0-0.9); MONOCYTES % (AUTO) 5.7 % (2-12); NEUTROPHILS # (AUTO) 2.2 X10'3 (1.8-7.7); NEUTROPHILS % (AUTO) 54.7 % (42-75); PLATELET COUNT 379 X10'3 (140-440); RED BLOOD COUNT 2.56 X10'6 (4.20-5.60); RED CELL DISTRIBUTION WIDTH 19.8 % (11.5-14.5); WHITE BLOOD COUNT 4.1 X10'3 (4.5-11.0)
[2022-07-06] MEDS: docusate sod 100mg capsule PO SCH (07:51)
[2022-07-06 07:57] VITALS: BP_SYST 128
[2022-07-06] MEDS: pantoprazole 40mg Tablet.DR PO SCH (07:57)
[2022-07-06] MEDS: atorvastatin 10mg tablet PO SCH (07:57)
[2022-07-06] MEDS: HYDROchlorothiazide 25mg tablet PO SCH (07:57)
[2022-07-06] MEDS: folic acid 1mg tablet PO SCH (07:57)
[2022-07-06] MEDS: levetiracetam 250mg tablet PO SCH (07:57)
[2022-07-06] MEDS: lisinopril 20mg tablet PO SCH (07:57)
[2022-07-06] MEDS: mesalamine 1.2gm ER tablet PO SCH (07:57)
[2022-07-06] MEDS: vitamin A & D ointment-NF 1 APPLIC TUBE TP SCH (08:03)
--- NOTE | 2022-07-06 09:36 | NUR ---
DM consult: Patient's A1c has already been addressed, please see previous RD note. Addendum: 07/06/22 at [address] Amended: Links added.
[2022-07-06] MEDS ORDERED: CLIN-91 PO (09:47)
[2022-07-06 09:53] LABS: ANISOCYTOSIS 2+; PLATELET ESTIMATE NORMAL
[2022-07-06 10:00] LABS: ELLIPTOCYTES FEW; SCHISTOCYTES FEW
--- NOTE | 2022-07-06 10:48 | NUR ---
PT DISCHARGED IN STABLE CONDITION, LEFT FACILITY WITH PRIVATE TRANSPORT. IV DC CANUL[facility] INTACT. FOLLOW UP INSTRUCTIONS GIVEN, ALL QUESTIONS ANSWERED. DISCHARGE WOUND CARE PICS DONE BY NICHOLAS OMALLEY. Addendum: 07/06/22 at 1049 by Omaira Rabago RN Amended: Links added.
[2022-07-06] MEDS ORDERED: AVIBACTAM IV SCH (12:00)
[2022-07-06] MEDS ORDERED: NORMAL SALINE IV SCH (12:00)
[2022-07-06] MEDS ORDERED: CEFTAZIDIME IV SCH (12:00)
--- NOTE | 2022-07-06 15:39 | NUR ---
In for wound care. Patient reports she has been discharged and is leaving. She could not fit into her shoes with the kerlix wrap. Removed kerlix and replaced with light wrap. Assisted w/ socks and shoes. Discharged home.
== END 2022-07-06 10:45 | disposition home or self-care (01) | DRG 639 ==
LOC: SUR 3N 13:22
PROVIDERS: ADMIT Internal Medicine; ATTEND Internal Medicine
DX: E11.628 Type 2 diabetes mellitus with other skin complications (principal); E11.40 Type 2 diabetes mellitus with diabetic neuropathy, unspecified; B95.61 Methicillin susceptible Staphylococcus aureus infection as the cause of diseases classified elsewhere; Z60.2 Problems related to living alone; E78.5 Hyperlipidemia, unspecified; S90.934A Unspecified superficial injury of right lesser toe(s), initial encounter; X58.XXXA Exposure to other specified factors, initial encounter; D63.8 Anemia in other chronic diseases classified elsewhere; E11.22 Type 2 diabetes mellitus with diabetic chronic kidney disease; N18.30 Chronic kidney disease, stage 3 unspecified; Z96.619 Presence of unspecified artificial shoulder joint; Z96.659 Presence of unspecified artificial knee joint; I25.10 Atherosclerotic heart disease of native coronary artery without angina pectoris; Z79.899 Other long term (current) drug therapy; Z83.3 Family history of diabetes mellitus; Y93.89 Activity, other specified; Y92.89 Other specified places as the place of occurrence of the external cause; Y99.8 Other external cause status
CPT/HCPCS: 36415; 73718; 80048; 80053; 82948; 83036; 83880; 85007; 85008; 85025; 85651; 87081; A4649; A6196; A6209; A6258; A6446; A6449; G0378; J1610; J1650; J1815; J2270; J2405; J3490; J7040

== ENCOUNTER 2022-10-12 10:53 | Emergency (ER) | payer BC, MEDICARE ==
[~2022-10-12] VITALS: Ht 156.2 cm; Wt 81.8 kg
[~2022-10-12 10:53] MED LIST changes: -DULO-31 PO; -GLIP5TAB26 PO; -LEVE250T PO; +LEVE500T PO; -METF-1203 PO; +SITA50TA PO; -THIA50TA10 PO
[2022-10-12 11:04] VITALS: BP 163/72
== END 2022-10-12 11:47 | disposition home or self-care (01) ==
LOC: ER 10:54
DX: S00.83XA Contusion of other part of head, initial encounter (principal); E11.9 Type 2 diabetes mellitus without complications; M21.372 Foot drop, left foot; N18.9 Chronic kidney disease, unspecified; Z88.8 Allergy status to other drugs, medicaments and biological substances; Z98.890 Other specified postprocedural states; Z79.899 Other long term (current) drug therapy; W18.39XA Other fall on same level, initial encounter; Y93.89 Activity, other specified; Y92.89 Other specified places as the place of occurrence of the external cause; Y99.8 Other external cause status
CPT/HCPCS: 99284

== ENCOUNTER 2024-08-27 11:12 | Inpatient (IN) | payer BC, MEDICARE ==
[~2024-08-27] VITALS: Ht 154.9 cm; Wt 86.4 kg
--- NOTE | 2024-08-27 11:15 | Physician Documentation ---
History of Present Illness ~ Stated Complaint: L FOOT WOUND Time Seen by MD: 11:15 Primary Medical Doctor: Dr. Hassan, [facility] HPI 73 yr old female sent to the ER by wound care after she presented there for a visit today for left foot diabetic ulcer. Per wound care notes, patient has just completed a course of Augmentin and wound has not shown improvement. She did also complete a course of dodycycline x 10 days that was prescribed on 07/13/24. MRI 08/14/24 showed "adjacent soft tissue edema, fluid, and locules of gas involving an area measuring approximately 3.2x3.8x2.0 cm, likely phlegmon or possible abscess." Patient sent here for consideration of admission due to failure of outpatient treatment. Wound culture shows moderate growth of strep aureus and heavy growth of cornybacterium striatum. Patient denies chills, fever, nausea, vomiting, chest pain, dyspnea, or body aches on exam. Tetanus within 5 years?: No Medication Reconciliation Allergies: Coded Allergies: ertapenem (Verified Allergy, Severe, 10/12/22) Encephalopathy Scheduled Atorvastatin Calcium (Atorvastatin Calcium), 1 TAB PO DAILY, (Reported) Benazepril/Hydrochlorothiazide (Benazepril-Hctz 20-25 mg Tab), 1 TAB PO DAILY, (Reported) Folic Acid* (Folic Acid*), 1 MG PO DAILY, (Reported) Gabapentin (Neurontin), 2 CAP PO HS, (Reported) Levetiracetam (Levetiracetam), 1 TAB PO BID, (Reported) Mercaptopurine (PURINETHOL tablet), 1 TAB PO DAILY, (Reported) Mesalamine (Mesalamine), 1 TAB PO QID, (Reported) Pantoprazole Sodium (Pantoprazole Sodium), 1 TAB PO DAILY, (Reported) Sitagliptin Phosphate (Januvia), 1 TAB PO DAILY, (Reported) Sitagliptin Phosphate* (Januvia*), 2 TAB PO DAILY, (Reported) Scheduled PRN Albuterol Sulfate (Proair Hfa), 2 PUFFS PO Q6H PRN for SOB or wheezing, (Reported) Past Medical History Past Medical History: Chronic Kidney Disease, Diabetes, *MUSCULOSKELETAL* Past Surgical History: orthopedic surgeries Review of Systems ROS As stated above in the HPI, otherwise all systems are reviewed and negative. Physical Exam Physical Exam General: Alert, no apparent distress. Neck: Full range of motion. Respiratory: Lungs clear, no respiratory distress. Chest: No accessory muscle use. Cardiovascular: Regular rate and rhythm, no murmurs. Gastrointestinal: Soft, nontender, nondistended. Bowels sounds present. Extremities: Well healed surgical incision surrounds site of previous left great toe amputation. Wound plantar surface of medial forefoot measures 1 cm ovoid with packing in center. Surrounding erythema/swelling measures 4x5 cm. Foot drop/brace left foot. Neurologic: Oriented x4. Psychiatric: Normal mood and affect. Skin: Normal color, warm and dry. No edema, no ecchymosis. Progress Progress Note 1128: Dr. Parker, infectious disease contacted and agrees to consult. Affirms plan for Zosyn IV. Results/Orders Results/Orders Orders - LUCIAN LARIOS REAL ESTATE MANAGEMENT SPECIALIST Urinalysis, Cult If Indicated (08/27/24 11:24) Culture Blood (08/27/24 11:24) * Iv Access / Saline Lock * (08/27/24 11:24) Dressing Orders (08/27/24 11:36) Wound Care Orders (08/27/24 11:36) Page Hospitalist (08/27/24 ) Completed Orders - LUCIAN LARIOS REAL ESTATE MANAGEMENT SPECIALIST Electrocardiogram (08/27/24 11:24) Cbc/Diff (08/27/24 11:24) MG (08/27/24 11:24) Procalcitonin (08/27/24 11:24) Piperacillin/Tazo 3.375gm/50ml (Zosyn 3. (08/27/24 11:25) BMP (08/27/24 11:24) Lacticsepsis (08/27/24 11:24) Liver Panel (08/27/24 11:29) Tetanus/Pertuss/Diph Acell/Pf (Boostrix (08/27/24 11:40) Medications Received in ER Medications (Trade) Dose Ordered Sig/Maribel Route PRN Reason Start Time Stop Time Status Last Admin Dose Admin Piperacillin/ Tazobactam/ Dextrose 50 ml @ 100 mls/hr ONCE ONCE IV 08/27/24 11:25 08/27/24 11:54 DC 08/27/24 12:28 100 MLS/HR (Boostrix vaccine syringe) 0.5 ml ONCE ONCE IMVAC 08/27/24 11:40 08/27/24 11:41 DC 08/27/24 12:28 0.5 ML Vital Signs 08/27/24 08/27/24 11:23 11:28 Temp 98.0 Pulse 58 Resp 16 16 B/P (MAP) 131/65 Pulse Ox 98 O2 Flow Rate 0 Laboratory Tests Test 08/27/24 11:37 08/27/24 11:40 Lactic Acid Level 1.8 White Blood Count 7.2 Red Blood Count 3.03 L Hemoglobin 10.5 L Hematocrit 30.8 L Mean Corpuscular Volume 101.7 H Mean Corpuscular Hemoglobin 34.6 H Mean Corpuscular Hemoglobin Concent 34.0 Red Cell Distribution Width 17.4 H Platelet Count 305 Mean Platelet Volume 8.7 Neutrophils (%) (Auto) 72.2 Lymphocytes (%) (Auto) 14.9 L Monocytes (%) (Auto) 9.7 Eosinophils (%) (Auto) 2.5 Basophils (%) (Auto) 0.7 Neutrophils # (Auto) 5.2 Lymphocytes # (Auto) 1.1 Monocytes # (Auto) 0.7 Eosinophils # (Auto) 0.2 Basophils # (Auto) 0.0 CBC Comment Sodium Level 136 Potassium Level 4.7 Chloride Level 103 Carbon Dioxide Level 22.5 L Anion Gap 11 Blood Urea Nitrogen 41 H Creatinine 1.98 H Estimated GFR/1.73 m2 25 BUN/Creatinine Ratio 20.7 H Glucose Level 165 H Calcium Level 9.6 Magnesium Level 2.0 Total Bilirubin 0.5 Direct Bilirubin 0.1 Aspartate Amino Transf (AST/SGOT) 18 Alanine Aminotransferase (ALT/SGPT) 25 Alkaline Phosphatase 76 Total Protein 7.8 Albumin 3.5 Globulin 4.3 Albumin/Globulin Ratio 0.8 L Procalcitonin 0.06 Chemistry Comments EKG/XRAY/CT/US/VASC/MRI EKG : Additional Comment 1137: EKG shows sinus bradycardia rate of 55. No ectopy. No ST segment elevation. QTC 430 ms. Interpretation by me. Reviewed as "no STEMI" by BECKY Hamilton. Medical Decision Making Differential Dx:Considerations: Include: Abscess, Cellulitis, Dressing change, Healing wound Additional Comment This is a 73-year-old female with a history of diabetes and prior amputation of the left great toe who presents today after being sent by her wound care provider. She denies chills or fever, chest pain or shortness of breath, body aches. She reports that she feels overall well. However, she has had two recent courses of oral antibiotics with persisting wound to the plantar aspect of the left foot, forefoot. In addition, there was mention made of a recent MRI that shows phlegmon versus abscess. Infectious Disease was consulted and agreed to see the patient while she was admitted. Inpatient Medicine agreed to admit the patient. Labs were remarkable for evidence of chronic kidney disease and anemia. These are not significantly different from her previous presentation with labs reviewed from that time. No signs of sepsis, normal lactic acid and procalcitonin. Departure Time of Disposition: 12:45 Disposition: 09 ADMITTED INPATIENT Admitted to Inpatient Unit: yes, to hospitalist Impression: Primary Impression: Wound Additional Impression: Diabetic foot infection Referrals: NO PRIMARY CARE PROVIDER (PCP) Signature Scribe Signature: no scribe Attestation: The note accurately reflects work and decisions made by me.Lucian Burch NP 08/27/24 11:29 LUCIAN LARIOS NP August 27, 2024 11:15
--- NOTE | 2024-08-27 11:39 | ELECTROCARDIOGRAPH REPORT ---
[facility] Test Date: 2024-08-27 Test Time: 11:37:05 Pat Name: ALICE COOPER Department: [facility] Patient ID: [facility]-[id number] Room: [place] [id number] Gender: F Mine Foreman: : 1950 Requested By: LUCIAN LARIOS Order Number: [id number] Reading MD: Dr. Ankush Petty Measurements Intervals [place] Rate: 55 P: 9 AL: 198 QRS: 4 QRSD: 96 T: 32 QT: 449 QTc: 430 Interpretive Statements Sinus bradycardia Baseline wander in lead(s) II,V4 Electronically Signed On 08-28-2024 6:40:[address] Ankush Petty Please click the below link to view image of tracing.
[2024-08-27 11:49] LABS: BASOPHILS % (AUTO) 0.7 % (0-1); EOSINOPHILS # (AUTO) 0.2 X10'3 (0-0.9); EOSINOPHILS % (AUTO) 2.5 % (0-6); HEMATOCRIT 30.8 % (35.0-45.0); HEMOGLOBIN 10.5 g/dl (12.0-16.0); LYMPHOCYTES # (AUTO) 1.1 X10'3 (1.1-4.8); LYMPHOCYTES % (AUTO) 14.9 % (21-51); MEAN CORPUSCULAR HEMOGLOBIN 34.6 PG (27.0-31.0); MEAN CORPUSCULAR VOLUME 101.7 FL (78-98); MEAN PLATELET VOLUME 8.7 FL (7.4-10.4); MONOCYTES # (AUTO) 0.7 X10'3 (0-0.9); MONOCYTES % (AUTO) 9.7 % (2-12); NEUTROPHILS # (AUTO) 5.2 X10'3 (1.8-7.7); NEUTROPHILS % (AUTO) 72.2 % (42-75); PLATELET COUNT 305 X10'3 (140-440); RED BLOOD COUNT 3.03 X10'6 (4.20-5.60); RED CELL DISTRIBUTION WIDTH 17.4 % (11.5-14.5); WHITE BLOOD COUNT 7.2 X10'3 (4.5-11.0)
[2024-08-27 12:06] LABS: ALANINE AMINOTRANSFERASE 25 U/L (12-78); ALBUMIN 3.5 G/DL (3.4-5.0); ALBUMIN/GLOBULIN RATIO 0.8 (1.1-1.5); ALKALINE PHOSPHATASE 76 IU/L (46-116); ASPARTATE AMINO TRANSFERASE 18 U/L (10-37); BILIRUBIN,DIRECT 0.1 MG/DL (0-0.3); BILIRUBIN,TOTAL 0.5 MG/DL (0.1-1.0); BLOOD UREA NITROGEN 41 MG/DL (7-18); BUN/CREATININE RATIO 20.7 (10.0-20.0); CALCIUM 9.6 MG/DL (8.5-10.1); CREATININE 1.98 MG/DL (0.40-0.90); GLUCOSE 165 MG/DL (70-104); TOTAL CARBON DIOXIDE 22.5 MMOL/L (24-32); TOTAL PROTEIN 7.8 G/DL (6.4-8.2); eCRCL 19 ML/MIN; eGFR 25 ML/MIN
[2024-08-27 12:08] LABS: ANION GAP 11 (8-16); CHLORIDE 103 MMOL/L (99-107); POTASSIUM 4.7 MMOL/L (3.5-5.1); SODIUM 136 MMOL/L (135-145)
[2024-08-27] MEDS: TETanus/Pertussis (Acell)/Diphther VAC/PF (Tdap-Adult) 0.5ml syringe IMVAC ONE (12:28)
[2024-08-27] MEDS: piperacillin/tazo 3.375gm/50ml 50 ML IV ONE (12:28)
[2024-08-27] MEDS ORDERED: ondansetron/PF 4mg/2ml inj IV PRN (12:30)
[2024-08-27] MEDS ORDERED: magnesium sulf-water 2g/50mL 50 ML IV PRN (12:30)
[2024-08-27] MEDS ORDERED: magnesium Cl slow-release 64mg tablet PO PRN (12:30)
[2024-08-27] MEDS ORDERED: potassium Cl 20 mEq SR tablet PO PRN ×2 (12:30)
[2024-08-27] MEDS ORDERED: acetaminophen 325mg tablet PO PRN (12:30)
[2024-08-27] MEDS ORDERED: magnesium hydroxide 30ml (MOM) UD suspension PO PRN (12:30)
[2024-08-27] MEDS ORDERED: magnesium sulf-water 4G/100mL 100 ML IV PRN (12:30)
[2024-08-27] MEDS ORDERED: mag hydrox/Alum hydrox/simeth 30ml oral suspension PO PRN (12:30)
[2024-08-27] MEDS ORDERED: morphine 2 MG/ML inj. syringe IV PRN ×2 (12:30)
[2024-08-27] MEDS ORDERED: potassium Cl 40MEQ/1/2NS 520ml 520 ML IV PRN (12:30)
[2024-08-27] MEDS ORDERED: dextrose 50%-water 50ml dispensing syringe IV PRN ×2 (12:40)
[2024-08-27] MEDS ORDERED: DEXTROSE 15 GM of carb/4 tabs (each vial/BOTTLE has 4 tablets) PO PRN ×2 (12:40)
[2024-08-27] MEDS ORDERED: glucagon, human recombinant 1mg kit SUBCUT PRN (12:40)
[2024-08-27] MEDS: INSULIN LISPRO 100 UNIT/ML INSULN.PEN MULTI-DOSE SQ SCH ×2 (13:00→17:00)
[2024-08-27 13:32] LABS: HEMOGLOBIN A1C 7.5 % (4.5-6.2)
[2024-08-27 14:48] LABS: BILIRUBIN,URINE NEGATIVE (Neg); CLARITY,URINE CLEAR (Clear); COLOR,URINE YELLOW (Yellow); GLUCOSE, URINE NEGATIVE (Neg); KETONES,URINE NEGATIVE (Neg); LEUKOCYTE ESTERASE ,URINE NEGATIVE (Neg); NITRITES, URINE NEGATIVE (Neg); OCCULT BLOOD,URINE NEGATIVE (Neg); PROTEIN,URINE 30 mg/dl (Neg); UROBILINOGEN,URINE 0.2 E.U/dL (0.2-1.0)
[2024-08-27 15:00] LABS: UA COLLECTION TYPE CLN CATCH MIDSTREAM
[2024-08-27 15:03] LABS: BACTERIA,URINE NONE SEEN /HPF (Neg); RBC,URINE NONE SEEN /HPF (0-2); SQUAMOUS EPITHELIAL CELL,UR NONE SEEN /LPF (FEW); WBC,URINE NONE SEEN /HPF (0-4)
[2024-08-27] MEDS ORDERED: LISI1TAB49 PO (17:38)
[2024-08-27 18:00] VITALS: BP 140/72; PULSE 59; RESP 16; TEMP 97.7; O2SAT 100
--- NOTE | 2024-08-27 18:44 | HISTORY AND PHYSICAL-Residence ---
History & Physical Providers to CC Resident Creating Document: SHARAD MELSTANLEY ANNA CC: CHELA FORRESTER MD ~ History of Present Illness Primary Medical Doctor: Dr. Barrett, [facility] Reason for Admit\Complaint: Infected wound History of Present Illness Patient is a 73-year-old female with history of type 2 diabetes, hypertension, left dropped foot and chronic diabetic wound who came to the ED from a wound care for management of infected diabetic wound. Patient reports that she has been attending wound care for the past 2-1/2 years for nonhealing diabetic wound in left foot. For the past 3 weeks, patient has been experiencing increasing swelling and tenderness, as well as increasing drainage which she describes as clear/bloody. Cultures were obtained the wound care, and she was given a trial of doxycycline without improvement. She states that she underwent an MRI and was given a round of Augmentin. Patient attended Wound Care today for follow up, and in view of worsening of the wound she was referred here for further management. Allergies: Coded Allergies: ertapenem (Verified Allergy, Severe, 10/12/22) Encephalopathy Home Medications Home Medications Active Reported Lisinopril-Hctz 10-12.5 mg Tab (Lisinopril/Hydrochlorothiazide) 10 Mg-12.5 Mg Tablet 1 Tab PO DAILY Januvia (Sitagliptin Phosphate) 50 Mg Tablet 1 Tab PO DAILY Levetiracetam 500 Mg Tablet 1 Tab PO BID Neurontin (Gabapentin) 300 Mg Capsule 2 Cap PO HS PURINETHOL tablet (Mercaptopurine) 50 Mg Tablet 1 Tab PO DAILY 30 Days Proair Hfa (Albuterol Sulfate) 1 Puff Inh 2 Puffs PO Q6H PRN Pantoprazole Sodium 40 Mg Tablet.dr 1 Tab PO DAILY Folic Acid* (Folic Acid) Y Tab 1 Mg PO DAILY 30 Days Benazepril-Hctz 20-25 mg Tab (Benazepril/HCTZ) 1 Each Tablet 1 Tab PO DAILY Mesalamine 1.2 Gm Tablet.dr 1 Tab PO QID Januvia* (Sitagliptin Phosphate*) 50 Mg Tablet 2 Tab PO DAILY Atorvastatin Calcium 10 Mg Tablet 1 Tab PO DAILY 30 Days Past Medical History Past Medical History Type 2 diabetes Hypertension Chronic diabetic wounds Left dropped foot Past Surgical History Surgical History Comment Left big toe amputation Left knee replacement Hysterectomy Cholecystectomy Left wrist ORIF Family History Family History: FH: colon cancer MOTHER FH: lung cancer FATHER FH: myocardial infarction FATHER FH: stroke MOTHER FH: type 2 diabetes Uncle Cousin Past Social History Smoking: Non-Smoker Alcohol Use: Occasionally Drug Use: None Lives with: Alone Lives In: Home Occupation: employed (Book keeping) ROS ROS All systems were reviewed and found negative except for pertinent positives mentioned in HPI Exam Vitals: Vital Signs Date Time Temp Pulse Resp B/P (MAP) Pulse Ox O2 Delivery O2 Flow Rate FiO2 08/27/24 11:28 16 08/27/24 11:23 98.0 58 98 0 General: General: awake, alert oriented to place, time, and person HEENT: No pallor present, no icterus, moist mucous membranes Neck: No masses and tenderness Resp: Unlabored. Lungs clear to auscultation bilaterally. Cardiovascular: Regular Rate and rhythm, normal S1 and S2 without murmur, rub or gallop Abdomen: Soft and non tender no organomegaly, no guarding and rigidity, bowel sounds present Neuro: No weakness in the upper and lower limb muscles, power of the muscles 5/5 bilateral upper and lower muscles, knee reflex present bilaterally. Cranial nerves intact Extremities: She has a 1 x 1 cm open wound in left foot, with significant surrounding swelling with fluctuance. Amputated left great toe. No cyanosis,clubbing or edema Skin: Warm and Dry. No lesions Psych: Normal affect Diagnostic Data Last Recorded Lab Results: 08/27/24 1140 08/27/24 1140 Advance Care Planning Advanced Care plannin - 30 Minutes Additional Plan Patient is a 73-year-old female with history of type 2 diabetes, hypertension, left dropped foot and chronic diabetic wound admitted for management of infected diabetic wound. Infected chronic diabetic wound Type 2 diabetes Patient with chronic left foot diabetic wound, following with wound care, admitted for further management of infected diabetic wound MRI on 08/14/2024 showed 1. Wound at the plantar aspect of the midfoot near the 1st metatarsal amputation stump with adjacent soft tissue edema, fluid, and gas, possible phlegmon or abscess. Limited evaluation for abscess on noncontrast enhanced exam. Correlate with clinical findings. If clinically indicated, postcontrast imaging could be obtained. 2. No evidence for osteomyelitis. White count is unremarkable, procalcitonin is 0.[address] Parker consulted. Recommended continue IV Zosyn Wound care consult Pending CT of left foot Pending ESR Will consider ortho consult depending on imaging Hold Wilfredo Sosa Start Lantus 10 units, lispro 3 units, low-dose supplemental CKD III Likely diabetic nephropathy Creatinine 1.9 Baseline 1.8 from earlier this month Continue monitoring BMP Hypertension Hyperlipidemia Continue lisinopril/hydrochlorothiazide. Pending med rec Code Status: Full code DVT prophylaxis: Heparin Analgesia/sedation: Morphine Nutrition: Carb controlled PT: Ordered Prognosis: Guarded Disposition: Admit to surgical floor. Continue medical management Stanley Zhang MD Internal Medicine Resident PGY-1 Date of Service: August 27, 2024 Billing Provider: CHELA FORRESTER MD, LEONARDO LUIS August 27, 2024 18:44
[2024-08-27 20:00] VITALS: RESP 18; O2SAT 98
[2024-08-27] MEDS: K and/or MAG REPLACEMENT MC SCH (20:00)
--- NOTE | 2024-08-27 20:14 | RADIOLOGY REPORT ---
Procedure: CT CT LOWER EXTREMITY 08/27/2024 07:45 PM Indication: Left foot infected wound Comparison Study: MR MRI LOWER EXTREMITY LEFT on DOS: 08/14/24, MRI LOWER EXTREMITY RIGHT on DOS: , MRI LOWER EXTREMITY LEFT on DOS: 05/08/22 Technique: Axial images left foot were obtained without IV contrast and reformatted in coronal and sa gittal planes. All CT scans at this medical facility are performed using dose modulation techniques a s appropriate to a performed exam including the following: Automated exposure control was utilized; a djustment of the MA and/or KV according to patient size; and use of iterative reconstruction techniqu e. CT Dose: CTDI volume is 14.4 mGy. Dose-length product is 402 mGy*cm Findings/impression: An ulcer seen in the plantar aspect of the foot at the level of the amputated 1st metatarsal with und erlying fluid and air collection roughly measuring 4 cm in transverse, 4 cm in AP and 1.6 cm in thick ness. The margins are poorly seen without IV contrast. Diffuse surrounding subcutaneous edema noted. The collection extends to the underlying medial cuneiform but no definite cortical erosion or lytic o sseous lesion is seen to suggest acute osteomyelitis at this time. Recommend clinical correlation. Follow-up by MRI may be considered if clinically indicated. Recommend drainage of the fluid collectio n.
[2024-08-27 22:00] VITALS: BP 123/40; PULSE 55; RESP 18; TEMP 97.7; O2SAT 98
[2024-08-27] MEDS: docusate sod 100mg capsule PO SCH (22:25)
[2024-08-27] MEDS: piperacillin/tazo 4.5gm/100ml 100 ML IV SCH (22:25)
[2024-08-27] MEDS: heparin, porcine 5000 units/ml vial SQ SCH (22:26)
[2024-08-27] MEDS: insulin glargine (Lantus) pen - multi-dose SQ SCH (22:35)
[2024-08-28 04:46] LABS: BASOPHILS # (AUTO) 0.1 X10'3 (0-0.2); BASOPHILS % (AUTO) 0.9 % (0-1); EOSINOPHILS # (AUTO) 0.2 X10'3 (0-0.9); EOSINOPHILS % (AUTO) 3.4 % (0-6); HEMATOCRIT 29.3 % (35.0-45.0); HEMOGLOBIN 9.9 g/dl (12.0-16.0); LYMPHOCYTES # (AUTO) 0.9 X10'3 (1.1-4.8); MEAN CORPUSCULAR HEMOGLOBIN 34.1 PG (27.0-31.0); MEAN CORPUSCULAR HGB CONC 33.7 g/dL (33.0-36.5); MEAN CORPUSCULAR VOLUME 101.3 FL (78-98); MEAN PLATELET VOLUME 8.6 FL (7.4-10.4); MONOCYTES # (AUTO) 0.6 X10'3 (0-0.9); MONOCYTES % (AUTO) 11.1 % (2-12); NEUTROPHILS # (AUTO) 3.9 X10'3 (1.8-7.7); NEUTROPHILS % (AUTO) 68.6 % (42-75); PLATELET COUNT 261 X10'3 (140-440); RED BLOOD COUNT 2.89 X10'6 (4.20-5.60); RED CELL DISTRIBUTION WIDTH 17.5 % (11.5-14.5); WHITE BLOOD COUNT 5.8 X10'3 (4.5-11.0)
[2024-08-28 05:01] LABS: ALANINE AMINOTRANSFERASE 25 U/L (12-78); ALBUMIN 2.9 G/DL (3.4-5.0); ALBUMIN/GLOBULIN RATIO 0.7 (1.1-1.5); ALKALINE PHOSPHATASE 63 IU/L (46-116); ANION GAP 11 (8-16); ASPARTATE AMINO TRANSFERASE 18 U/L (10-37); BILIRUBIN,TOTAL 0.6 MG/DL (0.1-1.0); BLOOD UREA NITROGEN 36 MG/DL (7-18); BUN/CREATININE RATIO 16.4 (10.0-20.0); CALCIUM 9.5 MG/DL (8.5-10.1); CHLORIDE 105 MMOL/L (99-107); GLUCOSE 143 MG/DL (70-104); MAGNESIUM 1.9 MG/DL (1.5-2.4); POTASSIUM 4.6 MMOL/L (3.5-5.1); SODIUM 140 MMOL/L (135-145); TOTAL CARBON DIOXIDE 24.4 MMOL/L (24-32); TOTAL PROTEIN 6.8 G/DL (6.4-8.2); eCRCL 17 ML/MIN; eGFR 22 ML/MIN
[2024-08-28 06:30] VITALS: BP 104/45; PULSE 64; RESP 18; TEMP 97.7; O2SAT 96
[2024-08-28 08:50] LABS: CHOL/HDL RATIO 3.8 (0.00-4.99); CHOLESTEROL 167 MG/DL (0-200); HDL CHOLESTEROL 44 MG/DL (35-60); LDL CHOLESTEROL 91 MG/DL (50-100); THYROID STIMULATING HORMONE 1.47 ulU/ml (0.34-4.50); TRIGLYCERIDES 221 MG/DL (20-135)
[2024-08-28 10:00] VITALS: BP 128/61; PULSE 65; RESP 16; TEMP 97.8; O2SAT 96
[2024-08-28] MEDS: linezolid 600mg tablet PO SCH (13:11)
--- NOTE | 2024-08-28 14:36 | PROGRESS NOTE- Residence ---
Progress Note - Resident Providers to CC Resident Creating Document: SHARAD LEALSTANLEYCHERYL CASTILLO CC: CHELA FORRESTER MD ~ Antibiotic Timeout Antibiotic Ordered?: Yes Subjective Patient was seen and examined at bedside today. She is feeling well, wound care at bedside. She denies any fevers, chills, chest pain, palpitations or any other subjective symptoms. Objective Vital Signs Date Time Temp Pulse Resp B/P (MAP) Pulse Ox O2 Delivery O2 Flow Rate FiO2 08/28/24 06:30 97.7 64 18 104/45 (64) 96 Room Air 08/27/24 11:23 0 Result Diagram: 08/28/242 08/28/24421 General: awake, alert oriented to place, time, and person HEENT: No pallor present, no icterus, moist mucous membranes Neck: No masses and tenderness Resp: Unlabored. Lungs clear to auscultation bilaterally. Cardiovascular: Regular Rate and rhythm, normal S1 and S2 without murmur, rub or gallop Abdomen: Soft and non tender no organomegaly, no guarding and rigidity, bowel sounds present Neuro: No weakness in the upper and lower limb muscles, power of the muscles 5/5 bilateral upper and lower muscles, knee reflex present bilaterally. Cranial nerves intact Extremities: She has a 1 x 1 cm open wound in left foot, with significant surrounding swelling with fluctuance. Amputated left great toe. No cyanosis,clubbing or edema Skin: Warm and Dry. No lesions Psych: Normal affect Assessment Assessment Patient is a 73-year-old female with history of type 2 diabetes, hypertension, left dropped foot and chronic diabetic wound admitted for management of infected diabetic wound. Plan Plan Infected chronic diabetic wound in left foot Left foot abscess Rule out osteomyelitis Patient with chronic left foot diabetic wound, following with wound care, admitted for further management of infected diabetic wound MRI on 08/14/2024 showed 1. Wound at the plantar aspect of the midfoot near the 1st metatarsal amputation stump with adjacent soft tissue edema, fluid, and gas, possible phlegmon or abscess. Limited evaluation for abscess on noncontrast enhanced exam. Correlate with clinical findings. If clinically indicated, postcontrast imaging could be obtained. 2. No evidence for osteomyelitis. CT of lower extremity shows nn ulcer seen in the plantar aspect of the foot at the level of the amputated 1st metatarsal with underlying fluid and air collection roughly measuring 4 cm in transverse, 4 cm in AP and 1.6 cm in thickness. The margins are poorly seen without IV contrast. Diffuse surrounding subcutaneous edema noted. The collection extends to the underlying medial cuneiform but no definite cortical erosion or lytic osseous lesion is seen to suggest acute osteomyelitis at this time. White count is unremarkable, procalcitonin is 0.06 ESR 92 Pending repeated MRI Continue Zosyn, day 2 and linezolid, day 1. Dr. Parker managing Continue wound care Type 2 diabetes A1c 7.5 Hold Januvia, Ozempic Start Lantus 10 units, lispro 3 units, low-dose supplemental CKD III Likely diabetic nephropathy Creatinine 1.9 Baseline 1.8 from earlier this month Continue monitoring BMP Hypertension Hyperlipidemia Continue lisinopril/hydrochlorothiazide. Pending med rec Code Status: Full code DVT prophylaxis: Heparin Analgesia/sedation: Morphine Nutrition: Carb controlled PT: Ordered Prognosis: Guarded Disposition: Continue care in surgical floor. Continue recommendations per ID and Podiatry Stanley Leal MD Internal Medicine Resident PGY-1 Date of Service: August 28, 2024 Billing Provider: CHELA FORRESTER MD, LEONARDO LUIS August 28, 2024 14:36
--- NOTE | 2024-08-28 15:36 | RADIOLOGY REPORT ---
EXAM: MR MRI LOWER EXTREMITY LEFT HISTORY: Possible left foot osteo COMPARISON: CT CT LOWER EXTREMITY on DOS: 08/27/24, MR MRI LOWER EXTREMITY LEFT on DOS: 08/14/24, MRI LO WER EXTREMITY RIGHT on DOS: 07/04/22 TECHNIQUE: Multiplanar, multisequence MRI was performed. FINDINGS: A large ulcer is seen of the plantar aspect of the foot in the region of the amputated 1st metatarsal near the medial cuneiform measuring 1.2 cm in depth and 0.8 cm in transverse. Extensive surrounding cellulitis subcutaneous edema/phlegmon noted. A complex, 1.2 x 1.2 cm subcutaneous fluid collection noted on the medial aspect of this ulcer that could be an abscess, seroma or hematoma. Underneath th e ulceration, there is the stump of the flexor hallucis longus with mild fluid distention of the tend on sheath suggesting tenosynovitis. The underlying medial cuneiform is normal in signal without bone marrow edema, cortical erosion or periosteal edema. Diffuse fatty atrophy of the plantar and inteross eous musculature noted. The extensor tendons and flexor digitorum tendons are unremarkable. The peron eal longus tendon is unremarkable. The plantar fascia is disrupted by the above-mentioned ulcer moder ate surrounding edema noted. IMPRESSION: Large plantar ulcer with extensive surrounding cellulitis and subcutaneous edema level of the amputat ed 1st metatarsal slightly distal to the medial cuneiform without extension to the underlying bone an d no evidence of osteomyelitis at this time. A 1.2 cm subcutaneous fluid collection medial to the ulc er noted that may represent an abscess, seroma or hematoma. There is tenosynovitis of the stump of th e flexor hallucis longus.
[2024-08-28 18:00] VITALS: BP 150/73; PULSE 74; RESP 16; TEMP 97.4; O2SAT 99
--- NOTE | 2024-08-28 19:48 | CONSULTATION REPORT ---
History of Present Illness Providers to CC ~ Reason for Admit\Admit Dx: Infected wound Refering MD: Dr. Barrett, [facility] History of Present Illness abscess left foot MRi shows superficial abscess with no communication to deep structures and no underlying osteo Allergies: Coded Allergies: ertapenem (Verified Allergy, Severe, 10/12/22) Encephalopathy Home Medications Home Medications Active Reported Lisinopril-Hctz 10-12.5 mg Tab (Lisinopril/Hydrochlorothiazide) 10 Mg-12.5 Mg Tablet 1 Tab PO DAILY Januvia (Sitagliptin Phosphate) 50 Mg Tablet 1 Tab PO DAILY Levetiracetam 500 Mg Tablet 1 Tab PO BID Neurontin (Gabapentin) 300 Mg Capsule 2 Cap PO HS PURINETHOL tablet (Mercaptopurine) 50 Mg Tablet 1 Tab PO DAILY 30 Days Proair Hfa (Albuterol Sulfate) 1 Puff Inh 2 Puffs PO Q6H PRN Pantoprazole Sodium 40 Mg Tablet. 1 Tab PO DAILY Folic Acid* (Folic Acid) Y Tab 1 Mg PO DAILY 30 Days Benazepril-Hctz 20-25 mg Tab (Benazepril/HCTZ) 1 Each Tablet 1 Tab PO DAILY Mesalamine 1.2 Gm Tablet. 1 Tab PO QID Januvia* (Sitagliptin Phosphate*) 50 Mg Tablet 2 Tab PO DAILY Atorvastatin Calcium 10 Mg Tablet 1 Tab PO DAILY 30 Days Past Family History Family History: FH: colon cancer MOTHER FH: lung cancer FATHER FH: myocardial infarction FATHER FH: stroke MOTHER FH: type 2 diabetes Uncle Cousin Physical Exam Last Vital Signs Recorded: Temperature: 97.8, Source: Oral, Heart Rate: 65, Respiratory Rate: 16, BP: 128/61, Pulse Oximetry: 96, Weight: 86.360 Back wound plantar left foot with fluctuant area dorsal medial to wound - wound does not probe deep Results Diagram Lab Result Diagram: 08/28/2442108/28/24421 Assessment/Plan Additional Plan pt seen and evaluated bedisde I&D performed pt to have wound care perform betadine wet to dry dressings, pt ok for DC with follow-up in my office ORIANA CURRAN DPM August 28, 2024 19:48
--- NOTE | 2024-08-28 19:59 | OPERATIVE REPORT ---
DATE OF SURGERY: 08/28/2024 DICTATING PHYSICIAN: Bc Jimenez DPM PROCEDURE LOCATION: Bedside. PREOPERATIVE DIAGNOSIS: Superficial abscess and wound to left plantar medial foot. POSTOPERATIVE DIAGNOSIS: Superficial abscess and wound to left plantar medial foot. PROCEDURE: Incision and drainage, left foot. SPECIMENS: None. HEMOSTASIS: None. ESTIMATED BLOOD LOSS: 5 mL. COMPLICATIONS: None. FINDINGS: An abscess with approximately 2 mL of purulent material were expressed. PROCEDURE: The patient was seen in her bed in the hospital room. The imaging findings along with my clinical findings were discussed with the patient in detail. Discussed surgical I and D versus bedside I and D. The patient chooses and agrees with bedside I and D due to her being complete neuropathic. The patient gave me verbal consent to perform the procedure. At this point in time, the left foot was then scrubbed with Betadine solution, draped, and an 11-blade was utilized to make an approximately 2 cm incision to the medial aspect of the wound to the plantar left foot in the area consistent with the abscess on MRI. Scissors were then utilized to bluntly dissect out the wound until the abscess pocket was discovered. Approximately 2 mL of purulent material was expressed from the abscess. The site was then copiously irrigated with Betadine solution and saline. The site was then packed with a Betadine-soaked gauze and a Betadine wet-to-dry dressing was applied. The patient was completely neuropathic and felt no pain. She tolerated the procedure well. Bc Jimenez DPM TID: [id number] RECEIPT: [id number] [facility]
[2024-08-28 20:00] VITALS: RESP 16; O2SAT 99
[2024-08-28 22:00] VITALS: BP 135/52; PULSE 67; RESP 18; TEMP 98; O2SAT 98
--- NOTE | 2024-08-28 23:52 | CONSULTATION ---
DATE OF CONSULTATION: 08/28/2024 DICTATING PHYSICIAN: Sheng Parker MD REASON FOR CONSULTATION: I am seeing the patient at the request of Dr. Milian for evaluation of a left diabetic foot infection. HISTORY OF PRESENT ILLNESS: The patient is a 73-year-old female with diabetes mellitus type 2 that is under good control and was referred to this hospital for admission from [facility] due to worsening infection of her left foot. She is actually being seen by me in the past for treatment of a right foot infection back in 2021 and 2022. She states that her right foot is actually doing quite well. She does have an open wound at the plantar aspect of her left foot with some swelling of the associated soft tissue. She has required amputation of the left great toe in the past. According to the Wound Clinic, she had been taking Augmentin and doxycycline as an outpatient. Recent cultures have demonstrated multiple gram-positives including MSSA, Corynebacterium striatum and Streptococcus mitis/oralis. She does have a new culture pending. I do not believe she has been seen by Podiatry or Orthopedic Surgery. PAST MEDICAL HISTORY: * Diabetes mellitus type 2. * Hypertension. * Dyslipidemia. * Peripheral neuropathy. * Chronic kidney disease with a creatinine currently around 2. * Left drop foot. PAST SURGICAL HISTORY: * Left great toe amputation. * Hysterectomy. * Cholecystectomy. * She has also required a few other orthopedic procedures. ALLERGIES: ERTAPENEM CAUSES ENCEPHALOPATHY. MEDICATIONS: * Zosyn. * Insulin glargine. * Subcutaneous heparin. * Colace. * Humalog. FAMILY HISTORY: Noncontributory. SOCIAL HISTORY: She lives up in [place]. She still works. She is a . She does not smoke or drink alcohol. PHYSICAL EXAMINATION: VITAL SIGNS: She is afebrile with stable vital signs. GENERAL: She is a very pleasant elderly female, lying in bed, looking stable. HEENT: Sclerae anicteric. Mouth is clear. NECK: Supple. LUNGS: Clear to auscultation bilaterally. HEART: Regular rate and rhythm. ABDOMEN: Soft and nontender. EXTREMITIES: No edema . She has a good distal pulse at the left foot. There is no wound at the right foot. At the left foot, she has an open wound at the plantar aspect that is currently packed. She has soft tissue swelling medially at the arch. LABORATORY DATA: Her white blood cell count is 5800, hemoglobin 10, platelets 261,000. Creatinine is 2.2 and rising. Hemoglobin A1c is 7.5%. Blood cultures are negative. New wound culture is pending. MRI performed on 08/14 does show evidence of phlegmon/abscess with no evidence of osteomyelitis. She had a CT scan performed when she came back into the hospital and she does have a collection of fluid and air measuring at least 4 cm at the plantar aspect of the foot medially. IMPRESSION: * Left diabetic foot infection with no clear evidence of osteomyelitis. She does have suspected abscess at the affected site. Gram positives have been identified on culture. Corynebacterium striatum has not been covered with recent antibiotics. * Diabetes mellitus type 2 that is under decent control. * Peripheral neuropathy with left drop foot. * Chronic kidney disease, likely stage 3. PLAN: She will be started on linezolid. Zosyn will continue for now. I will follow up her new cultures. She will continue with aggressive wound care. I do think she needs to be seen by either Orthopedic Surgery or Podiatry to discuss potential debridement/drainage. I will continue to follow her closely and I thank you for allowing me to participate in her care. Sheng Parker MD TID: [id number] RECEIPT: [id number] NICKIE/BEN
[2024-08-29 06:22] LABS: BASOPHILS % (AUTO) 0.5 % (0-1); EOSINOPHILS # (AUTO) 0.2 X10'3 (0-0.9); EOSINOPHILS % (AUTO) 2.5 % (0-6); HEMATOCRIT 29.4 % (35.0-45.0); HEMOGLOBIN 10.1 g/dl (12.0-16.0); LYMPHOCYTES % (AUTO) 15.7 % (21-51); MEAN CORPUSCULAR HEMOGLOBIN 34.6 PG (27.0-31.0); MEAN CORPUSCULAR HGB CONC 34.4 g/dL (33.0-36.5); MEAN CORPUSCULAR VOLUME 100.7 FL (78-98); MEAN PLATELET VOLUME 9.2 FL (7.4-10.4); MONOCYTES # (AUTO) 0.6 X10'3 (0-0.9); MONOCYTES % (AUTO) 9.6 % (2-12); NEUTROPHILS # (AUTO) 4.4 X10'3 (1.8-7.7); NEUTROPHILS % (AUTO) 71.7 % (42-75); PLATELET COUNT 256 X10'3 (140-440); RED BLOOD COUNT 2.92 X10'6 (4.20-5.60); RED CELL DISTRIBUTION WIDTH 16.8 % (11.5-14.5); WHITE BLOOD COUNT 6.2 X10'3 (4.5-11.0)
[2024-08-29 06:27] LABS: ALANINE AMINOTRANSFERASE 24 U/L (12-78); ALBUMIN/GLOBULIN RATIO 0.7 (1.1-1.5); ALKALINE PHOSPHATASE 64 IU/L (46-116); ANION GAP 10 (8-16); ASPARTATE AMINO TRANSFERASE 21 U/L (10-37); BILIRUBIN,TOTAL 0.4 MG/DL (0.1-1.0); BLOOD UREA NITROGEN 38 MG/DL (7-18); BUN/CREATININE RATIO 16.2 (10.0-20.0); CALCIUM 9.7 MG/DL (8.5-10.1); CHLORIDE 103 MMOL/L (99-107); CREATININE 2.35 MG/DL (0.40-0.90); GLUCOSE 178 MG/DL (70-104); MAGNESIUM 1.9 MG/DL (1.5-2.4); POTASSIUM 4.6 MMOL/L (3.5-5.1); SODIUM 137 MMOL/L (135-145); TOTAL PROTEIN 7.1 G/DL (6.4-8.2); eCRCL 16 ML/MIN; eGFR 20 ML/MIN
[2024-08-29 06:32] VITALS: BP 125/51; PULSE 62; RESP 14; TEMP 97.6; O2SAT 97
[2024-08-29 08:00] VITALS: RESP 16; O2SAT 99
[2024-08-29] MEDS ORDERED: AMOX-580 PO (10:13)
[2024-08-29] MEDS ORDERED: LINE600T14 PO (10:13)
--- NOTE | 2024-08-29 10:29 | DISCHARGE SUMMARY-Residence ---
Discharge Summary Providers to CC Resident Creating Document: CHACORTATANOERICKDAO ~ Discharge Summary Admission Diagnosis: Infected dibetic wound Hospital Course DATE OF ADMISSION: August 27, 2024 DATE OF DISCHARGE: August 29, 2024 Discharge Diagnosis\Comment: Infected chronic diabetic wound in left foot Left foot abscess - Ruled out osteomyelitis Type 2 diabetes CKD III Likely diabetic nephropathy Hypertension Hyperlipidemia Operations\Procedures: Incision and debridement Consultants: Dr. Jimenez Complications: None Condition on DC: Stable New Medications: Amox Tr/Potassium Clavulanate 875/125 MG (Augmentin 875/125 MG) 875 Mg-125 Mg Tablet 10 TAB PO BID, #20 TAB Linezolid (Linezolid) 600 Mg Tablet 600 MG PO Q12H for 14 Days, #28 TAB Continued Medications: Albuterol Sulfate (Proair Hfa) 1 Puff Inh 2 PUFFS PO Q6H PRN for SOB or wheezing Atorvastatin Calcium (Atorvastatin Calcium) 10 Mg Tablet 1 TAB PO DAILY for 30 Days, #30 TAB Benazepril/Hydrochlorothiazide (Benazepril-Hctz 20-25 mg Tab) 1 Each Tablet 1 TAB PO DAILY Folic Acid* (Folic Acid*) Y Tab 1 MG PO DAILY for 30 Days, #30 TAB Gabapentin (Neurontin) 300 Mg Capsule 2 CAP PO HS Levetiracetam (Levetiracetam) 500 Mg Tablet 1 TAB PO BID Lisinopril/Hydrochlorothiazide (Lisinopril-Hctz 10-12.5 mg Tab) 10 Mg-12.5 Mg Tablet 1 TAB PO DAILY Mercaptopurine (PURINETHOL tablet) 50 Mg Tablet 1 TAB PO DAILY for 30 Days, #30 TAB Mesalamine (Mesalamine) 1.2 Gm Tablet.dr 1 TAB PO QID Pantoprazole Sodium (Pantoprazole Sodium) 40 Mg Tablet.dr 1 TAB PO DAILY Sitagliptin Phosphate (Januvia) 50 Mg Tablet 1 TAB PO DAILY, TAB Sitagliptin Phosphate* (Januvia*) 50 Mg Tablet 2 TAB PO DAILY Discharge Summary: The patient was admitted for further management of a chronic infected diabetic wound on the left foot. MRI of the foot on August 1412/2024 showed a wound at the plantar aspect of the midfoot near the 1st metatarsal amputation stump with surrounding soft tissue edema, fluid, and gas suggestive of possible phlegmon or abscess. A CT scan during hospital stay revealed an ulcer at the same side with an underlying fluid and air collection measuring approximately 4 cm. ESR was elevated. However, MRI ruled out osteomyelitis. Patient was treated with Zosyn and linezolid during the hospital stay. Tail Puller was consulted, and Dr. Back performed incision and debridement, with outpatient follow up arranged. Additionally, the patient had type 2 diabetes with A1c of 7.5, and was managed using the hospital's hyperglycemia protocol. He also had stage III chronic disease, likely due to diabetic nephropathy with creatinine of 1.9, along with hypertension and hyperlipidemia, managed with lisinopril and hydrochlorothiazide. Discharge Course: The patient is stable. She does not complain of any pain. She is ready to go home. She was discharged with the following instructions: Follow up with Dr. Jimenez in 1 week; Address: [address] [place], [place] [id number] Follow up with your primary care doctor (Dr. Barrett) in one week, repeat your CBC and CMP in 1 week. Take your medications as directed. Return to ER or call 911 if you experience increased swelling, tenderenss, high grade fever/chills. Discharge physical exam: Vital Signs Date Time Temp Pulse Resp B/P (MAP) Pulse Ox O2 Delivery O2 Flow Rate FiO2 08/29/24 06:32 97.6 62 14 125/51 (75) 97 Room Air 08/28/24 20:00 0.0 General: awake, alert oriented to place, time, and person HEENT: No pallor present, no icterus, moist mucous membranes Neck: No masses and tenderness Resp: Unlabored. Lungs clear to auscultation bilaterally. Cardiovascular: Regular Rate and rhythm, normal S1 and S2 without murmur, rub or gallop Abdomen: Soft and non tender no organomegaly, no guarding and rigidity, bowel sounds present Neuro: No weakness in the upper and lower limb muscles, power of the muscles 5/5 bilateral upper and lower muscles, knee reflex present bilaterally. Cranial nerves intact Extremities: s/p I&D, wound clean, no discharge. Amputated left great toe. Skin: Warm and Dry. No lesions Psych: Normal affect Discharge medications: See above Imaging: MRI performed August 28, 2024: FINDINGS: A large ulcer is seen of the plantar aspect of the foot in the region of the amputated 1st metatarsal near the medial cuneiform measuring 1.2 cm in depth and 0.8 cm in transverse. Extensive surrounding cellulitis subcutaneous edema/phlegmon noted. A complex, 1.2 x 1.2 cm subcutaneous fluid collection noted on the medial aspect of this ulcer that could be an abscess, seroma or hematoma. Underneath the ulceration, there is the stump of the flexor hallucis longus with mild fluid distention of the tendon sheath suggesting tenosynovitis. The underlying medial cuneiform is normal in signal without bone marrow edema, cortical erosion or periosteal edema. Diffuse fatty atrophy of the plantar and interosseous musculature noted. The extensor tendons and flexor digitorum tendons are unremarkable. The peroneal longus tendon is unremarkable. The plantar fascia is disrupted by the above-mentioned ulcer moderate surrounding edema noted. IMPRESSION: Large plantar ulcer with extensive surrounding cellulitis and subcutaneous edema level of the amputated 1st metatarsal slightly distal to the medial cuneiform without extension to the underlying bone and no evidence of osteomyelitis at this time. A 1.2 cm subcutaneous fluid collection medial to the ulcer noted that may represent an abscess, seroma or hematoma. There is tenosynovitis of the stump of the flexor hallucis longus. CT scan performed on 05/28/2024: Findings/impression: An ulcer seen in the plantar aspect of the foot at the level of the amputated 1st metatarsal with underlying fluid and air collection roughly measuring 4 cm in transverse, 4 cm in AP and 1.6 cm in thickness. The margins are poorly seen without IV contrast. Diffuse surrounding subcutaneous edema noted. The collection extends to the underlying medial cuneiform but no definite cortical erosion or lytic osseous lesion is seen to suggest acute osteomyelitis at this time. Recommend clinical correlation. Follow-up by MRI may be considered if clinically indicated. Recommend drainage of the fluid collection. *Problems/Diagnosis: (1) CKD (chronic kidney disease) Status: Chronic Total Time Spent on D/C: Up to 30 Minutes Date of Service: August 29, 2024 Billing Provider: CHERI GARCIA MD Common Visit Codes: 93145-CMR/OBS DISCH DAY >30min ERICK GARCIA RES August 29, 2024 10:25 CHERI GARCIA MD August 29, 2024 18:54
== END 2024-08-29 13:57 | disposition home or self-care (01) | DRG 603 ==
LOC: ER 11:12 → ED HOLD 12:30 → SUR 3N 17:57
PROVIDERS: ADMIT Family Medicine; ATTEND Family Medicine
PROC: 0Y9N0ZZ Drainage of Left Foot, Open Approach (ICD-10-PCS; principal; 2024-08-28)
DX: L02.612 Cutaneous abscess of left foot (principal); E11.22 Type 2 diabetes mellitus with diabetic chronic kidney disease; E11.40 Type 2 diabetes mellitus with diabetic neuropathy, unspecified; E78.5 Hyperlipidemia, unspecified; I12.9 Hypertensive chronic kidney disease with stage 1 through stage 4 chronic kidney disease, or unspecified chronic kidney disease; N18.30 Chronic kidney disease, stage 3 unspecified; E11.21 Type 2 diabetes mellitus with diabetic nephropathy; Z80.0 Family history of malignant neoplasm of digestive organs; Z80.1 Family history of malignant neoplasm of trachea, bronchus and lung; Z82.3 Family history of stroke; Z82.49 Family history of ischemic heart disease and other diseases of the circulatory system; Z83.3 Family history of diabetes mellitus; Z89.412 Acquired absence of left great toe; Z90.710 Acquired absence of both cervix and uterus; Z88.8 Allergy status to other drugs, medicaments and biological substances
CPT/HCPCS: 36415; 73700; 73718; 80048; 80053; 80061; 80076; 81001; 82948; 83036; 83605; 83735; 84145; 84443; 85025; 85651; 87040; 87081; 90715; 93005; 96365; 99285; A6213; A6266; A6446; A6449; G0378; J1644; J1815; J2543; J7030